=== PATIENT | male | born 1955 | race Caucasian/White ===

== ENCOUNTER 2018-01-26 15:08 | Inpatient (IN) | payer OTHER ==
[2018-01-26] MEDS ORDERED: Ondansetron INJ* 2 MG/ML VIAL IV ONE (15:37)
[2018-01-26] MEDS ORDERED: NS 0.9% 1000 ML* 1,000 ML IV ONE (15:37)
[2018-01-26 16:02] LABS: ABS Basophils 0.1 10^3/ul (0-0.2); ABS Eosinophils 0.1 10^3/ul (0-0.6); ABS Lymphocytes 0.9 10^3/ul (1.0-4.8); ABS Monocytes 0.9 10^3/ul (0-0.8); ABS Neutrophils 13.4 10^3/ul (1.5-7.7); ABS Nucleated RBC 0 10^3/ul; Eosinophil % 0.5 % (0-6); Hematocrit 45 % (42-52); Hemoglobin 15.5 g/dl (14.0-18.0); Lymphocyte % 5.9 % (25-47); Mean Corpuscular HGB Conc 34 g/dl (31-36); Mean Corpuscular Hemoglobin 29 pg (27-31); Mean Corpuscular Volume 84 fL (80-94); Nucleated Red Blood Cells % 0.1; Platelet Count 356 10^3/ul (150-450); Red Blood Count 5.44 10^6/ul (4.00-5.40); Red Cell Distribution Width 16 % (10.5-15); White Blood Count 15.3 10^3/ul (3.5-10.8)
[2018-01-26] MEDS ORDERED: Aspirin 81 mg CHEW TAB* 81 MG TAB.CHEW PO ONE (16:11)
--- NOTE | 2018-01-26 16:14 | ED ---
Abdominal Pain/Male - HPI Summary HPI Summary: This is scribe Jed Attebdomenica documenting for attending Stew Alcala. Patient is a 62 y/o M c/o intermittent CP onset ~3 weeks ago. Assoc. Sx: abd pain, decreased PO intake, N/V/D, insect bites. He reports not having eaten for 3 weeks and has trouble keeping fluids down. Patient says that he keeps up with his medications but has not been seen by a physician since October. Per Nurse note, Pt is unkept and has insects crawling on his RL prosthetic extremity; They also note that he appears to have insect bites, petechia possible. Patient reportedly has raw red excoriated skin and dried fecal matter under his abd flap. Pt reportedly has particles of food in his hair and david. PMHx: CAD. Massey, Dr. Alcala, personally performed the services described in this documentation as scribed in my presence and it is both accurate and complete. - History of Current Complaint Stated Complaint: ABD PAIN Time Seen by Provider: 01/26/18 15:16 Hx Obtained From: Patient Onset/Duration: Gradual Onset, Lasting Weeks, Still Present Timing: Intermittent Associated Signs And Symptoms: Positive: Decreased Appetite - Decreased PO intake, Nausea, Vomiting, Diarrhea, Other - POS: abd pain, insect bites - Allergies/Home Medications Allergies/Adverse Reactions: Allergies Allergy/AdvReac Type Severity Reaction Status Date / Time No Known Allergies Allergy Verified 02/29/16 07:26 Home Medications: Home Medications Albuterol/Ipratropium RESP(NF) [Combivent Respimat(NF)] 2 puff INH Q6HR [History Confirmed 01/26/18] Atorvastatin* [Lipitor*] 20 mg PO DAILY 01/26/18 [History Confirmed 01/26/18] Gabapentin CAP(*) [Neurontin 100 mg CAP(*)] 200 mg PO TID 01/26/18 [History Confirmed 01/26/18] Ibuprofen TAB* [Advil TAB*] 400 mg PO Q6H PRN 01/26/18 [History Confirmed ] Insulin GLARGINE(*) [Lantus(*)] 50 units SUBCUT BID 01/26/18 [History Confirmed 01/26/18] Insulin LISPRO* [HumaLOG*] 40 units SUBCUT TID AC 01/26/18 [History Confirmed ] Metoprolol Tartrate TAB* [Lopressor TAB*] 50 mg PO BID 01/26/18 [History Confirmed 01/26/18] Ramipril CAP* [Altace CAP*] 5 mg PO BID 01/26/18 [History Confirmed 01/26/18] amLODIPine TAB* [Norvasc 5 mg TAB*] 5 mg PO BID 01/26/18 [History Confirmed ] metFORMIN* [Glucophage 500 MG TAB *] 1,000 mg PO BID 01/26/18 [History Confirmed 01/26/18] PMH/Surg Hx/FS Hx/Imm Hx Endocrine/Hematology History: Reports: Hx Diabetes Denies: Hx Sickle Cell Disease Cardiovascular History: Reports: Hx Angina, Hx Coronary Artery Disease - 5 STENTS, Hx Hypercholesterolemia, Hx Hypertension, Hx Myocardial Infarction, Hx Peripheral Vascular Disease, Other Cardiovascular Problems/Disorders - 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 Denies: Hx Congestive Heart Failure, Hx Deep Vein Thrombosis, Hx Pacemaker/ ICD, Hx Valvular Heart Disease Respiratory History: Reports: Hx Chronic Obstructive Pulmonary Disease (COPD), Hx Pneumonia Denies: Hx Asthma, Hx Seasonal Allergies, Hx Sleep Apnea - -NO LONGER USES A C-PAP GI History: Reports: Hx Gastroesophageal Reflux Disease, Hx Ulcer Denies: Hx Hiatal Hernia, Other GI Disorders History: Denies: Other Problems/Disorders Musculoskeletal History: Reports: Hx Arthritis - HIPS, KNEES, ANKLE, Hx Back Problems - DDD, Other Musculoskeletal History - DDD, current treatment for Diabetic ulcer right foot and s/p 1st toe amputa Denies: Hx Gout, Hx Osteoporosis Sensory History: Reports: Hx Contacts or Glasses, Other Sensory Impairments - Bilateral leg neuropathy Denies: Hx Cataracts, Hx Eye Injury, Hx Glaucoma, Hx Hearing Aid Opthamlomology History: Reports: Hx Contacts or Glasses, Other Sensory Impairments - Bilateral leg neuropathy Denies: Hx Cataracts, Hx Eye Injury, Hx Glaucoma Neurological History: Denies: Other Neuro Impairments/Disorders Psychiatric History: Reports: Other Psychiatric Issues/Disorders - pt describes compulsive hoarding behavior Denies: Hx Anxiety, Hx Attention Deficit Hyperactivity Disorder, Hx Eating Disorder, Hx Depression, Hx Panic Disorder, Hx Post Traumatic Stress Disorder, Hx Inpatient Treatment, Hx Community Mental Health Tx, Hx Schizophrenia, Hx Bipolar Disorder, Hx Suicide Attempt, Hx of Violent Episodes Against Others, Hx Substance Abuse - Cancer History Hx Chemotherapy: No - Surgical History Surgery Procedure, Year, and Place: spinal [id number]. GALLBLADDER REMOVED -LATE . TOE AMPUTATED BILAT FEET - 2011, 2014 Hx Anesthesia Reactions: No - Immunization History Date of Tetanus Vaccine: 2012 or more recently Date of Influenza Vaccine: Fall 2013 Infectious Disease History: Denies: Hx Clostridium Difficile, Hx Hepatitis, Hx Human Immunodeficiency Virus (HIV), History Other Infectious Disease, Traveled Outside the [place] in Last 30 Days - Family History Known Family History: Positive: Diabetes - Both parents, Other - Father c CA hx. Mother c CVA Hx - Social History Occupation: Disabled Lives: With Family Alcohol Use: None Hx Substance Use: No Substance Use Type: Reports: None Hx Tobacco Use: Yes Smoking Status (MU): Heavy Every Day Tobacco Smoker Type: Cigarettes, Cigars Amount Used/How Often: 1/2 TO 1 PPD Length of Time of Smoking/Using Tobacco: 46 years Have You Smoked in the Last Year: Yes Review of Systems Positive: Other - POS: insect bites, decreased PO intake Positive: Abdominal Pain, Vomiting, Diarrhea, Nausea All Other Systems Reviewed And Are Negative: Yes Physical Exam - Summary Physical Exam Summary: VITAL SIGNS: Reviewed. GENERAL: Patient is an elderly and unkept male who is lying comfortable in the stretcher. Patient is not in any acute respiratory distress. HEAD AND FACE: Normocephalic and atraumatic. EYES: PERRLA, EOMI x 2, No injected conjunctiva. EARS: Hearing grossly intact. Ear canals and tympanic membranes are WNL. MOUTH: dry oral mucosa. NECK: Supple, trachea is midline, no adenopathy, no JVD. CHEST: Symmetric, no tenderness at palpation LUNGS: Clear to auscultation bilaterally. No wheezing or crackles. CVS: RRR, S1 and S2 present, no murmurs or gallops appreciated. ABDOMEN: Epigastric tenderness, pulsating mass felt. EXTREMITIES: BKA - R leg NEURO: Alert and oriented x 3. No acute neurological deficits. Speech is normal. SKIN: Dry and warm Triage Information Reviewed: Yes Vital Signs Reviewed: Yes Diagnostics - Laboratory Lab Results: Lab Results 01/26/18 Range/Units 15:45 WBC 15.3 H (3.5-10.8) 10^3/ul RBC 5.44 H (4.00-5.40) 10^6/ul Hgb 15.5 (14.0-18.0) g/dl Hct 45 (42-52) % MCV 84 (80-94) fL MCH 29 (27-31) pg MCHC 34 (31-36) g/dl RDW 16 H (10.5-15) % Plt Count 356 (150-450) 10^3/ul MPV 8.0 (7.4-10.4) um3 Neut % (Auto) 87.5 H (38-83) % Lymph % (Auto) 5.9 L (25-47) % Anderson % (Auto) 5.6 (0-7) % Eos % (Auto) 0.5 (0-6) % Baso % (Auto) 0.5 (0-2) % Absolute Neuts (auto) 13.4 H (1.5-7.7) 10^3/ul Absolute Lymphs (auto) 0.9 L (1.0-4.8) 10^3/ul Absolute Monos (auto) 0.9 H (0-0.8) 10^3/ul Absolute Eos (auto) 0.1 (0-0.6) 10^3/ul Absolute Basos (auto) 0.1 (0-0.2) 10^3/ul Absolute Nucleated RBC 0 10^3/ul Nucleated RBC % 0.1 Result Diagrams: 01/26/18 15:45 01/26/18 15:45 Lab Statement: Any lab studies that have been ordered have been reviewed, and results considered in the medical decision making process. - EKG 1541 Cardiac Rate: Tachycardia - 100 bpm EKG Interpretation: AVF in 3 EKG Comparison: Other - different from EKG done on 08/26/14 1738 Cardiac Rate: NL - 95 bpm EKG Interpretation: AVF in 3 EKG Comparison: Other - similar to previous EKG this date. Abdominal Pain Fem Course/Dx - Course Assessment/Plan: This patient is a 62-year-old male who presents to the emergency department with a chief complaint of having nausea vomiting abdominal pain this patient in the epigastric area for the last 3 weeks. The patient reports that he hasn't been eating and drinking as every time he tries he has nausea and vomiting. The patient denies any chest pain, shortness of breath or palpitations. The patient denies any back pain, palpitations or feeling that he is going to pass out. Pain is a dull aching pain in the epigastric area. The patient reports that the pain gets worse when he eats. The pain is constant is not intermittent. The severity is changing. Patient has past medical history significant for an WI status post cardiac catheterization, coronary artery disease, type 2 diabetes, hypertension, dyslipidemia, COPD, question myelitis, obstructive sleep apnea, delirium, neuropathy, and right below knee amputation. In the ED course the patient was placed in an cafeteria monitor, 2 IV assesses with obtained, patient was given aspirin. EKG shows that the patient has an excellent the patient in leads [address] an [address] depression in aVL. This EKG is changed from a previous EKG done on 08/26/14. Therefore I discussed case with Dr. Rodríguez from cardiology. He reviewed the EKG with Dr. Mireles from interventional radiology and he requests to get the troponins results since the patient is having chest pain for approximately 3 weeks. Blood test results shows a what was a count of 15.3, 87.5 neutrophils, sodium 127, BUN/creatinine 26, glucose 174, Symptom 0.4 Total Bili 1.3, AST of 51, alkaline phosphatase 394 , CK-MB of 14.6 and troponin 0.38 CRP of 76.[address] Mireles interventional radiologist came down and saw the patient and he recommends to repeat the CK-MB and troponin and to place the patient in heparin drip. He also recommends to admit the patient to the hospitalist services. He already had discussed the case with Dr. Simmons who accepted the patient for admission. At this point the patient is hemodynamically stable alert and oriented 3. Abdominopelvic CT impression: 1. Cirrhotic liver morphology with extensive hepatic lesions consistent with diffuse hepatic metastasis. 2. Extensive infradiaphragmatic adenopathy as described. 3. Mild circumferential thickening of the distal esophagus suggests the possibility of esophageal neoplasia. 4. Mild splenomegaly. 5. Small amount of ascites. Patient continues to be hemodynamically stable alert and oriented 3. - Diagnoses Provider Diagnoses: STEMI (ST elevation myocardial infarction), Metastases to the liver - Provider Notifications Discussed Care Of Patient With: Madan Rodríguez Time Discussed With Above Provider: 16:15 Instructed by Provider To: Other - Provider spoke with Dr. Rodríguez regarding further care. 17:25 - Dr. Alcala spoke with Dr. Mireles, who recommended giving the patient a CPK and discussed further care of patient. 18:42 - Patient was negative for a STEMI and will be admitted to Dr. Simmons. - Critical Care Time Critical Care Time: 75-104 min Discharge - Sign-Out/Discharge Documenting (check all that apply): Patient Departure - Discharge Plan Condition: Stable Disposition: ADMITTED TO [facility] - Billing Disposition and Condition Condition: STABLE Disposition: Admitted to [facility] Attestations Scribe Attestation: I, Dr. Alcala personally performed the services described in this documentation as scribed in my presence and it is both accurate and complete. User Type: Provider with Scribe Provider Attestation: The documentation recorded by the scribe accurately reflects the service I personally performed and the decisions made by me.
[2018-01-26 16:20] LABS: EGFR Non-African American 75.5 (>60)
[2018-01-26] MEDS ORDERED: Iodixanol* (CONTRAST) 320 MG/ML 100 ML SDV IV ONE (16:32)
--- NOTE | 2018-01-26 17:58 | ECHO ---
Patient: JARVIS ALEMAN Rec#: [id number] : 1955 Date: 01/26/2018 Age: 62y Height: 175.3 cm / 69.0 in Weight: 90.9 kg / 200.3 lbs Sex: M BSA: 2.07 Room#: ED19 Admit Date#: 01/26/2018 Type: Inpatient Referring: Deniz Farrar DO Reading: Deniz Farrar DO Electronic Communications Technician: Radha Beach RDCS CC: Tree Hernandez MD Transthoracic Echocardiogram Indication: CAD HR: 98 Rhythm: NSR Findings History: Angina,CAD,prior PCI,HLD,HTN,AR,PVD,COPD,GERD. Technical Comments: The study is technically difficult. Completed at 1743. The study is technically limited due to the patient's history of COPD. Left Ventricle: The left ventricular chamber size is normal. Mild concentric left ventricular hypertrophy is observed. There is a focal wall motion abnormality present. There is mildly decreased left ventricular systolic function. The estimated ejection fraction is 45-50%. Abnormal left ventricular diastolic function is observed. Left Atrium: The left atrial chamber size is normal. Right Ventricle: The right ventricular cavity size is normal. The right ventricular global systolic function is mildly reduced. Right Atrium: The right atrial cavity size is normal. Aortic Valve: The aortic valve is trileaflet. The aortic valve leaflets are mildly thickened. There is aortic annular calcification.that is mild There is no evidence of aortic regurgitation. There is no evidence of aortic stenosis. Mitral Valve: Severe mitral annular calcification present.that is predominantly posterior and extends into the subvalvular apparatus The mitral valve leaflets are mildly thickened. There is no evidence of mitral regurgitation. There is mild mitral stenosis. non-rheumatic Tricuspid Valve: The tricuspid valve leaflets are normal. There is no evidence of tricuspid valve regurgitation. Unable to estimate the right ventricular systolic pressure. There is no tricuspid stenosis. Pulmonic Valve: The pulmonic valve appears normal. There is no evidence of pulmonic regurgitation. There is no pulmonic stenosis. Pericardium: The pericardium appears normal. There is no significant pericardial effusion. Aorta: There is no dilatation of the ascending aorta. There is no dilatation of the aortic arch. There is no dilation of the aortic root. Pulmonary Artery: The main pulmonary artery is not well visualized. Venous: The venous system is not well visualized. Conclusions The left ventricular chamber size is normal. Mild concentric left ventricular hypertrophy is observed. There is mildly decreased left ventricular systolic function. The estimated ejection fraction is 45-50% with hypokinesis of the basal to mid inferior/inferolateral wall The right ventricular cavity size is normal. The right ventricular global systolic function is mildly reduced. Severe mitral annular calcification present.that is predominantly posterior and extends into the subvalvular apparatus associated with mild non-rheumatic mitral stenosis Unable to estimate the right ventricular systolic pressure. Compared to prior study from 12/2011, a focal wall motion abnormality and mild RV hypokinesis are now present (both normal prior). Measurements Name Value Normal Range RVIDd (AP) 2D 2.1 cm (0.9 - 2.6) RVDdMajor (2D) 2.6 cm (2.2 - 4.4) RAd ISD 4CH 3.5 cm (3.4 - 4.9) RA (A4C)W 3.3 cm (2.9 - 4.6) IVSd (2D) 1.1 cm (0.6 - 1) LVPWd (2D) 1.1 cm (0.6 - 1) LVIDd (2D) 3.6 cm (3.6 - 5.4) LVIDs (2D) 3.5 cm - LV FS (2D) 5 % (25 - 45) Aortic Annulus 2.3 cm (1.4 - 2.6) Ao root diameter (2D) 3.1 cm (2.1 - 3.5) Ascending Ao 2 cm (2.1 - 3.4) Aortic arch 2 cm (1.8 - 3.4) Descending Ao 0.6 cm - LA dimension (AP) 2D 3.6 cm (2.3 - 3.8) LAd ISD 4CH 5.1 cm (2.9 - 5.3) LA ISD 4CH W 3.5 cm (2.5 - 4.5) Name Value Normal Range LA ESV SP 4CH (A/L) 16 ml - LA ESV SP 2CH (A/L) 30 ml - LA ESV BP (A/L) index 23 ml/m2 - Name Value Normal Range MV E-wave Vmax 1 m/sec - MV deceleration time 143 msec - MV A-wave Vmax 1.7 m/sec - MV E:A ratio 0.8 ratio - LV septal e' Vmax 0.06 m/sec - LV lateral e' Vmax 0.09 m/sec - LV E:e' septal ratio 16.67 ratio - LV E:e' lateral ratio 11.11 ratio - Name Value Normal Range AV Vmax 1.3 m/sec - AV VTI 20.6 cm - AV peak gradient 6 mmHg - AV mean gradient 3 mmHg - LVOT diameter 2.2 cm - LVOT Vmax 0.9 m/sec - LVOT VTI 15.3 cm - LVOT peak gradient 3 mmHg - LVOT mean gradient 1 mmHg - Name Value Normal Range MV PHT 46 msec - MR Vmax 1.7 m/sec - MR VTI 30.8 cm - MVA (PHT) 4.8 cm2 - MVA (continuity VTI) 1.9 cm2 - Name Value Normal Range PV Vmax 1.1 m/sec - PV peak gradient 5 mmHg -
[2018-01-26] MEDS ORDERED: Heparin DRIP 25,000 UNITS(*) 25,000 UNITS/500 ML BAG IV SCH ×3 (18:30→20:00)
[2018-01-26] MEDS ORDERED: Ticagrelor* 90 MG TAB PO SCH (19:00)
[2018-01-26] MEDS ORDERED: Metoprolol Tartrate TAB* 25 MG PO SCH (19:00)
[2018-01-26] MEDS ORDERED: Heparin DRIP 25,000 UNITS(*) 25,000 UNITS/500 ML BAG ONE (19:40)
[2018-01-26] MEDS ORDERED: Heparin VIAL(*) 5000 UNITS/ML VIAL (FIVE THOUSAND) ONE (19:40)
--- NOTE | 2018-01-26 19:40 | RAD ---
INDICATION: Abdominal pain COMPARISON: CT aortogram and runoff July 20, 2015 TECHNIQUE: Axial source images were obtained from the hemidiaphragms to the symphysis pubis following administration of oral and intravenous contrast. 100 mL Visipaque 320 was utilized. Coronal and sagittal reconstructed images were acquired. There is suboptimal contrast opacification due to difficulties with the IV. Lung bases: The lung bases are clear. There is prior cardiothoracic surgery and/or stenting Liver: There is cirrhotic liver morphology. There are numerous hepatic lesions consistent with diffuse hepatic metastasis. These involve both right and left hepatic lobes. Similar lesions are confluent. The largest lesions measure approximately 4 cm Gallbladder: Cholecystectomy. Spleen: The spleen is mildly enlarged measuring 14 cm in diagonal dimension. There are no masses. Pancreas: No definitive focal pancreatic findings or ductal dilatation. There is extensive adjacent adenopathy is noted below. Adrenal glands: There is no evidence of adrenal mass. Kidneys: The kidneys are normal in size and position. There are prompt nephrograms and there is prompt excretion bilaterally. There is a 5 cm left renal cyst. There is also a left-sided parapelvic cyst There is no evidence of nephrolithiasis. Adenopathy: There is extensive adenopathy. There are multiple enlarged lymph nodes at the diaphragmatic hiatus. There is a confluent periportal mass measuring approximately 6 cm in greatest transverse dimension and there are multiple additional smaller peripancreatic and retroperitoneal lymph nodes extending to near the bifurcation. Fluid collections: There is a small amount of ascites and a right-sided diaphragmatic location anteriorly. Vessels:There are atherosclerotic changes involving the aorta and iliac vessels. There is no focal aneurysm. The IVC appears normal. GI tract: There are no acute CT bowel findings. There is no obstruction. There is circumferential mural thickening of the distal esophagus worrisome for esophageal neoplasia. There are no specific abnormalities the lower GI tract. Pelvic organs: The prostate and seminal vesicles appear normal Bladder: There are no bladder masses. Abdominal and pelvic soft tissues: The extraperitoneal abdominal and pelvic soft tissues appear normal.. Osseous structures: There are advanced osteoarthritic changes of thoracolumbar spine. There is grade 2 anterolisthesis of L5-S1 with evidence of prior surgical fusion at L4-S1. Other: None IMPRESSION: 1. Cirrhotic liver morphology with extensive hepatic lesions consistent with diffuse hepatic metastasis. 2. Extensive infradiaphragmatic adenopathy as described. 3. Mild circumferential thickening of the distal esophagus suggests the possibility of esophageal neoplasia. 4. Mild splenomegaly. 5. Small amount of ascites.
[2018-01-26] MEDS ORDERED: Heparin VIAL(*) 5000 UNITS/ML VIAL (FIVE THOUSAND) IV ONE (20:09)
[2018-01-26] MEDS ORDERED: Ondansetron INJ* 2 MG/ML VIAL IV PRN (20:17)
[2018-01-26] MEDS ORDERED: Heparin VIAL(*) 5000 UNITS/ML VIAL (FIVE THOUSAND) IV PRN (20:42)
[2018-01-26] MEDS ORDERED: Dextrose 50% Syringe 50 ML* 25 GM/50 ML SYRINGE IV PUSH PRN (20:44)
[2018-01-26] MEDS ORDERED: Atorvastatin* 80 MG TAB PO ONE (21:00)
--- NOTE | 2018-01-26 22:21 | HP ---
CC: Dr. Hernandez * HISTORY AND PHYSICAL: DATE OF ADMISSION: 01/26/18. PRIMARY CARE PROVIDER: Dr. Hernandez. CHIEF COMPLAINT: Abdominal pain and difficulty keeping food down. HISTORY OF PRESENT ILLNESS: Mr. Driscoll is a 62-year-old male, who has a history of coronary artery disease, type 2 diabetes, hypertension, peripheral vascular disease, and hyperlipidemia, who presents to the emergency room with approximately 1 month of abdominal pain and difficulty keeping food down. The patient states that he has had midabdominal pain for approximately last 1 month. It seems to come and go. In addition to the pain, he notes that any times he tries to eat anything within a couple minutes he vomits it back up. The patient believes that he may have lost upwards 100 pounds. According to records from [facility], the patient was about 222 pounds in January 2016 and is currently weighing 189 pounds. The patient denies any changes in bowel movements. He states that the stool consistency has been normal. He ultimately was feeling no better and therefore presented to the emergency room today. In addition to the abdominal pain, the patient does state that off and on over the last month or so, he has had chest discomfort. He states that he feels like he was punched in the chest. He states that it would last anywhere from a couple minutes to about 20 minutes. He has no associated symptoms such as diaphoresis, nausea, or shortness of breath. The patient states that he last saw his primary care provider approximately 3 months ago and at that time he felt essentially at his baseline. PAST MEDICAL HISTORY: 1. Coronary artery disease. 2. Hypertension. 3. Type 2 diabetes. 4. Peripheral vascular disease. 5. Hyperlipidemia. PAST SURGICAL HISTORY: 1. Cholecystectomy. 2. Right below knee amputation. 3. Left first toe amputation. 4. Back surgery. MEDICATIONS: 1. Ramipril 5 mg p.o. b.i.d. 2. Metformin 1000 mg p.o. b.i.d. 3. Metoprolol tartrate 50 mg p.o. b.i.d. 4. Lispro 40 units subcutaneous t.i.d. a.c. 5. Lantus 50 units subcutaneous b.i.d. 6. Ibuprofen 400 mg p.o. q.6 hours p.r.n. pain. 7. Combivent Respimat 2 puffs inhaled q.6 hours. 8. Gabapentin 200 mg p.o. t.i.d. 9. Famotidine 40 mg p.o. b.i.d. 10. Lipitor 20 mg p.o. daily. 11. Amlodipine 5 mg p.o. b.i.d. 12. Aspirin 325 mg p.o. daily. 13. Amitriptyline 25 mg p.o. nightly. ALLERGIES: No known drug allergies. FAMILY HISTORY: Mom may be at the age of 70. He was not quite sure why she , he thought possibly a cancer. Dad at age of 81. He thinks that he of pancreatic cancer though was not completely sure. SOCIAL HISTORY: The patient is smoking approximately a quarter pack per day, but had smoked 3 quarters to 1 pack per day previously, he smoked since the age of 15. He denies any alcohol use. He denies any recreational drug use. 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 He is . He has 2 children. He indicates that his niece, Maricruz Mayer, would be his healthcare proxy. REVIEW OF SYSTEMS: A complete 11-system review of systems is obtained. Pertinent positives and negatives are as per HPI. In addition, the patient does state that his appetite had been poor in addition to not been able to keep food down. He has had an occasional cough without any sputum production and he feels that his urine has been slightly red tinged at times. Otherwise, review of systems is as per HPI and otherwise negative. PHYSICAL EXAMINATION GENERAL: The patient is a well-developed, disheveled appearing middle-aged male seen sitting up in the stretcher, in no acute distress. VITAL SIGNS: Blood pressure 142/87, pulse 93, respirations 19, temp 97.2, O2 sat 84% on room air. HEENT: Pupils are equal and round. Extraocular muscles are intact. Oropharynx is clear. Oral mucosa is moist. The patient is edentulous. NECK: There is no submandibular, cervical or supraclavicular adenopathy. Thyroid is not enlarged. No thyroid nodules noted. PULMONARY: Lungs are clear to auscultation bilaterally. CARDIAC: Normal S1, S2. Regular rate and rhythm. I did not appreciate any murmurs. There is no edema to the left lower extremity. ABDOMEN: Bowel sounds are present. Abdomen is soft, nontender, nondistended. MUSCULOSKELETAL: The patient is status post right below knee amputation. He has his prosthesis on. There is full active range of motion of all 4 extremities. SKIN: Warm though his left foot is somewhat cool to touch. The patient has areas of brownish thickened skin scattered across this body. He has very coarse thick scaly skin noted to the left foot. There is what appeared to be petechiae on the arms as well as a slightly erythematous raised scaly rash on the arms. NEUROLOGIC: Cranial nerves II through XII are grossly intact. Sensation is intact to light touch throughout. Strength is 5/5 and symmetric both upper and lower extremities bilaterally. PSYCH: The patient is alert. He is oriented x3. Affect appears appropriate. DIAGNOSTIC STUDIES/LAB DATA: Labs: WBC 15.3, hemoglobin 15.5, hematocrit 45, platelets 356. Sodium 127, potassium 4.7, chloride 92, CO2 of 26, BUN 26, creatinine 1.0, glucose 173, lactic acid 1.9, calcium 10.4. Bilirubin 1.3, AST 51, ALT 19, alk phos 394. Ammonia 43, CPK 48. CK-MB 14.6, troponin 0.38. CRP 76.33. BNP 284. Albumin 3.4, lipase 16. EKG reveals sinus tachycardia with mild ST elevation in leads III and aVF with Q waves in leads III and aVF. Transthoracic echocardiogram reveals mild concentric LVH. There is mildly decreased left ventricular systolic function with an estimated EF of 45% to 50% . There is hypokinesis of the basal and mid inferior/inferior lateral wall. The right ventricular global systolic function is mildly reduced. There is severe mitral annular calcification present that is predominantly posterior and extends into the subvalvular apparatus associated with mild nonrheumatic mitral stenosis. Compared to the prior study of December 2011, a focal wall motion abnormality and mild right ventricular hypokineses are not present. Both were previously normal. CT abdomen and pelvis reveals cirrhotic liver morphology with extensive hepatic lesions consistent with a few hepatic metastasis. There is extensive infradiaphragmatic adenopathy. There is mild circumferential thickening of the distal esophagus suggesting the possibility of esophageal neoplasia. There is mild splenomegaly. There is a small amount of ascites. There is a 5-cm left renal cyst. There is also a left-sided parapelvic cyst. There is no evidence of nephrolithiasis. ASSESSMENT AND PLAN: Mr. Driscoll is a 62-year-old male with a history of coronary artery disease, type 2 diabetes, hypertension, peripheral vascular disease, and hyperlipidemia, who presents to the emergency room with complaints of approximately 1 month of intermittent abdominal pain and inability to keep food down and subsequently also admits to intermittent chest pain. 1. Probable subacute myocardial infarction. The patient likely had a myocardial infarction within the last few days. The patient's troponin initially was 0.38 and trended down to 0.34 on subsequent draw approximately 2 hours and 15 minutes after the first. The patient was seen in the emergency room by Dr. Mireles for ST elevation on his EKG. At this point, Dr. Mireles has recommended treating the patient with dual antiplatelet therapy as well as the heparin drip. This has been initiated. The patient will also continue on metoprolol and I will increase his Lipitor to 40 mg daily. Cardiology will continue to follow along though given the probable new diagnosis of metastatic cancer, unclear if the patient would benefit from undergoing cardiac catheterization at this time. 2. Dysphagia/abdominal pain/hepatic metastasis. At this point, it is likely the patient has metastatic cancer. The primary is not completely clear; however , given the patient's symptoms of vomiting very shortly after eating, I am concerned that this could represent esophageal cancer. The patient will need a GI consultation. The patient's LFTs are up and this is likely related to the hepatic metastasis. I did inform the patient of findings of the CAT scan. 3. Hyponatremia. The patient's sodium level is low at 127. I suspect this is secondary to dehydration as the patient has not been eating or drinking well over the last 1 month. He will be started on normal saline at 75 mL per hour. Followup labs will be obtained tomorrow. 4. Hypercalcemia. This likely is secondary to dehydration, but may also be related to an underlying cancer. This will need to be followed closely. 5. Leukocytosis. The patient has a moderate leukocytosis of 15.3. It does not describe any concerning symptoms for infection. This will just be monitored for now. 6. Type 2 diabetes. I am going to hold the patient's usual doses of insulin and for now we will place him on lispro sliding scale as it is unclear with him not eating or drinking well where his sugars will land. The patient will be given a full liquid diet for now due to his issues with swallowing food. 7. Hypertension. The patient's blood pressure is moderately elevated currently. We will monitor his blood pressure on his usual doses of metoprolol, amlodipine, and ramipril. 8. DVT prophylaxis: According to the Adult Thrombosis Prophylaxis Risk Factor Assessment Guide, the patient has a total risk factor score of 4 (this does not include the likely diagnosis of cancer) making him high risk. He will be on a heparin drip for the subcutaneous myocardial infarction. 9. Code status is full. TIME SPENT: Seventy minutes were spent admitting this patient. [id number]/CPS #: [id number] MTDD
[2018-01-27] MEDS: Amitriptyline TAB* 25 MG PO SCH ×2 (00:27→22:06)
[2018-01-27] MEDS: Ramipril CAP* 5 MG PO SCH ×3 (00:28→22:06)
[2018-01-27] MEDS: Metoprolol Tartrate TAB* 50 mg PO SCH ×3 (00:28→22:06)
[2018-01-27] MEDS: Gabapentin CAP(*) 100 MG PO SCH ×4 (00:28→22:06)
[2018-01-27] MEDS: Famotidine TAB* 20 MG PO SCH ×3 (00:28→22:06)
[2018-01-27] MEDS: Insulin LISPRO* 1 UNITS UNIT SUBCUT SCH ×5 (00:43→21:45)
[2018-01-27] MEDS ORDERED: Atorvastatin* 40 MG TAB PO SCH (00:45)
[2018-01-27] MEDS: Atorvastatin* 40 MG TAB PO SCH ×2 (01:16→22:06)
[2018-01-27] MEDS: NS 0.9% 1000 ML* 1,000 ML IV SCH ×2 (02:35→16:05)
[2018-01-27] MEDS: Albuterol/Ipratropium RESP(NF) MDI (Combivent Respimat) INH SCH ×2 (05:53→05:55)
[2018-01-27] MEDS ORDERED: Albuterol/Ipratropium NEB.SOL* Albuterol 2.5 MG/Ipratropium 0.5 MG 3 ML INH SCH (08:00)
[2018-01-27] MEDS ORDERED: Albuterol HFA INHALER* 8 gm MDI INH PRN (08:39)
[2018-01-27] MEDS ORDERED: Albuterol/Ipratropium NEB.SOL* Albuterol 2.5 MG/Ipratropium 0.5 MG 3 ML INH PRN (08:39)
[2018-01-27] MEDS ORDERED: Aspirin TAB* 325 MG PO SCH (09:00)
[2018-01-27 10:18] LABS: ABS Basophils 0.1 10^3/ul (0-0.2); ABS Eosinophils 0.1 10^3/ul (0-0.6); ABS Lymphocytes 0.7 10^3/ul (1.0-4.8); ABS Monocytes 0.7 10^3/ul (0-0.8); ABS Neutrophils 8.8 10^3/ul (1.5-7.7); ABS Nucleated RBC 0 10^3/ul; Hematocrit 38 % (42-52); Hemoglobin 13.1 g/dl (14.0-18.0); Lymphocyte % 6.9 % (25-47); Mean Corpuscular HGB Conc 34 g/dl (31-36); Mean Corpuscular Hemoglobin 29 pg (27-31); Mean Corpuscular Volume 84 fL (80-94); Mean Platelet Volume 7.7 um3 (7.4-10.4); Nucleated Red Blood Cells % 0.1; Platelet Count 248 10^3/ul (150-450); Red Blood Count 4.53 10^6/ul (4.00-5.40); Red Cell Distribution Width 16 % (10.5-15); White Blood Count 10.4 10^3/ul (3.5-10.8)
[2018-01-27] MEDS: Aspirin 81 mg CHEW TAB* 81 MG TAB.CHEW PO SCH (10:28)
[2018-01-27 10:35] LABS: EGFR Non-African American 97.6 (>60)
[2018-01-27] MEDS ORDERED: Nitroglycerin TAB 0.4 MG* 0.4 MG TAB SL PRN (11:30)
[2018-01-27] MEDS ORDERED: Nitroglycerin TAB 0.4 MG* 0.4 MG TAB ONE (11:34)
--- NOTE | 2018-01-27 11:57 | CONS ---
CC: Dr. Tree Hernandez, the [facility] on [facility] in [place] CARDIOLOGY CONSULTATION NOTE: DATE OF CONSULT: 01/26/18 REASON FOR CONSULT: Asked by Dr. Alcala in the emergency room to assess the patient with abnormal EKG and troponin with history of coronary artery disease. HISTORY OF PRESENT ILLNESS: The patient is a 62-year-old white male who states he has been sick for possibly 1 month with lower chest discomfort and upper epigastric discomfort. He states that it gene rally will last some 20 minutes. There was not significant radiation. He has tried nitroglycerin an d at times it would help. It was difficult for him to say whether or not it definitely occurred with exertion. In general, he was a poor historian. He has been unable to keep food down or drink and dennis s been feeling weak in general. He is not taking care of himself and comes in very unkempt with actu al insects crawling on his right lower leg prosthesis. Because of persistence of symptoms, he present ed to the emergency room, not specifically because he had a severe episode at the time of coming to [facility] ER. In the emergency room, an EKG was done that showed minimal ST segment elevation in III and aV F with Q-waves already developed. There was no significant reciprocal changes seen. Dr. Alcala initi ally called Dr. Farrar. Dr. Farrar deferred calling a STEMI CIERA and as such, I am now seeing the pa tient. The patient's initial troponin came back at 0.38. There was no CPK or MB ordered and I order ed that and it eventually came back a total CPK of 48 and an MB of 14.6. A repeat EKG that was done some 2 hours later showed no significant change compared to the first one and of note, the patient st ates he was completely free of any chest or jaw or arm discomfort. His past cardiac history includes a history of stents placed to the circumflex for an acute posterior wall myocardial infarction on 12/10/11. His EKG at that time demonstrated marked ST segment elevati on inferiorly in V4 through [address] segment depression in V1 through V3. The next day on , he had stenting of the LAD. He had moderate proximal disease in the LAD, in the proximal RCA and mid to distal right coronary artery. He had a stress test done in February 2016 that showed no ischemia or infarction and the last time I saw him in the office was 02/08/17, at which point he was not complaining about any significant cardiac symptoms. Specifically, his biggest problem was perip heral vascular disease, for which he had attempts at interventions, which were unable to give a compl ete result and as such, he had amputation work done. He obviously was not overly exerting himself du e to his problems. Unfortunately, he continued to smoke, despite all efforts urging him to stop as w ell as Dr. Hernandez urging him to stop as well. His last cholesterol check was found to be well within guideline range from that office visit. PAST MEDICAL HISTORY: Significant for hyperlipidemia, hypertension, insulin- requiring diabetes isabela itus, peripheral vascular disease. PAST SURGICAL HISTORY: Included amputation work. CURRENT MEDICATIONS: At home had revealed; 1. Ramipril 5 mg twice a day. 2. Metformin 1000 mg twice a day. 3. Metoprolol tartrate 50 mg twice a day. 4. Humalog 40 units t.i.d. with meals. 5. Lantus 50 units subcu b.i.d. 6. Ibuprofen p.r.n. 7. Albuterol inhaler 2 puffs q.6 hours. 8. Gabapentin 200 mg 3 times a day. 9. Famotidine 40 mg twice a day. 10. Atorvastatin was listed at 20 mg a day, although my last office note when I saw him last year dennis d him at 80 mg a day. I do not have any knowledge of him having had it decreased. 11. Amlodipine 5 mg twice a day. 12. A full dose aspirin 325 a day. 13. Amitriptyline 25 mg at bedtime. 14. It should be noted that the last time I saw him in the office, he was on clopidogrel to treat sissy th his peripheral vascular disease and his coronary artery disease. PHYSICAL EXAM: When I saw him in the emergency room revealed: General: The patient appeared quite disheveled with food in his david and reported insects on his lower prosthesis. In general, he appea red to be unkempt. Vital Signs: Blood pressure 140/86, heart rate was 94, respirations were 20, O2 saturation was 99% on room air. Neck was supple. I could not appreciate increased JVP. Carotids dennis d fair upstroke and volume. There were no definitive bruits or transmitted murmurs. Conjunctivae wer e pink. Sclerae clear. Lungs revealed no accessory muscle usage. There was fair excursion. I do no t hear any active rales, rhonchi, or wheezes. Heart revealed no visible heaves. No palpable heaves o r thrills. A soft systolic murmur was noted at the left sternal border. Abdomen was obese. I could not assess accurately for organomegaly. Extremities had the amputation of the right lower extremity. Neurological: The patient had appeared alert and oriented. Musculoskeletal: He moves all extremit ies appropriately. Psychological: The patient with normal affect. DIAGNOSTIC STUDIES/LAB DATA: Laboratory results in the emergency room, white count was 15,300 with a hemoglobin and hematocrit of 15.5 and 45 and platelet count of 356,000. His sodium was 127, potassi um 4.7, chloride 92, bicarb 26, BUN and creatinine 26 and 1.0. His glucose was 174, calcium 10.4. T otal bili 1.3, SGOT 51, SGPT 19, alk phosphatase 394. Ammonia level was 43, total CPK of 48 and MB 1 4.6. Troponin 0.38. C-reactive protein 76.33. B-natriuretic peptide 284. Total protein 77, albumi n 3.4, lipase 16, lactic acid 1.9. A repeat CPK 38, MB 10.1, troponin 0.34. EKG initially dated 01/26/18 timed 1541 showed sinus tachycardia, heart rate of 100, minimal J-point elevation in III and aVF with significant Q-waves already present and minimal R-waves in III and aVF. There were no significant reciprocal changes with flat ST-segment and aVL. Repeat EKG done approxi mately 2 hours later showed no dramatic change. A transthoracic echocardiogram was performed and interpreted by Dr. Farrar revealing mild concentric left ventricular hypertrophy with a mildly decreased systolic function. EF 45% to 50% with focal wal l motion abnormalities with hypokinesis of the basal to mid inferolateral wall and a question of mild ly reduced right ventricular systolic function. Severe mitral annular calcification posteriorly exte nding into the subvalvular structures with mild non-rheumatic mitral stenosis suggested. Compared to the prior study, the focal wall motion abnormality at LV and RV are noted. Both were prior normal. OVERALL ASSESSMENT: Mr. Driscoll now presents with lower chest abdominal discomfort with an abnormal EKG suggesting an inferior wall myocardial infarction age indeterminate. His 2 sequential troponins do no show elevation suggesting that this is an emergent ST-segment elevation inferior wall myocardial i nfarction. At this point in time, aggressive cardiac management with beta-shine therapy and choles terol management as well as aspirin therapy will be pursued. Consideration for dual antiplatelet marvin uld be pursued if further workup does not seem to demonstrate any other cause for his current symptom atology. Heparin therapy will be instituted at this point given the potential for an acute coronary syndrome. Of note, the patient had been a DNR in the past because he did not want to be on prolonged life supporting systems and at this point in time, he will consider reversing it if there is no irre versible other causes present. We will follow him along with you. Thank you very much for asking us to see him. ADDENDUM: The patient's abdominopelvic CT came back revealing suggestive of metastatic lesions in hi s liver and a thickened esophagus suggesting possible primary neoplasia. At this point in time, I di scussed the case again with the hospitalist and the emergency room physician. They will hold on any dual antiplatelet and GI will be consulted for the potential of a biopsy to make the diagnosis. Obvi ously, no aggressive pursuits will be made at this point regarding coronary artery disease as he is n ot having an unstable situation with stable hemodynamics. We will await the results of the biopsy to give us further guidance on his general medical status. [id number]/[facility] #: [id number]
[2018-01-27] MEDS: Nystatin TOP POWDER* 15 GM BTL TOPICAL SCH ×3 (12:56→22:30)
--- NOTE | 2018-01-27 17:45 | PN ---
Subjective Date of Service: 01/27/18 Interval History: Pt complaint of sharp epigastric/xiphoid process abdominal pain, similar to what he has been having for last several weeks. Worst 9/10, improved to 5/10 with nitro then resolved. Denies SOB, N/V. EKG stable Inferior Qs with less elevated ST segments. Cardiology on board. Large liquid BM. Is able to hold down food for about "1/2 a minute" GI consulted, EGD planned monday. Objective Active Medications: Acetaminophen (Tylenol Tab*) 650 mg PO Q4H PRN PRN Reason: PAIN Albuterol (Ventolin Hfa Inhaler*) 2 puff INH Q6H PRN PRN Reason: SOB/WHEEZING Albuterol/Ipratropium (Duoneb (Albuterol 2.5 Mg/Ipratropium 0.5 Mg)) 1 neb INH Q6H PRN PRN Reason: SOB/WHEEZING Amitriptyline HCl (Elavil Tab*) 25 mg PO BEDTIME [facility] Last Admin: 01/27/18 00:27 Dose: 25 mg Aspirin (Aspirin 81 Mg Chew Tab*) 81 mg PO DAILY [facility] Last Admin: 01/27/18 10:28 Dose: 81 mg Atorvastatin Calcium (Lipitor*) 40 mg PO BEDTIME [facility] Last Admin: 01/27/18 01:16 Dose: 40 mg Dextrose (D50w Syringe 50 Ml*) 12.5 gm IV PUSH .FOR FS < 60 - SS PRN PRN Reason: FS < 60 Famotidine (Pepcid Tab*) 40 mg PO BID [facility] Last Admin: 01/27/18 10:28 Dose: 40 mg Gabapentin (Neurontin Cap(*)) 200 mg PO TID [facility] Last Admin: 01/27/18 15:47 Dose: 200 mg Sodium Chloride (Ns 0.9% 1000 Ml*) 1,000 mls @ 75 mls/hr IV PER RATE [facility] Last Admin: 01/27/18 02:35 Dose: 75 mls/hr Insulin Human Lispro (Humalog*) 0 units SUBCUT ACHS [facility]; Protocol Last Admin: 01/27/18 17:20 Dose: Not Given Metoprolol Tartrate (Lopressor Tab*) 50 mg PO BID [facility] Last Admin: 01/27/18 10:30 Dose: 50 mg Nitroglycerin (Nitroglycerin Tab 0.4 Mg*) 0.4 mg SL Q5M PRN PRN Reason: ANGINA Last Admin: 01/27/18 11:35 Dose: 0.4 mg Nystatin (Nystatin Top Powder*) 1 applic TOPICAL TID [facility] Last Admin: 01/27/18 12:56 Dose: Not Given Ondansetron HCl (Zofran Inj*) 4 mg IV Q6H PRN PRN Reason: NAUSEA Ramipril (Altace Cap*) 5 mg PO BID [facility] Last Admin: 01/27/18 10:31 Dose: 5 mg Vital Signs - 8 hr 01/27/18 01/27/18 01/27/18 10:30 11:12 15:47 Temperature 97.3 F Pulse Rate 80 Respiratory 16 18 16 Rate Blood Pressure 119/66 (mmHg) O2 Sat by Pulse 98 Oximetry Oxygen Devices in Use Now: Nasal Cannula Appearance: Chronically ill appearing, disheveled. Eyes: No Scleral Icterus Neck: NL Appearance and Movements; NL JVP Respiratory: Symmetrical Chest Expansion and Respiratory Effort, Clear to Auscultation Cardiovascular: NL Sounds; No Murmurs; No JVD, RRR Extremities: No Edema Skin: - - patchy erythema left ACF. Neurological: Alert and Oriented x 3, NL Sensation, NL Muscle Strength and Tone Nutrition: Taking PO's Result Diagrams: 01/27/18 10:00 01/27/18 10:00 Additional Lab and Data: Laboratory Results - last 24 hr 01/26/18 01/26/18 01/27/18 15:35 18:04 00:26 WBC RBC Hgb Hct MCV MCH MCHC RDW Plt Count MPV Neut % (Auto) Lymph % (Auto) [place] % (Auto) Eos % (Auto) Baso % (Auto) Absolute Neuts (auto) Absolute Lymphs (auto) Absolute Monos (auto) Absolute Eos (auto) Absolute Basos (auto) Absolute Nucleated RBC Nucleated RBC % APTT 32.2 Sodium Potassium Chloride Carbon Dioxide Anion Gap BUN Creatinine Est GFR ( Amer) Est GFR (Non-Af Amer) BUN/Creatinine Ratio Glucose POC Glucose (mg/dL) 132 H Hemoglobin A1c Calcium Total Creatine Kinase 38 CK-MB (CK-2) 10.1 H Troponin I 0.34 H* 01/27/18 01/27/18 01/27/18 04:58 07:48 10:00 WBC RBC Hgb Hct MCV MCH MCHC RDW Plt Count MPV Neut % (Auto) Lymph % (Auto) [place] % (Auto) Eos % (Auto) Baso % (Auto) Absolute Neuts (auto) Absolute Lymphs (auto) Absolute Monos (auto) Absolute Eos (auto) Absolute Basos (auto) Absolute Nucleated RBC Nucleated RBC % APTT Sodium 130 L Potassium 4.1 Chloride 99 L Carbon Dioxide 24 Anion Gap 7 BUN 23 Creatinine 0.80 Est GFR ( Amer) 118.1 Est GFR (Non-Af Amer) 97.6 BUN/Creatinine Ratio 28.8 H Glucose 102 H POC Glucose (mg/dL) 102 H 100 Hemoglobin A1c Calcium 9.1 Total Creatine Kinase CK-MB (CK-2) Troponin I 0.32 H* 01/27/18 01/27/18 01/27/18 10:00 10:00 10:00 WBC 10.4 RBC 4.53 Hgb 13.1 L Hct 38 L MCV 84 MCH 29 MCHC 34 RDW 16 H Plt Count 248 MPV 7.7 Neut % (Auto) 84.7 H Lymph % (Auto) 6.9 L [place] % (Auto) 6.4 Eos % (Auto) 1.0 Baso % (Auto) 1.0 Absolute Neuts (auto) 8.8 H Absolute Lymphs (auto) 0.7 L Absolute Monos (auto) 0.7 Absolute Eos (auto) 0.1 Absolute Basos (auto) 0.1 Absolute Nucleated RBC 0 Nucleated RBC % 0.1 APTT 33.5 Sodium Potassium Chloride Carbon Dioxide Anion Gap BUN Creatinine Est GFR ( Amer) Est GFR (Non-Af Amer) BUN/Creatinine Ratio Glucose POC Glucose (mg/dL) Hemoglobin A1c 6.6 H Calcium Total Creatine Kinase CK-MB (CK-2) Troponin I 01/27/18 01/27/18 12:04 17:01 WBC RBC Hgb Hct MCV MCH MCHC RDW Plt Count MPV Neut % (Auto) Lymph % (Auto) [place] % (Auto) Eos % (Auto) Baso % (Auto) Absolute Neuts (auto) Absolute Lymphs (auto) Absolute Monos (auto) Absolute Eos (auto) Absolute Basos (auto) Absolute Nucleated RBC Nucleated RBC % APTT Sodium Potassium Chloride Carbon Dioxide Anion Gap BUN Creatinine Est GFR ( Amer) Est GFR (Non-Af Amer) BUN/Creatinine Ratio Glucose POC Glucose (mg/dL) 97 89 Hemoglobin A1c Calcium Total Creatine Kinase CK-MB (CK-2) Troponin I Microbiology and Other Data: Microbiology 01/26/18 18:04 Blood Venous Aerobic Blood Culture - Preliminary 01/26/18 18:04 Blood Venous Anaerobic Blood Culture - Preliminary 01/26/18 18:04 Blood Venous Blood MRSA/MSSA (PCR) - Final Mrsa Negative S.aureus Negative 01/26/18 13:45 Blood Venous Aerobic Blood Culture - Preliminary No Growth Day 1 01/26/18 13:45 Blood Venous Anaerobic Blood Culture - Preliminary No Growth Day 1 Assess/Plan/Problems-Billing Assessment: 62 yo male PMH CAD s/p stents(circ, LAD, RCA), IDDMT2, PVD s/p right BKA, HLD, current smoker p/w Inferior Q waves and ST elevations, downtrending troponins, 1 month epigastric/lower chest pain. Likely sub-acute STEMI. CT A/P with extensive hepatic lesions and infradiaphragmatic lymphadenopathy concerning for metastatic disease of unknown primary. Distal esophageal thickening. Planned EGD Mon 01/29. - Patient Problems (1) STEMI (ST elevation myocardial infarction) Current Visit: Yes Status: Acute Code(s): I21.3 - ST ELEVATION (STEMI) MYOCARDIAL INFARCTION OF [facility] SITE SNOMED Code(s): 287955154 Comment: metoprolol 50 po BID. subacute given Q waves, symptoms last month and downtrending troponins. aspirin 81mg atorvastatin 40mg initially on heparin gtt for ~6 hours overnight but they were unable to obtain monitoring aPTT so it was stopped. Discussed with Dr. Mireles and heparin gtt not clearly indicated at this time given his STEMI is likely subacute in recent weeks likely. (2) Hepatic metastases Current Visit: Yes Status: Acute Code(s): C78.7 - SECONDARY MALIG NEOPLASM OF LIVER AND INTRAHEPATIC BILE DUCT SNOMED Code(s): 34967533 Comment: suspicion for hepatic mets. (3) Esophageal thickening Current Visit: Yes Status: Acute Code(s): K22.8 - OTHER SPECIFIED DISEASES OF ESOPHAGUS SNOMED Code(s): 37229824 Comment: Appreciate GI assistance, planned EGD with biopsy on 01/29. (4) Epigastric abdominal pain Current Visit: Yes Status: Acute Code(s): R10.13 - EPIGASTRIC PAIN SNOMED Code(s): 85710471 Comment: sharp, nonradiating. Concern for esophogeal thickening on CT A/P. denies blood in BMs. (5) Diabetes Current Visit: No Status: Acute Code(s): E11.9 - TYPE 2 DIABETES MELLITUS WITHOUT COMPLICATIONS SNOMED Code(s): 20199965 Comment: SSI, has barely tolerated food last month. formerly home dose of 50UBID and metformin but he lives in [facility] has not been eating and likely not compliant with the insulin. (6) Hx of coronary artery disease Current Visit: No Status: Chronic Priority: Medium Code(s): Z86.79 - PERSONAL HISTORY OF OTHER DISEASES OF THE CIRCULATORY SYSTEM SNOMED Code(s): 232574135 Comment: metoprolol 50 po BID. aspirin 81mg atorvastatin 40mg (7) HTN (hypertension) Current Visit: No Status: Chronic Code(s): I10 - ESSENTIAL (PRIMARY) HYPERTENSION SNOMED Code(s): 26615794 Comment: AKILAH powell. Status and Disposition: medicine inpatient.
[2018-01-28 06:39] LABS: ABS Basophils 0.1 10^3/ul (0-0.2); ABS Eosinophils 0.1 10^3/ul (0-0.6); ABS Lymphocytes 0.7 10^3/ul (1.0-4.8); ABS Monocytes 0.9 10^3/ul (0-0.8); ABS Neutrophils 10.3 10^3/ul (1.5-7.7); ABS Nucleated RBC 0 10^3/ul; Eosinophil % 0.8 % (0-6); Hematocrit 37 % (42-52); Hemoglobin 12.7 g/dl (14.0-18.0); Lymphocyte % 5.6 % (25-47); Mean Corpuscular HGB Conc 34 g/dl (31-36); Mean Corpuscular Hemoglobin 29 pg (27-31); Mean Corpuscular Volume 84 fL (80-94); Mean Platelet Volume 7.9 um3 (7.4-10.4); Nucleated Red Blood Cells % 0; Platelet Count 261 10^3/ul (150-450); Red Blood Count 4.44 10^6/ul (4.00-5.40); Red Cell Distribution Width 16 % (10.5-15); White Blood Count 12.1 10^3/ul (3.5-10.8)
[2018-01-28 08:17] LABS: EGFR Non-African American 103.6 (>60)
[2018-01-28] MEDS: Insulin LISPRO* 1 UNITS UNIT SUBCUT SCH ×4 (08:45→23:44)
[2018-01-28] MEDS: Gabapentin CAP(*) 100 MG PO SCH ×2 (09:23→13:41)
[2018-01-28] MEDS: Aspirin 81 mg CHEW TAB* 81 MG TAB.CHEW PO SCH (09:24)
[2018-01-28] MEDS: Metoprolol Tartrate TAB* 50 mg PO SCH ×2 (09:24→23:44)
[2018-01-28] MEDS: Ramipril CAP* 5 MG PO SCH (09:24)
[2018-01-28] MEDS: Famotidine TAB* 20 MG PO SCH ×2 (09:24→23:43)
[2018-01-28] MEDS: Nystatin TOP POWDER* 15 GM BTL TOPICAL SCH ×3 (09:25→23:46)
--- NOTE | 2018-01-28 11:05 | PN ---
Subjective Date of Service: 01/28/18 Interval History: Pt slumped to left side in chair. Oriented to name, and hospital but not year. very lethargic 111/61, 98% RA, HR 72, no tele events overnight. BG >100. Stat CT head and labs. Reports that patient not motivated this AM. Denied chest pain. Objective Active Medications: Acetaminophen (Tylenol Tab*) 650 mg PO Q4H PRN PRN Reason: PAIN Albuterol (Ventolin Hfa Inhaler*) 2 puff INH Q6H PRN PRN Reason: SOB/WHEEZING Albuterol/Ipratropium (Duoneb (Albuterol 2.5 Mg/Ipratropium 0.5 Mg)) 1 neb INH Q6H PRN PRN Reason: SOB/WHEEZING Amitriptyline HCl (Elavil Tab*) 25 mg PO BEDTIME [facility] Last Admin: 01/27/18 22:06 Dose: 25 mg Aspirin (Aspirin 81 Mg Chew Tab*) 81 mg PO DAILY [facility] Last Admin: 01/28/18 09:24 Dose: 81 mg Atorvastatin Calcium (Lipitor*) 40 mg PO BEDTIME [facility] Last Admin: 01/27/18 22:06 Dose: 40 mg Dextrose (D50w Syringe 50 Ml*) 12.5 gm IV PUSH .FOR FS < 60 - SS PRN PRN Reason: FS < 60 Famotidine (Pepcid Tab*) 40 mg PO BID [facility] Last Admin: 01/28/18 09:24 Dose: 40 mg Gabapentin (Neurontin Cap(*)) 200 mg PO TID [facility] Last Admin: 01/28/18 09:23 Dose: 200 mg Sodium Chloride (Ns 0.9% 1000 Ml*) 1,000 mls @ 75 mls/hr IV PER RATE [facility] Last Admin: 01/27/18 16:05 Dose: 75 mls/hr Vancomycin HCl 1,750 mg/ (Sodium Chloride) 250 mls @ 166.667 mls/hr IVPB ONCE ONE Stop: 01/28/18 10:49 Insulin Human Lispro (Humalog*) 0 units SUBCUT ACHS [facility]; Protocol Last Admin: 01/28/18 08:45 Dose: Not Given Metoprolol Tartrate (Lopressor Tab*) 50 mg PO BID [facility] Last Admin: 01/28/18 09:24 Dose: 50 mg Nitroglycerin (Nitroglycerin Tab 0.4 Mg*) 0.4 mg SL Q5M PRN PRN Reason: ANGINA Last Admin: 01/27/18 11:35 Dose: 0.4 mg Nystatin (Nystatin Top Powder*) 1 applic TOPICAL TID [facility] Last Admin: 01/28/18 09:25 Dose: 1 applic Ondansetron HCl (Zofran Inj*) 4 mg IV Q6H PRN PRN Reason: NAUSEA Last Admin: 01/27/18 22:47 Dose: 4 mg Ramipril (Altace Cap*) 5 mg PO BID [facility] Last Admin: 01/28/18 09:24 Dose: 5 mg Vital Signs - 8 hr 01/28/18 01/28/18 01/28/18 04:42 07:36 07:53 Temperature 98.3 F 98.0 F Pulse Rate 79 75 Respiratory 20 16 20 Rate Blood Pressure 104/73 98/55 (mmHg) O2 Sat by Pulse 97 100 Oximetry 01/28/18 09:23 Temperature Pulse Rate Respiratory 17 Rate Blood Pressure (mmHg) O2 Sat by Pulse Oximetry Oxygen Devices in Use Now: None Appearance: slumped in chair to left. Eyes: No Scleral Icterus, PERRLA Respiratory: Symmetrical Chest Expansion and Respiratory Effort, Clear to Auscultation Cardiovascular: NL Sounds; No Murmurs; No JVD, RRR Abdominal: NL Sounds; No Tenderness; No Distention, No Hepatosplenomegaly Extremities: No Edema, - - s/p right BKA Skin: No Rash or Ulcers Neurological: - - oriented to name, hospital but not year. lethargic, intermittently able to help sit himself up but globally very weak. Seems more neglectful to right and weaker on left. no clear facial droop. Nutrition: Taking PO's Result Diagrams: 01/28/18 15:44 01/28/18 15:44 Additional Lab and Data: Laboratory Results - last 24 hr 01/27/18 01/27/18 01/27/18 10:00 10:00 10:00 WBC RBC Hgb Hct MCV MCH MCHC RDW Plt Count MPV Neut % (Auto) Lymph % (Auto) [place] % (Auto) Eos % (Auto) Baso % (Auto) Absolute Neuts (auto) Absolute Lymphs (auto) Absolute Monos (auto) Absolute Eos (auto) Absolute Basos (auto) Absolute Nucleated RBC Nucleated RBC % Sodium 130 L Potassium 4.1 Chloride 99 L Carbon Dioxide 24 Anion Gap 7 BUN 23 Creatinine 0.80 Est GFR ( Amer) 118.1 Est GFR (Non-Af Amer) 97.6 BUN/Creatinine Ratio 28.8 H Glucose 102 H POC Glucose (mg/dL) Hemoglobin A1c 6.6 H Calcium 9.1 Troponin I 0.32 H* Procalcitonin 0.5 01/27/18 01/27/18 01/27/18 12:04 17:01 20:55 WBC RBC Hgb Hct MCV MCH MCHC RDW Plt Count MPV Neut % (Auto) Lymph % (Auto) [place] % (Auto) Eos % (Auto) Baso % (Auto) Absolute Neuts (auto) Absolute Lymphs (auto) Absolute Monos (auto) Absolute Eos (auto) Absolute Basos (auto) Absolute Nucleated RBC Nucleated RBC % Sodium Potassium Chloride Carbon Dioxide Anion Gap BUN Creatinine Est GFR ( Amer) Est GFR (Non-Af Amer) BUN/Creatinine Ratio Glucose POC Glucose (mg/dL) 97 89 77 Hemoglobin A1c Calcium Troponin I Procalcitonin 01/27/18 01/28/18 01/28/18 22:37 04:58 06:20 WBC 12.1 H RBC 4.44 Hgb 12.7 L Hct 37 L MCV 84 MCH 29 MCHC 34 RDW 16 H Plt Count 261 MPV 7.9 Neut % (Auto) 85.2 H Lymph % (Auto) 5.6 L [place] % (Auto) 7.4 H Eos % (Auto) 0.8 Baso % (Auto) 1.0 Absolute Neuts (auto) 10.3 H Absolute Lymphs (auto) 0.7 L Absolute Monos (auto) 0.9 H Absolute Eos (auto) 0.1 Absolute Basos (auto) 0.1 Absolute Nucleated RBC 0 Nucleated RBC % 0 Sodium Potassium Chloride Carbon Dioxide Anion Gap BUN 21 Creatinine 0.76 Est GFR ( Amer) 125.3 Est GFR (Non-Af Amer) 103.6 BUN/Creatinine Ratio Glucose POC Glucose (mg/dL) 109 H Hemoglobin A1c Calcium Troponin I Procalcitonin 01/28/18 07:33 WBC RBC Hgb Hct MCV MCH MCHC RDW Plt Count MPV Neut % (Auto) Lymph % (Auto) [place] % (Auto) Eos % (Auto) Baso % (Auto) Absolute Neuts (auto) Absolute Lymphs (auto) Absolute Monos (auto) Absolute Eos (auto) Absolute Basos (auto) Absolute Nucleated RBC Nucleated RBC % Sodium Potassium Chloride Carbon Dioxide Anion Gap BUN Creatinine Est GFR ( Amer) Est GFR (Non-Af Amer) BUN/Creatinine Ratio Glucose POC Glucose (mg/dL) 110 H Hemoglobin A1c Calcium Troponin I Procalcitonin Microbiology and Other Data: Microbiology 01/26/18 18:04 Blood Venous Aerobic Blood Culture - Preliminary Staphylococcus Hominis 01/26/18 18:04 Blood Venous Anaerobic Blood Culture - Preliminary Staphylococcus Hominis 01/26/18 18:04 Blood Venous Blood MRSA/MSSA (PCR) - Final Mrsa Negative S.aureus Negative 01/26/18 13:45 Blood Venous Aerobic Blood Culture - Preliminary No Growth Day 1 01/26/18 13:45 Blood Venous Anaerobic Blood Culture - Preliminary No Growth Day 1 Assess/Plan/Problems-Billing Assessment: 62 yo male PMH CAD s/p stents(circ, LAD, RCA), IDDMT2, PVD s/p right BKA, HLD, current smoker p/w Inferior Q waves and ST elevations, downtrending troponins, 1 month epigastric/lower chest pain. Likely sub-acute inferior infarction. EF 40 -45% with wma. CT A/P with extensive hepatic lesions and infradiaphragmatic lymphadenopathy concerning for metastatic disease of unknown primary. Distal esophageal thickening. Planned EGD Mon 01/29. Lethargic this AM, pending CTH. - Patient Problems (1) Lethargy Current Visit: Yes Status: Acute Code(s): R53.83 - OTHER FATIGUE SNOMED Code(s): 891817742 Comment: not clear if globally weak/lethargic. Initially seemd more neglectful on right and weaker on left but not clearly following commands consistently. stat CT Head CBC, CMP, Lactic Acid, Ammonia, ABG, BG okay MRI Brain with contrast later today (2) STEMI (ST elevation myocardial infarction) Current Visit: Yes Status: Acute Code(s): I21.3 - ST ELEVATION (STEMI) MYOCARDIAL INFARCTION OF [facility] SITE SNOMED Code(s): 066882430 Comment: metoprolol 50 po BID. subacute inferior infarction. Q waves. symptoms last month and downtrending troponins. aspirin 81mg atorvastatin 40mg initially on heparin gtt for ~6 hours on admission but they were unable to obtain monitoring aPTT so it was stopped. Discussed with Dr. Mireles and heparin gtt not clearly indicated at this time given his STEMI is likely subacute in recent weeks likely. (3) Hepatic metastases Current Visit: Yes Status: Acute Code(s): C78.7 - SECONDARY MALIG NEOPLASM OF LIVER AND INTRAHEPATIC BILE DUCT SNOMED Code(s): 22750583 Comment: suspicion for hepatic mets. getting MRI Brain given worsening lethargy. (4) Esophageal thickening Current Visit: Yes Status: Acute Code(s): K22.8 - OTHER SPECIFIED DISEASES OF ESOPHAGUS SNOMED Code(s): 25761364 Comment: Appreciate GI assistance, planned EGD with biopsy on 01/29. (5) Epigastric abdominal pain Current Visit: Yes Status: Acute Code(s): R10.13 - EPIGASTRIC PAIN SNOMED Code(s): 93966718 Comment: sharp, nonradiating(resolved). Concern for esophogeal thickening on CT A/P. denies blood in BMs. (6) Diabetes Current Visit: No Status: Acute Code(s): E11.9 - TYPE 2 DIABETES MELLITUS WITHOUT COMPLICATIONS SNOMED Code(s): 49614796 Comment: SSI, has barely tolerated food last month. formerly home dose of 50UBID and metformin but he lives in [facility] has not been eating and likely not compliant with the insulin. (7) Hx of coronary artery disease Current Visit: No Status: Chronic Priority: Medium Code(s): Z86.79 - PERSONAL HISTORY OF OTHER DISEASES OF THE CIRCULATORY SYSTEM SNOMED Code(s): 788507849 Comment: metoprolol 50 po BID. aspirin 81mg atorvastatin 40mg (8) HTN (hypertension) Current Visit: No Status: Chronic Code(s): I10 - ESSENTIAL (PRIMARY) HYPERTENSION SNOMED Code(s): 66202888 Comment: AKILAH powell. Status and Disposition: medicine inpatient.
[2018-01-28] MEDS ORDERED: Vancomycin(*) 1,750 MG in NS 0.9% 250 ML* 250 ML IVPB ONE (12:00)
[2018-01-28] MEDS ORDERED: Vancomycin(*) 1,750 MG in NS 0.9% 500 ML* 500 ML IVPB ONE (12:00)
[2018-01-28] MEDS: NS 0.9% 1000 ML* 1,000 ML IV SCH (12:07)
[2018-01-28 12:10] LABS: EGFR Non-African American 94.9 (>60)
--- NOTE | 2018-01-28 12:15 | RAD ---
HISTORY: weakness, neglect, suspicion for metastatic cancer COMPARISONS: Head CT dated June 13, 2010 TECHNIQUE: Multiple contiguous axial CT scans were obtained of the head without intravenous contrast. FINDINGS: HEMORRHAGE/INFARCT: There is no hemorrhage or acute infarct. MASSES/SHIFT: There is no mass or shift. EXTRA-AXIAL SPACES: There are no extra-axial fluid collections. SULCI AND VENTRICLES: The sulci and ventricles are normal in size and position for the patient's stated age. CEREBRUM: There is hypoattenuation of the periventricular and subcortical white matter. BRAINSTEM: There are no focal parenchymal abnormalities. CEREBELLUM: There are no focal parenchymal abnormalities. VESSELS: The vessels are grossly normal. PARANASAL SINUSES: The paranasal sinuses are clear. ORBITS: The orbits are unremarkable. BONES AND SOFT TISSUE: No bone or soft tissue abnormalities are noted. OTHER: None IMPRESSION: 1. NO ACUTE INTRACRANIAL PATHOLOGY. 2. NO VASOGENIC EDEMA EDEMA OR SPACE-OCCUPYING LESION TO SUGGEST METASTATIC DISEASE TO THE BRAIN..
[2018-01-28] MEDS ORDERED: Vancomycin per Pharmacy* NOTE FOLLOW UP SCH (13:00)
[2018-01-28] MEDS ORDERED: Vancomycin(*) 1,500 MG in NS 0.9% 500 ML* 500 ML IVPB ONE (13:00)
--- NOTE | 2018-01-28 13:26 | RAD ---
HISTORY: hypoxemia, potential metastatic dz COMPARISONS: July 17, 2015 VIEWS: 1: frontal portable view of the chest at 12:55 PM. The patient is obliqued to the left. FINDINGS: LINES AND TUBES: None. CARDIOMEDIASTINAL SILHOUETTE: The cardiomediastinal silhouette is normal for portable technique. PLEURA: The costophrenic angles are sharp. No pleural abnormalities are noted. LUNG PARENCHYMA: The lungs are clear. ABDOMEN: The upper abdomen is clear. There is no subphrenic gas. BONES AND SOFT TISSUES: No bone or soft tissue abnormalities are noted. IMPRESSION: NO ACTIVE CARDIOPULMONARY DISEASE.
[2018-01-28] MEDS: Heparin VIAL(*) 5000 UNITS/ML VIAL (FIVE THOUSAND) SUBCUT SCH ×2 (13:41→23:46)
--- NOTE | 2018-01-28 15:14 | CONS ---
CONSULTATION REPORT: ADDENDUM: I discussed with Dr. Kimbrough that he is hypoxic to 66 and that this may be contributing to his confusion and he is in the process working up his hypoxemia. Also, it is possible that there may be an element of paraneoplastic syndrome here but some of his symptoms are more acute than you would expect from that depending on how his workup goes, this may need to be evaluated for as well. [id number]/[facility] #: [id number] [facility]
[2018-01-28 15:54] LABS: ABS Basophils 0 10^3/ul (0-0.2); ABS Eosinophils 0.1 10^3/ul (0-0.6); ABS Lymphocytes 0.6 10^3/ul (1.0-4.8); ABS Monocytes 0.8 10^3/ul (0-0.8); ABS Nucleated RBC 0 10^3/ul; Eosinophil % 0.7 % (0-6); Hematocrit 37 % (42-52); Hemoglobin 12.3 g/dl (14.0-18.0); Lymphocyte % 4.9 % (25-47); Mean Corpuscular HGB Conc 34 g/dl (31-36); Mean Corpuscular Hemoglobin 28 pg (27-31); Mean Corpuscular Volume 84 fL (80-94); Mean Platelet Volume 7.7 um3 (7.4-10.4); Nucleated Red Blood Cells % 0; Platelet Count 251 10^3/ul (150-450); Red Blood Count 4.35 10^6/ul (4.00-5.40); Red Cell Distribution Width 16 % (10.5-15); White Blood Count 12.5 10^3/ul (3.5-10.8)
[2018-01-28 16:10] LABS: INR 1.25 (0.77-1.02)
[2018-01-28 16:12] LABS: Uric Acid 9.7 mg/dL (4.4-7.6)
[2018-01-28] MEDS ORDERED: NS 0.9% 1000 ML* 1,000 ML IV SCH (16:31)
--- NOTE | 2018-01-28 16:44 | CONS ---
ADDENDUM NOW INCLUDED ON THIS REPORT CONSULTATION REPORT: DATE OF CONSULT: 01/28/18 PATIENT OF: Dr. Kimbrough. HISTORY OF PRESENT ILLNESS: A 62-year-old man, I am asked to evaluate for change in mental status. He came in the night of 01/26/18 with abdominal pain and difficulty keeping things down. I have spoken to his daughter, who was just here today. I spoke to the nurse, who saw him yesterday and said that yesterday he was mildly confused, sedated and apathetic, but today his confusion was worse. It was worse even this morning and it is this afternoon where he was significantly lethargic. He is more alert and interactive, but remains confused. This afternoon, he is unable to give the significant history , but he presented to the ER with a massive abdominal pain, difficulty keeping food down, which is intermittent and he has lost perhaps up to a 100 pounds. PAST MEDICAL HISTORY: Significant for coronary artery disease, hypertension, type 2 diabetes, peripheral vascular disease, hyperlipidemia. He is status post cholecystectomy, right BKA, left toe amputation, back surgery. MEDICATIONS: On admission include: 1. Ramipril 5 mg p.o. b.i.d. 2. Metformin 1000 mg b.i.d. 3. Metoprolol 50 b.i.d. 4. Lispro 40 units subcu t.i.d. with meals. 5. Lantus 50 units subcu b.i.d. 6. Combivent 2 puffs inhaler q.6 hours. 7. Gabapentin 200 t.i.d. 8. Famotidine 40 mg b.i.d. 9. Lipitor 20 mg daily. 10. Amlodipine 5 mg b.i.d. 11. Aspirin 325 daily. 12. Amitriptyline 25 mg at night. ALLERGIES: He has no known drug allergies. FAMILY HISTORY: His mom at age 70, his dad at age 81 possibly of pancreatic cancer. SOCIAL HISTORY: He does not drink or use drugs. He smokes quarter pack a day but he smoked since age 15. REVIEW OF SYSTEMS: I was unable to get a review of systems mainly because he was confused. PHYSICAL EXAM: On exam, temperature 98.7, pulse 71, respirations 19, blood pressure 111/61. He was alert. He did not know his name, date, his age or where he was. He could speak and would mumble. He noted that he had some low back pain and he would tend to perseverate. He would follow one and occasionally two-step commands with perseveration. Cranial nerves II through XII were intact. I could not see his discs. He was not cooperative with funduscopic exam. He seemed to have left-sided neglect, but this was hard to be sure of because of his mental status, but he seems to pay better attention to things in his right visual field than his left, but his responses were inconsistent. He moves all extremities with power. He has a right BKA. He was not fully cooperative with pronator drift, but he did not seem to have a major pronator drift or any pronator drift, it is hard to say because he closes eyes quickly. He was uncooperative with sensory exam. Reflexes were trace to 1. His left big toe was amputated. He had a BKA on the right. Chest: Clear. Cardiovascular: Regular rate and rhythm. Abdomen: Soft. He has a STEMI and is on metoprolol and is given aspirin, atorvastatin, that is thought to be subacute. He has hepatic metastasis with unknown primary. He has esophageal thickening. DIAGNOSTIC STUDIES/LAB DATA: His CT scan is reviewed and did not show any acute findings. Labs include a white count of 12.1, hematocrit of 37, platelets 261, normal INR. Blood gas, pH of 7.39, PCO2 of 38, PO2 of 66. Sodium of 128, chloride of 100, bicarb of 21, ALT of 20, C-reactive protein of 69. Ammonia was not done because of hemolysis. ASSESSMENT AND PLAN: Ciaran has had since yesterday worsening of his mental status with perhaps some focality of left-sided neglect but it is hard to say for sure. He will be getting an MRI scan with and without contrast which makes sense in the setting of somebody who has metastatic cancer with an unknown primary. He also needs an ammonia level done and I would do that as a repeat. He could have hepatic encephalopathy causing some of his problems. This does not seem to be infectious. His white count is not elevated. He had been afebrile and he has possible other explanations for his altered mental status.. Thank you for sharing his case. ADDENDUM: I discussed with Dr. Kimbrough that he is hypoxic to 66 and that this may be contributing to his confusion and he is in the process working up his hypoxemia. Also, it is possible that there may be an element of paraneoplastic syndrome here but some of his symptoms are more acute than you would expect from that depending on how his workup goes, this may need to be evaluated for as well. [id number] #: [id number]/[id number] #: [id number] OTIS
[2018-01-28] MEDS ORDERED: Rasburicase 1.5 MG VIAL(NF) IVPB SCH (17:00)
[2018-01-28] MEDS ORDERED: Lactulose* 15 ML UDC PO SCH (17:00)
[2018-01-28] MEDS ORDERED: Rasburicase 1.5 MG VIAL(NF) IVPB ONE (18:00)
[2018-01-28] MEDS ORDERED: RASBURICASE IVPB ONE (18:30)
[2018-01-28] MEDS ORDERED: NS 0.9% IVPB ONE (18:30)
[2018-01-28] MEDS ORDERED: Vancomycin(*) 1,000 MG in NS 0.9% 250 ML* 250 ML IVPB SCH (20:00)
--- NOTE | 2018-01-28 23:06 | PN ---
Hospitalist Progress Note Date of Service: 01/28/18 CTH without acute CVA ammonia level has risen to 73. lactulose started. INR elevated to 1.25 likely 2/ 2 liver mets uric acid elevated to 9.7. Calcium level has dropped, though with hydration. some concern for risk of Tumor Lysis syndrome though less likely in absence of cyto toxic therapies. one small dose(3mg) of rasburicase, G6PD in AM (though predominately Lithuanian/[place]ian/[place] ancestry), pharmacy actually only has 9mg total in house. ABG with hypoxemic PaO2 66. DDimer slightly elevated and certainly at risk for clots. No hypoxia however, on RA, not tachy. consider v/q scan or CTA chest but will proceed with MRI Brain first which has already been delayed by prior CT a/ p Iv contrast time restrictions(coupled with availability of technical communicator on a Monday) Long conversations with son Ciaran and Daughter Julianna and daughter in law Komal. need to get UA and bladder scan if not voiding. Neuro checks q4. titrate lactulose for BMs mental status waxed and waned on multiple re-evaluations. Often would wake to loud shouts but not for sustained periods. No clear persistent focality of weakness. blood draws have remained challenging, midline ordered yesterday but no vascular access available over the weekend. DNR/DNI with guarded prognosis Ciaran trying to become primary pattern repair person instead of Niece. Esteban, son who resides with patient is himself mentally impaired.
[2018-01-28] MEDS: Atorvastatin* 40 MG TAB PO SCH (23:44)
[2018-01-28] MEDS: Lactulose* 15 ML UDC PO SCH (23:46)
[2018-01-29 05:45] LABS: ABS Basophils 0.1 10^3/ul (0-0.2); ABS Eosinophils 0 10^3/ul (0-0.6); ABS Lymphocytes 0.4 10^3/ul (1.0-4.8); ABS Monocytes 0.9 10^3/ul (0-0.8); ABS Neutrophils 9.4 10^3/ul (1.5-7.7); ABS Nucleated RBC 0 10^3/ul; Eosinophil % 0.2 % (0-6); Hematocrit 34 % (42-52); Lymphocyte % 3.6 % (25-47); Mean Corpuscular HGB Conc 35 g/dl (31-36); Mean Corpuscular Hemoglobin 29 pg (27-31); Mean Corpuscular Volume 83 fL (80-94); Mean Platelet Volume 7.6 um3 (7.4-10.4); Nucleated Red Blood Cells % 0; Platelet Count 181 10^3/ul (150-450); Red Blood Count 4.12 10^6/ul (4.00-5.40); Red Cell Distribution Width 16 % (10.5-15); White Blood Count 10.8 10^3/ul (3.5-10.8)
[2018-01-29] MEDS: Heparin VIAL(*) 5000 UNITS/ML VIAL (FIVE THOUSAND) SUBCUT SCH ×3 (05:48→22:13)
[2018-01-29 06:03] LABS: EGFR Non-African American 110.3 (>60); Uric Acid 5.5 mg/dL (4.4-7.6)
[2018-01-29] MEDS: Insulin LISPRO* 1 UNITS UNIT SUBCUT SCH ×4 (08:06→22:21)
[2018-01-29] MEDS ORDERED: Gadoteridol* (CONTRAST) 279.3 MG/ML 10 ML IV ONE (09:26)
[2018-01-29] MEDS: Famotidine TAB* 20 MG PO SCH ×2 (09:52→22:13)
[2018-01-29] MEDS: Acetaminophen TAB* 325 MG PO PRN (09:52)
[2018-01-29] MEDS: Metoprolol Tartrate TAB* 50 mg PO SCH ×3 (09:52→22:13)
[2018-01-29] MEDS: Lactulose* 15 ML UDC PO SCH ×3 (09:52→22:13)
[2018-01-29] MEDS: Aspirin 81 mg CHEW TAB* 81 MG TAB.CHEW PO SCH (09:52)
[2018-01-29] MEDS: Vancomycin(*) 1,000 MG in NS 0.9% 250 ML* 250 ML IVPB SCH ×2 (09:52→18:22)
[2018-01-29] MEDS: Nystatin TOP POWDER* 15 GM BTL TOPICAL SCH ×3 (09:53→22:19)
[2018-01-29] MEDS ORDERED: Gadoteridol* (CONTRAST) 279.3 MG/ML 10 ML IV SCH (10:00)
--- NOTE | 2018-01-29 10:01 | RAD ---
HISTORY: rule out brain mets COMPARISONS: Head CT dated January 28, 2018 TECHNIQUE: The following sequences were obtained of the head: Sagittal T1-weighted images, axial T2-weighted images, axial FLAIR images, axial susceptibility weighted images, axial T1-weighted images, thin section sagittal T2-weighted images and sagittal and coronal T1-weighted images were obtained through the sella. Additionally, axial diffusion-weighted images were obtained with calculated apparent diffusion coefficients. Additionally, axial T1-weighted images were obtained through the brain after contrast enhancement with a gadolinium-based intravenous contrast agent. Thin section coronal and sagittal T1-weighted images were obtained through the sella, with coronal dynamic enhanced scans through the sella. FINDINGS: HEMORRHAGE/INFARCT: There is no hemorrhage or acute infarct. MASSES/SHIFT: There is no mass or shift. EXTRA-AXIAL SPACES/MENINGES: There are no extra-axial fluid collections. SULCI AND VENTRICLES: The sulci and ventricles are normal in size and position for the patient's stated age. CEREBRUM: There is elevated T2/FLAIR signal within the periventricular white matter without enhancement. BRAINSTEM: There is elevated T2/FLAIR signal within the pontine white matter, without enhancement. CEREBELLUM: There are no focal parenchymal abnormalities. The cerebellar tonsils are normal in size and position. SELLA: The sella is normal. PINEAL: The pineal region is clear. CP ANGLE/TEMPORAL BONES: The labyrinthine structures are grossly normal. VESSELS: Normal flow-voids are noted within the visualized vertebral vasculature. DIFFUSION ABNORMALITIES: There are no diffusion abnormalities. PARANASAL SINUSES/MASTOIDS: The paranasal sinuses are clear. There are small bilateral mastoid effusions. ORBITS: The orbits are unremarkable. BONES AND SOFT TISSUE: No bone or soft tissue abnormalities are noted. OTHER: There is no abnormal enhancement. IMPRESSION: 1. ELEVATED T2/FLAIR SIGNAL WITHIN THE PERIVENTRICULAR, SUBCORTICAL, AND PONTINE WHITE MATTER, NONSPECIFIC BUT SUGGESTIVE OF CHRONIC SMALL VESSEL ISCHEMIC CHANGE. 2. SMALL BILATERAL MASTOID EFFUSIONS. 3. NO ABNORMAL ENHANCEMENT, VASOGENIC EDEMA, OR SPACE-OCCUPYING LESION TO SUGGEST METASTATIC DISEASE TO THE BRAIN.
[2018-01-29 11:10] LABS: Urine Appearance Clear; Urine Blood 1+ (Negative); Urine Color Amber; Urine Ketones Negative (Negative); Urine Protein 1+(30 mg/dL) (Negative); Urine Red Blood Cell 2+(6-10/hpf) (Absent); Urine Specific Gravity 1.014 (1.010-1.030); Urine Urobilinogen Positive (Negative); Urine White Blood Cell Trace(0-5/hpf) (Absent)
[2018-01-29] MEDS ORDERED: Midazolam* 1 MG/ML 10 ML VIAL (10 MG) ONE (16:09)
[2018-01-29] MEDS ORDERED: fentaNYL* 50 MCG/ML 2 ML VIAL (100 MCG VIAL) ONE (16:09)
[2018-01-29] MEDS ORDERED: Vancomycin Trough Check NOTE FOLLOW UP ONE (18:00)
--- NOTE | 2018-01-29 18:26 | PN ---
Subjective Date of Service: 01/29/18 Interval History: Patient seen and examined. Daughter at bedside. Patient seems more alert, and recognized daughter today. Only complaint is some tingling in his fingers and RUQ pain/pressure. Denies N/V, no fever or chills. Objective Active Medications: Acetaminophen (Tylenol Tab*) 650 mg PO Q4H PRN PRN Reason: PAIN Last Admin: 01/29/18 09:52 Dose: 650 mg Albuterol (Ventolin Hfa Inhaler*) 2 puff INH Q6H PRN PRN Reason: SOB/WHEEZING Albuterol/Ipratropium (Duoneb (Albuterol 2.5 Mg/Ipratropium 0.5 Mg)) 1 neb INH Q6H PRN PRN Reason: SOB/WHEEZING Aspirin (Aspirin 81 Mg Chew Tab*) 81 mg PO DAILY [facility] Last Admin: 01/29/18 09:52 Dose: 81 mg Atorvastatin Calcium (Lipitor*) 40 mg PO BEDTIME [facility] Last Admin: 01/28/18 23:44 Dose: 40 mg Dextrose (D50w Syringe 50 Ml*) 12.5 gm IV PUSH .FOR FS < 60 - SS PRN PRN Reason: FS < 60 Famotidine (Pepcid Tab*) 40 mg PO BID [facility] Last Admin: 01/29/18 09:52 Dose: 40 mg Gadoteridol (Prohance* (Contrast)) 16 ml IV ONCE [facility] Stop: 01/31/18 09:25 Heparin Sodium (Porcine) (Heparin Vial(*)) 5,000 units SUBCUT Q8HR [facility] Last Admin: 01/29/18 14:02 Dose: 5,000 units Vancomycin HCl 1,000 mg/ (Sodium Chloride) 250 mls @ 166.667 mls/hr IVPB Q8H [facility] Last Admin: 01/29/18 09:52 Dose: 166.667 mls/hr Insulin Human Lispro (Humalog*) 0 units SUBCUT ACHS [facility]; Protocol Last Admin: 01/29/18 18:00 Dose: Not Given Lactulose (Lactulose*) 30 ml PO TID [facility] Last Admin: 01/29/18 14:07 Dose: Not Given Metoprolol Tartrate (Lopressor Tab*) 50 mg PO TID [facility] Last Admin: 01/29/18 14:07 Dose: Not Given Nitroglycerin (Nitroglycerin Tab 0.4 Mg*) 0.4 mg SL Q5M PRN PRN Reason: ANGINA Last Admin: 01/27/18 11:35 Dose: 0.4 mg Nystatin (Nystatin Top Powder*) 1 applic TOPICAL TID [facility] Last Admin: 01/29/18 14:03 Dose: 1 applic Ondansetron HCl (Zofran Inj*) 4 mg IV Q6H PRN PRN Reason: NAUSEA Last Admin: 01/27/18 22:47 Dose: 4 mg Pharmacy Consult (Vancomycin Per Pharmacy*) 1 note FOLLOW UP .VANC PER PHARMACY [facility] Vital Signs - 8 hr 01/29/18 01/29/18 11:22 18:02 Temperature 97.8 F 97.8 F Pulse Rate 76 77 Respiratory 22 20 Rate Blood Pressure 106/55 115/47 (mmHg) O2 Sat by Pulse 94 97 Oximetry Oxygen Devices in Use Now: None Eyes: No Scleral Icterus, PERRLA Ears/Nose/Mouth/Throat: Mucous Membranes Moist Neck: NL Appearance and Movements; NL JVP, Trachea Midline Respiratory: Symmetrical Chest Expansion and Respiratory Effort, - - diminished bases Abdominal: - - pain RUQ Extremities: No Edema Skin: No Rash or Ulcers Neurological: - - A&Ox2 Nutrition: - - NPO for endo/biopsy Result Diagrams: 01/29/18 05:37 01/29/18 05:37 Additional Lab and Data: Laboratory Results - last 24 hr 01/27/18 01/27/18 01/27/18 10:00 10:00 10:00 WBC RBC Hgb Hct MCV MCH MCHC RDW Plt Count MPV Neut % (Auto) Lymph % (Auto) Sandoval % (Auto) Eos % (Auto) Baso % (Auto) Absolute Neuts (auto) Absolute Lymphs (auto) Absolute Monos (auto) Absolute Eos (auto) Absolute Basos (auto) Absolute Nucleated RBC Nucleated RBC % Sodium 130 L Potassium 4.1 Chloride 99 L Carbon Dioxide 24 Anion Gap 7 BUN 23 Creatinine 0.80 Est GFR ( Amer) 118.1 Est GFR (Non-Af Amer) 97.6 BUN/Creatinine Ratio 28.8 H Glucose 102 H POC Glucose (mg/dL) Hemoglobin A1c 6.6 H Calcium 9.1 Troponin I 0.32 H* Procalcitonin 0.5 01/27/18 01/27/1801/27/18 12:04 17:01 20:55 WBC RBC Hgb Hct MCV MCH MCHC RDW Plt Count MPV Neut % (Auto) Lymph % (Auto) Sandoval % (Auto) Eos % (Auto) Baso % (Auto) Absolute Neuts (auto) Absolute Lymphs (auto) Absolute Monos (auto) Absolute Eos (auto) Absolute Basos (auto) Absolute Nucleated RBC Nucleated RBC % Sodium Potassium Chloride Carbon Dioxide Anion Gap BUN Creatinine Est GFR ( Amer) Est GFR (Non-Af Amer) BUN/Creatinine Ratio Glucose POC Glucose (mg/dL) 97 89 77 Hemoglobin A1c Calcium Troponin I Procalcitonin 01/27/18 01/28/18 01/28/18 22:37 04:58 06:20 WBC 12.1 H RBC 4.44 Hgb 12.7 L Hct 37 L MCV 84 MCH 29 MCHC 34 RDW 16 H Plt Count 261 MPV 7.9 Neut % (Auto) 85.2 H Lymph % (Auto) 5.6 L Sandoval % (Auto) 7.4 H Eos % (Auto) 0.8 Baso % (Auto) 1.0 Absolute Neuts (auto) 10.3 H Absolute Lymphs (auto) 0.7 L Absolute Monos (auto) 0.9 H Absolute Eos (auto) 0.1 Absolute Basos (auto) 0.1 Absolute Nucleated RBC 0 Nucleated RBC % 0 Sodium Potassium Chloride Carbon Dioxide Anion Gap BUN 21 Creatinine 0.76 Est GFR ( Amer) 125.3 Est GFR (Non-Af Amer) 103.6 BUN/Creatinine Ratio Glucose POC Glucose (mg/dL) 109 H Hemoglobin A1c Calcium Troponin I Procalcitonin 01/28/18 07:33 WBC RBC Hgb Hct MCV MCH MCHC RDW Plt Count MPV Neut % (Auto) Lymph % (Auto) Sandoval % (Auto) Eos % (Auto) Baso % (Auto) Absolute Neuts (auto) Absolute Lymphs (auto) Absolute Monos (auto) Absolute Eos (auto) Absolute Basos (auto) Absolute Nucleated RBC Nucleated RBC % Sodium Potassium Chloride Carbon Dioxide Anion Gap BUN Creatinine Est GFR ( Amer) Est GFR (Non-Af Amer) BUN/Creatinine Ratio Glucose POC Glucose (mg/dL) 110 H Hemoglobin A1c Calcium Troponin I Procalcitonin Microbiology and Other Data: Microbiology 01/26/18 18:04 Blood Venous Aerobic Blood Culture - Preliminary Staphylococcus Hominis 01/26/18 18:04 Blood Venous Anaerobic Blood Culture - Preliminary Staphylococcus Hominis 01/26/18 18:04 Blood Venous Blood MRSA/MSSA (PCR) - Final Mrsa Negative S.aureus Negative 01/26/18 13:45 Blood Venous Aerobic Blood Culture - Preliminary No Growth Day 1 01/26/18 13:45 Blood Venous Anaerobic Blood Culture - Preliminary No Growth Day 1 Diagnostic Imaging: CT ABDOMEN AND PELVIS Patient Name: JARVIS ALEMAN SR Medical Record#: [id number] Ordering Physician: Colin Alcala MD Acct.#: [id number] : 1955 Age: 62 Sex: M Location: EMERGENCY DEPARTMENT Exam Date: 01/26/181558 ADM Status: REG ER Order Information: CT ABD/PEL W Accession Number: [id number] CPT: 21857 INDICATION: Abdominal pain COMPARISON: CT aortogram and runoff July 20, 2015 TECHNIQUE: Axial source images were obtained from the hemidiaphragms to the symphysis pubis following administration of oral and intravenous contrast. 100 mL Visipaque 320 was utilized. Coronal and sagittal reconstructed images were acquired. There is suboptimal contrast opacification due to difficulties with the IV. Lung bases: The lung bases are clear. There is prior cardiothoracic surgery and/ or stenting Liver: There is cirrhotic liver morphology. There are numerous hepatic lesions consistent with diffuse hepatic metastasis. These involve both right and left hepatic lobes. Similar lesions are confluent. The largest lesions measure approximately 4 cm Gallbladder: Cholecystectomy. Spleen: The spleen is mildly enlarged measuring 14 cm in diagonal dimension. There are no masses. Pancreas: No definitive focal pancreatic findings or ductal dilatation. There is extensive adjacent adenopathy is noted below. Adrenal glands: There is no evidence of adrenal mass. Kidneys: The kidneys are normal in size and position. There are prompt nephrograms and there is prompt excretion bilaterally. There is a 5 cm left renal cyst. There is also a left-sided parapelvic cyst There is no evidence of nephrolithiasis. Adenopathy: There is extensive adenopathy. There are multiple enlarged lymph nodes at the diaphragmatic hiatus. There is a confluent periportal mass measuring approximately 6 cm in greatest transverse dimension and there are multiple additional smaller peripancreatic and retroperitoneal lymph nodes extending to near the bifurcation. Fluid collections: There is a small amount of ascites and a right-sided diaphragmatic location anteriorly. Vessels:There are atherosclerotic changes involving the aorta and iliac vessels. There is no focal aneurysm. The IVC appears normal. GI tract: There are no acute CT bowel findings. There is no obstruction. There is circumferential mural thickening of the distal esophagus worrisome for esophageal neoplasia. There are no specific abnormalities the lower GI tract. Pelvic organs: The prostate and seminal vesicles appear normal Bladder: There are no bladder masses. Abdominal and pelvic soft tissues: The extraperitoneal abdominal and pelvic soft tissues appear normal.. This report is only to be considered final once signed by the Provider(s) as displayed in the "<Electronically Signed by >" field (s). Absence of a signature indicates the report is in a draft status and still needs to be finalized. In the event this document was created by someone other than the signing Provider, the individual initiating the document will be listed in the "Entered by:" or "Dictated by:" tavarez. 1 of 2 Osseous structures: There are advanced osteoarthritic changes of thoracolumbar spine. There is grade 2 anterolisthesis of L5-S1 with evidence of prior surgical fusion at L4-S1. Other: None IMPRESSION: 1. Cirrhotic liver morphology with extensive hepatic lesions consistent with diffuse hepatic metastasis. 2. Extensive infradiaphragmatic adenopathy as described. 3. Mild circumferential thickening of the distal esophagus suggests the possibility of esophageal neoplasia. 4. Mild splenomegaly. 5. Small amount of ascites. <Electronically signed by Raymundo Womack MD in [place]> 01/26/181936 Dictated By: Raymundo Womack MD Dictated Date/Time: 01/26/181936 Transcribed Date/Time: 01/26/181912 Copy to: Patient Name: JARVIS ALEMAN SR Medical Record#: [id number] Ordering Physician: Jorge Kimbrough MD Acct.#: [id number] : 1955 Age: 62 Sex: M Location: [address] [place] [address]/TELEMETRY Exam Date: 01/29/18 1300 ADM Status: ADM IN Order Information: MRI BRAIN W/WO Accession Number: [id number] CPT: 45742 HISTORY: rule out brain mets COMPARISONS: Head CT dated January 28, 2018 TECHNIQUE: The following sequences were obtained of the head: Sagittal T1- weighted images, axial T2-weighted images, axial FLAIR images, axial susceptibility weighted images, axial T1-weighted images, thin section sagittal T2-weighted images and sagittal and coronal T1-weighted images were obtained through the sella. Additionally, axial diffusion-weighted images were obtained with calculated apparent diffusion coefficients. Additionally, axial T1-weighted images were obtained through the brain after contrast enhancement with a gadolinium-based intravenous contrast agent. Thin section coronal and sagittal T1-weighted images were obtained through the sella, with coronal dynamic enhanced scans through the sella. FINDINGS: HEMORRHAGE/INFARCT: There is no hemorrhage or acute infarct. MASSES/SHIFT: There is no mass or shift. EXTRA-AXIAL SPACES/MENINGES: There are no extra-axial fluid collections. SULCI AND VENTRICLES: The sulci and ventricles are normal in size and position for the patient's stated age. CEREBRUM: There is elevated T2/FLAIR signal within the periventricular white matter without enhancement. BRAINSTEM: There is elevated T2/FLAIR signal within the pontine white matter, without enhancement. CEREBELLUM: There are no focal parenchymal abnormalities. The cerebellar tonsils are normal in size and position. SELLA: The sella is normal. PINEAL: The pineal region is clear. CP ANGLE/TEMPORAL BONES: The labyrinthine structures are grossly normal. VESSELS: Normal flow-voids are noted within the visualized vertebral vasculature. DIFFUSION ABNORMALITIES: There are no diffusion abnormalities. PARANASAL SINUSES/MASTOIDS: The paranasal sinuses are clear. There are small bilateral mastoid effusions. ORBITS: The orbits are unremarkable. BONES AND SOFT TISSUE: No bone or soft tissue abnormalities are noted. OTHER: There is no abnormal enhancement. IMPRESSION: 1. ELEVATED T2/FLAIR SIGNAL WITHIN THE PERIVENTRICULAR, SUBCORTICAL, AND PONTINE WHITE MATTER, NONSPECIFIC BUT SUGGESTIVE OF CHRONIC SMALL VESSEL ISCHEMIC CHANGE. 2. SMALL BILATERAL MASTOID EFFUSIONS. 3. NO ABNORMAL ENHANCEMENT, VASOGENIC EDEMA, OR SPACE-OCCUPYING LESION TO SUGGEST METASTATIC DISEASE TO THE BRAIN. Assess/Plan/Problems-Billing Assessment: This is a 62 yo male PMH CAD s/p stents (circ, LAD, RCA), IDDMT2, PVD s/p right BKA, HLD, current smoker p/w Inferior Q waves and ST elevations, downtrending troponins, 1 month epigastric/lower chest pain and altered mental status. - Patient Problems (1) Esophageal thickening Code(s): K22.8 - OTHER SPECIFIED DISEASES OF ESOPHAGUS SNOMED Code(s): 56235410 Comment: - EGD with biopsy today with Dr. Ordonez - Gross appearance of esophagus shows friable, bloody tissue, congruent with neoplasm - Pending official pathology report - Consult onco tomorrow, may benefit from radiation, even if palliative (2) Hepatic metastases Code(s): C78.7 - SECONDARY MALIG NEOPLASM OF LIVER AND INTRAHEPATIC BILE DUCT SNOMED Code(s): 47226735 Comment: - Multiple liver lesions with mediastinal lymphadenopathy and rising ammonia levels - Very likely liver mets (primary source esophagus??) - Pending path from today's biopsy - Will consult oncology tomorrow - Received one dose Elitek for suspected tumor lysis, although this is less likely and patient is not on cytotoxic regimen. will defer to oncology for further management (3) Lethargy Code(s): R53.83 - OTHER FATIGUE SNOMED Code(s): 656668210 Comment: - MRI brain negative for mets - Likley toxic metabolic/hepatic encephalopathy in setting of liver CA - Per neuro, less likely CVA or paraneoplastic syndrome - Mentation improved with lactulose, will continue (4) Diabetes Current Visit: No Status: Acute Code(s): E11.9 - TYPE 2 DIABETES MELLITUS WITHOUT COMPLICATIONS SNOMED Code(s): 63682747 Comment: SSI, has barely tolerated food last month. formerly home dose of 50UBID and metformin but he lives in [facility] has not been eating and likely not compliant with the insulin. (5) HTN (hypertension) Code(s): I10 - ESSENTIAL (PRIMARY) HYPERTENSION SNOMED Code(s): 85562718 Comment: - Stable on ramipril and BB (6) History of COPD Code(s): Z87.09 - PERSONAL HISTORY OF OTHER DISEASES OF THE RESPIRATORY SYSTEM SNOMED Code(s): 456351755 Comment: - Hx of tobacco abuse - Not in exacerbation - Albuterol PRN Status and Disposition: Inpatient, prognosis guarded. Extensive conversation with patient and family regarding POC and the likelihood of cancer. Patient's family wants to discuss with oncology, however hospice was also discussed if the patient's case is futile and family is prepared if that is the case. Will refer to Safety Representative services as well.
[2018-01-29] MEDS ORDERED: Lidocaine 2% VISCOUS* 15 ML UDC SWISH SPIT PRN (18:38)
--- NOTE | 2018-01-29 20:45 | CONS ---
CONSULTATION REPORT: DATE OF CONSULT: 01/27/18 REQUESTING PHYSICIAN: Dr. Stanford. NARRATIVE: Mr. Driscoll is a 62-year-old gentleman who comes in with 1 month of vomiting and abdominal pain. He has lost approximately 30 pounds throughout all of this. He denies any blood in the stool. No unintentional weight loss. In the emergency room, he did have a CT abdomen and pelvis, which showed possible liver metastases and a distal esophageal thickening. He does have dysphagia to solids. He has epigastric pain pretty much all the time. PAST MEDICAL HISTORY: Hyperlipidemia, peripheral vascular disease, hypertension , type 2 diabetes, coronary artery disease. PAST SURGICAL HISTORY: Includes right [id number] amputation, back surgery, cholecystectomy. MEDICATIONS: Upon admission include: 1. Ramipril. 2. Metformin. 3. Metoprolol. 4. Subcutaneous insulin. 5. Ibuprofen. 6. Combivent. 7. Gabapentin. 8. Famotidine. 9. Lipitor. 10. Amlodipine. 11. Aspirin. 12. Amitriptyline. ALLERGIES: None. FAMILY HISTORY: Nonspecific cancer. SOCIAL HISTORY: Continues to smoke. No alcohol. REVIEW OF SYSTEMS: Twelve systems were reviewed, other than that mentioned in the HPI are unremarkable. PHYSICAL EXAM: Vital Signs: Temperature is 98.0, blood pressure is 105/54, pulse is 79, respiratory rate of 20, O2 sat is 100%. General: Chronically ill- appearing male, appears older than stated age. Alert, oriented, pleasant, fluent. HEENT: Mucous membranes are moist. Dentition is poor and absent. Head is normocephalic, atraumatic. Positive facial hair. Heart: Regular rate and rhythm. Lungs: Clear to auscultation, but diffuse breath sounds bilaterally. Some wheezes. Abdomen: Positive bowel sounds. Soft, nontender, nondistended. Skin is warm and dry. LABORATORY DATA: Of note, white count is 10.8, hemoglobin is 12. Sodium is 130. ASSESSMENT AND PLAN: This is a pleasant 62-year-old gentleman with possible hepatic mets and potentially a primary esophageal adenocarcinoma. Given his symptoms, his weight loss, and the CT findings, we do need to perform an upper endoscopy. I will make arrangements for it and we will follow along. [id number]/[facility] #: [id number] [facility]
[2018-01-29] MEDS: Atorvastatin* 40 MG TAB PO SCH (22:13)
[2018-01-30] MEDS: Vancomycin(*) 1,000 MG in NS 0.9% 250 ML* 250 ML IVPB SCH ×3 (00:25→16:00)
--- NOTE | 2018-01-30 00:49 | PRO ---
CC: Dr. Tree Hernandez * DATE OF PROCEDURE: 01/29/18 - ROOM #43 REFERRING PHYSICIAN: Dr. Tree Hernandez. MEDICATIONS GIVEN: 25 mcg IV fentanyl, 3 mg IV Versed. DESCRIPTION OF PROCEDURE: After the EGD procedure, including the risks, benefits, and alternatives, not limited to perforation, surgery and/or were explained to Mr. Driscoll, written consent was then obtained. IV medication was given and a bite block was placed between the teeth. An Olympus gastroscope was then inserted into the patient's mouth, advanced down the esophagus, into the stomach, and into the distal duodenum. In the esophagus, there was a large mass from 27 to 37 cm from the incisors. It was very friable. It bled very easily. Biopsies were obtained. Most likely this is a malignancy. The scope was advanced through the GE junction and into the body of the stomach. Retroflex view was unremarkable. Forward view revealed mild gastritis. Scope was advanced through a widely patent pylorus and into the duodenal bulb. Scope was then withdrawn from the patient. Multiple biopsy were taken of the distal esophageal mass. Scope was withdrawn. He tolerated the procedure well. He was returned to his hospital room in stable condition. IMPRESSION: 1. Complete upper endoscopy into the duodenum with biopsies. 2. Distal esophageal mass, status post biopsies. Given the fact that he has a CT showing likely liver metastases, I do worry that this could a malignancy. I will await the biopsies. [id number]/[facility] #: [id number] MTDD
[2018-01-30] MEDS: Heparin VIAL(*) 5000 UNITS/ML VIAL (FIVE THOUSAND) SUBCUT SCH ×3 (06:24→20:45)
[2018-01-30 07:25] LABS: ABS Basophils 0.1 10^3/ul (0-0.2); ABS Eosinophils 0.1 10^3/ul (0-0.6); ABS Lymphocytes 0.4 10^3/ul (1.0-4.8); ABS Monocytes 0.7 10^3/ul (0-0.8); ABS Neutrophils 10.8 10^3/ul (1.5-7.7); ABS Nucleated RBC 0 10^3/ul; Eosinophil % 0.5 % (0-6); Hematocrit 34 % (42-52); Hemoglobin 11.7 g/dl (14.0-18.0); Lymphocyte % 3.3 % (25-47); Mean Corpuscular HGB Conc 34 g/dl (31-36); Mean Corpuscular Hemoglobin 29 pg (27-31); Mean Corpuscular Volume 84 fL (80-94); Mean Platelet Volume 7.7 um3 (7.4-10.4); Nucleated Red Blood Cells % 0; Platelet Count 215 10^3/ul (150-450); Red Cell Distribution Width 16 % (10.5-15); White Blood Count 12.1 10^3/ul (3.5-10.8)
[2018-01-30] MEDS: Insulin LISPRO* 1 UNITS UNIT SUBCUT SCH ×4 (07:32→20:44)
[2018-01-30] MEDS: Nystatin TOP POWDER* 15 GM BTL TOPICAL SCH ×3 (07:58→19:34)
[2018-01-30] MEDS: Famotidine TAB* 20 MG PO SCH ×2 (08:20→19:32)
[2018-01-30] MEDS: Metoprolol Tartrate TAB* 50 mg PO SCH ×3 (08:20→19:33)
[2018-01-30] MEDS: Aspirin 81 mg CHEW TAB* 81 MG TAB.CHEW PO SCH (08:20)
[2018-01-30] MEDS: Acetaminophen TAB* 325 MG PO PRN (09:02)
--- NOTE | 2018-01-30 17:30 | PN ---
Subjective Date of Service: 01/30/18 Interval History: Patient seen and examined. Remains forgetful, family at bedside. Patient states no chest pain, no SOB, no fever or chills. Still has right sided abdominal pain. No n/v. Swallowing without difficulty. Objective Active Medications: Acetaminophen (Tylenol Tab*) 650 mg PO Q4H PRN PRN Reason: PAIN Last Admin: 01/30/18 09:02 Dose: 650 mg Albuterol (Ventolin Hfa Inhaler*) 2 puff INH Q6H PRN PRN Reason: SOB/WHEEZING Albuterol/Ipratropium (Duoneb (Albuterol 2.5 Mg/Ipratropium 0.5 Mg)) 1 neb INH Q6H PRN PRN Reason: SOB/WHEEZING Aspirin (Aspirin 81 Mg Chew Tab*) 81 mg PO DAILY [facility] Last Admin: 01/30/18 08:20 Dose: 81 mg Atorvastatin Calcium (Lipitor*) 40 mg PO BEDTIME [facility] Last Admin: 01/29/18 22:13 Dose: 40 mg Dextrose (D50w Syringe 50 Ml*) 12.5 gm IV PUSH .FOR FS < 60 - SS PRN PRN Reason: FS < 60 Famotidine (Pepcid Tab*) 40 mg PO BID [facility] Last Admin: 01/30/18 08:20 Dose: 40 mg Gadoteridol (Prohance* (Contrast)) 16 ml IV ONCE [facility] Stop: 01/31/18 09:25 Heparin Sodium (Porcine) (Heparin Vial(*)) 5,000 units SUBCUT Q8HR [facility] Last Admin: 01/30/18 14:38 Dose: 5,000 units Vancomycin HCl 1,000 mg/ (Sodium Chloride) 250 mls @ 166.667 mls/hr IVPB Q8H [facility] Last Admin: 01/30/18 16:00 Dose: 166.667 mls/hr Insulin Human Lispro (Humalog*) 0 units SUBCUT ACHS [facility]; Protocol Last Admin: 01/30/18 11:50 Dose: Not Given Lactulose (Lactulose*) 30 ml PO TID [facility] Last Admin: 01/30/18 14:37 Dose: 30 ml Lidocaine (Xylocaine 2% Viscous*) 15 ml SWISH SPIT TID PRN PRN Reason: pain with swallowing Metoprolol Tartrate (Lopressor Tab*) 50 mg PO TID [facility] Last Admin: 01/30/18 14:38 Dose: 50 mg Nitroglycerin (Nitroglycerin Tab 0.4 Mg*) 0.4 mg SL Q5M PRN PRN Reason: ANGINA Last Admin: 01/27/18 11:35 Dose: 0.4 mg Nystatin (Nystatin Top Powder*) 1 applic TOPICAL TID [facility] Last Admin: 01/30/18 14:41 Dose: 1 applic Ondansetron HCl (Zofran Inj*) 4 mg IV Q6H PRN PRN Reason: NAUSEA Last Admin: 01/27/18 22:47 Dose: 4 mg Pharmacy Consult (Vancomycin Per Pharmacy*) 1 note FOLLOW UP .VANC PER PHARMACY [facility] Vital Signs - 8 hr 01/30/18 01/30/18 14:28 15:32 Temperature 97.8 F 97.4 F Pulse Rate 82 76 Respiratory 18 14 Rate Blood Pressure 130/74 130/66 (mmHg) O2 Sat by Pulse 99 98 Oximetry Oxygen Devices in Use Now: None Appearance: Alert, disheveled, NAD Ears/Nose/Mouth/Throat: Clear Oropharnyx, Mucous Membranes Moist Neck: NL Appearance and Movements; NL JVP, Trachea Midline Respiratory: Symmetrical Chest Expansion and Respiratory Effort, Clear to Auscultation Cardiovascular: NL Sounds; No Murmurs; No JVD, RRR, No Edema Abdominal: - - tender RUQ Extremities: No Edema, No Clubbing, Cyanosis Skin: No Rash or Ulcers Neurological: NL Sensation, - - alert, forgetful, otherwise appropriate Nutrition: Taking PO's Result Diagrams: 01/30/18 07:20 01/29/18 05:37 Additional Lab and Data: Laboratory Results - last 24 hr 01/27/18 01/27/18 01/27/18 10:00 10:00 10:00 WBC RBC Hgb Hct MCV MCH MCHC RDW Plt Count MPV Neut % (Auto) Lymph % (Auto) [place] % (Auto) Eos % (Auto) Baso % (Auto) Absolute Neuts (auto) Absolute Lymphs (auto) Absolute Monos (auto) Absolute Eos (auto) Absolute Basos (auto) Absolute Nucleated RBC Nucleated RBC % Sodium 130 L Potassium 4.1 Chloride 99 L Carbon Dioxide 24 Anion Gap 7 BUN 23 Creatinine 0.80 Est GFR ( Amer) 118.1 Est GFR (Non-Af Amer) 97.6 BUN/Creatinine Ratio 28.8 H Glucose 102 H POC Glucose (mg/dL) Hemoglobin A1c 6.6 H Calcium 9.1 Troponin I 0.32 H* Procalcitonin 0.5 01/27/18 01/27/18 01/27/18 12:04 17:01 20:55 WBC RBC Hgb Hct MCV MCH MCHC RDW Plt Count MPV Neut % (Auto) Lymph % (Auto) [place] % (Auto) Eos % (Auto) Baso % (Auto) Absolute Neuts (auto) Absolute Lymphs (auto) Absolute Monos (auto) Absolute Eos (auto) Absolute Basos (auto) Absolute Nucleated RBC Nucleated RBC % Sodium Potassium Chloride Carbon Dioxide Anion Gap BUN Creatinine Est GFR ( Amer) Est GFR (Non-Af Amer) BUN/Creatinine Ratio Glucose POC Glucose (mg/dL) 97 89 77 Hemoglobin A1c Calcium Troponin I Procalcitonin 01/27/18 01/28/18 01/28/18 22:37 04:58 06:20 WBC 12.1 H RBC 4.44 Hgb 12.7 L Hct 37 L MCV 84 MCH 29 MCHC 34 RDW 16 H Plt Count 261 MPV 7.9 Neut % (Auto) 85.2 H Lymph % (Auto) 5.6 L [place] % (Auto) 7.4 H Eos % (Auto) 0.8 Baso % (Auto) 1.0 Absolute Neuts (auto) 10.3 H Absolute Lymphs (auto) 0.7 L Absolute Monos (auto) 0.9 H Absolute Eos (auto) 0.1 Absolute Basos (auto) 0.1 Absolute Nucleated RBC 0 Nucleated RBC % 0 Sodium Potassium Chloride Carbon Dioxide Anion Gap BUN 21 Creatinine 0.76 Est GFR ( Amer) 125.3 Est GFR (Non-Af Amer) 103.6 BUN/Creatinine Ratio Glucose POC Glucose (mg/dL) 109 H Hemoglobin A1c Calcium Troponin I Procalcitonin 01/28/18 07:33 WBC RBC Hgb Hct MCV MCH MCHC RDW Plt Count MPV Neut % (Auto) Lymph % (Auto) [place] % (Auto) Eos % (Auto) Baso % (Auto) Absolute Neuts (auto) Absolute Lymphs (auto) Absolute Monos (auto) Absolute Eos (auto) Absolute Basos (auto) Absolute Nucleated RBC Nucleated RBC % Sodium Potassium Chloride Carbon Dioxide Anion Gap BUN Creatinine Est GFR ( Amer) Est GFR (Non-Af Amer) BUN/Creatinine Ratio Glucose POC Glucose (mg/dL) 110 H Hemoglobin A1c Calcium Troponin I Procalcitonin Microbiology and Other Data: Microbiology 01/26/18 18:04 Blood Venous Aerobic Blood Culture - Preliminary Staphylococcus Hominis 01/26/18 18:04 Blood Venous Anaerobic Blood Culture - Preliminary Staphylococcus Hominis 01/26/18 18:04 Blood Venous Blood MRSA/MSSA (PCR) - Final Mrsa Negative S.aureus Negative 01/26/18 13:45 Blood Venous Aerobic Blood Culture - Preliminary No Growth Day 1 01/26/18 13:45 Blood Venous Anaerobic Blood Culture - Preliminary No Growth Day 1 Diagnostic Imaging: CT ABDOMEN AND PELVIS Patient Name: JARVIS ALEMAN SR Medical Record#: [id number] Ordering Physician: Colin Alcala MD Acct.#: [id number] : 1955 Age: 62 Sex: M Location: EMERGENCY DEPARTMENT Exam Date: 01/26/181558 ADM Status: REG ER Order Information: CT ABD/PEL W Accession Number: [id number] CPT: 77566 INDICATION: Abdominal pain COMPARISON: CT aortogram and runoff July 20, 2015 TECHNIQUE: Axial source images were obtained from the hemidiaphragms to the symphysis pubis following administration of oral and intravenous contrast. 100 mL Visipaque 320 was utilized. Coronal and sagittal reconstructed images were acquired. There is suboptimal contrast opacification due to difficulties with the IV. Lung bases: The lung bases are clear. There is prior cardiothoracic surgery and/ or stenting Liver: There is cirrhotic liver morphology. There are numerous hepatic lesions consistent with diffuse hepatic metastasis. These involve both right and left hepatic lobes. Similar lesions are confluent. The largest lesions measure approximately 4 cm Gallbladder: Cholecystectomy. Spleen: The spleen is mildly enlarged measuring 14 cm in diagonal dimension. There are no masses. Pancreas: No definitive focal pancreatic findings or ductal dilatation. There is extensive adjacent adenopathy is noted below. Adrenal glands: There is no evidence of adrenal mass. Kidneys: The kidneys are normal in size and position. There are prompt nephrograms and there is prompt excretion bilaterally. There is a 5 cm left renal cyst. There is also a left-sided parapelvic cyst There is no evidence of nephrolithiasis. Adenopathy: There is extensive adenopathy. There are multiple enlarged lymph nodes at the diaphragmatic hiatus. There is a confluent periportal mass measuring approximately 6 cm in greatest transverse dimension and there are multiple additional smaller peripancreatic and retroperitoneal lymph nodes extending to near the bifurcation. Fluid collections: There is a small amount of ascites and a right-sided diaphragmatic location anteriorly. Vessels:There are atherosclerotic changes involving the aorta and iliac vessels. There is no focal aneurysm. The IVC appears normal. GI tract: There are no acute CT bowel findings. There is no obstruction. There is circumferential mural thickening of the distal esophagus worrisome for esophageal neoplasia. There are no specific abnormalities the lower GI tract. Pelvic organs: The prostate and seminal vesicles appear normal Bladder: There are no bladder masses. Abdominal and pelvic soft tissues: The extraperitoneal abdominal and pelvic soft tissues appear normal.. This report is only to be considered final once signed by the Provider(s) as displayed in the "<Electronically Signed by >" field (s). Absence of a signature indicates the report is in a draft status and still needs to be finalized. In the event this document was created by someone other than the signing Provider, the individual initiating the document will be listed in the "Entered by:" or "Dictated by:" tavarez. 1 of 2 Osseous structures: There are advanced osteoarthritic changes of thoracolumbar spine. There is grade 2 anterolisthesis of L5-S1 with evidence of prior surgical fusion at L4-S1. Other: None IMPRESSION: 1. Cirrhotic liver morphology with extensive hepatic lesions consistent with diffuse hepatic metastasis. 2. Extensive infradiaphragmatic adenopathy as described. 3. Mild circumferential thickening of the distal esophagus suggests the possibility of esophageal neoplasia. 4. Mild splenomegaly. 5. Small amount of ascites. <Electronically signed by Raymundo Womack MD in [place]> 01/26/181936 Dictated By: Raymundo Womack MD Dictated Date/Time: 01/26/181936 Transcribed Date/Time: 01/26/181912 Copy to: Patient Name: JARVIS ALEMAN SR Medical Record#: [id number] Ordering Physician: Jorge Kimbrough [id number] 1955 Age: 62 Sex: M Location: [address] [place] [address] MEDICAL/TELEMETRY Exam Date: 01/29/18 1300 ADM Status: ADM IN Order Information: MRI BRAIN W/WO Accession Number: [id number] CPT: 00234 HISTORY: rule out brain mets COMPARISONS: Head CT dated January 28, 2018 TECHNIQUE: The following sequences were obtained of the head: Sagittal T1- weighted images, axial T2-weighted images, axial FLAIR images, axial susceptibility weighted images, axial T1-weighted images, thin section sagittal T2-weighted images and sagittal and coronal T1-weighted images were obtained through the sella. Additionally, axial diffusion-weighted images were obtained with calculated apparent diffusion coefficients. Additionally, axial T1-weighted images were obtained through the brain after contrast enhancement with a gadolinium-based intravenous contrast agent. Thin section coronal and sagittal T1-weighted images were obtained through the sella, with coronal dynamic enhanced scans through the sella. FINDINGS: HEMORRHAGE/INFARCT: There is no hemorrhage or acute infarct. MASSES/SHIFT: There is no mass or shift. EXTRA-AXIAL SPACES/MENINGES: There are no extra-axial fluid collections. SULCI AND VENTRICLES: The sulci and ventricles are normal in size and position for the patient's stated age. CEREBRUM: There is elevated T2/FLAIR signal within the periventricular white matter without enhancement. BRAINSTEM: There is elevated T2/FLAIR signal within the pontine white matter, without enhancement. CEREBELLUM: There are no focal parenchymal abnormalities. The cerebellar tonsils are normal in size and position. SELLA: The sella is normal. PINEAL: The pineal region is clear. CP ANGLE/TEMPORAL BONES: The labyrinthine structures are grossly normal. VESSELS: Normal flow-voids are noted within the visualized vertebral vasculature. DIFFUSION ABNORMALITIES: There are no diffusion abnormalities. PARANASAL SINUSES/MASTOIDS: The paranasal sinuses are clear. There are small bilateral mastoid effusions. ORBITS: The orbits are unremarkable. BONES AND SOFT TISSUE: No bone or soft tissue abnormalities are noted. OTHER: There is no abnormal enhancement. IMPRESSION: 1. ELEVATED T2/FLAIR SIGNAL WITHIN THE PERIVENTRICULAR, SUBCORTICAL, AND PONTINE WHITE MATTER, NONSPECIFIC BUT SUGGESTIVE OF CHRONIC SMALL VESSEL ISCHEMIC CHANGE. 2. SMALL BILATERAL MASTOID EFFUSIONS. 3. NO ABNORMAL ENHANCEMENT, VASOGENIC EDEMA, OR SPACE-OCCUPYING LESION TO SUGGEST METASTATIC DISEASE TO THE BRAIN. Assess/Plan/Problems-Billing Assessment: This is a 62 yo male PMH CAD s/p stents (circ, LAD, RCA), IDDMT2, PVD s/p right BKA, HLD, current smoker p/w Inferior Q waves and ST elevations, downtrending troponins, 1 month epigastric/lower chest pain and altered mental status. - Patient Problems (1) Esophageal thickening Code(s): K22.8 - OTHER SPECIFIED DISEASES OF ESOPHAGUS SNOMED Code(s): 82414453 Comment: - s/p EGD with biopsy 01/[address] Ordonez - Gross appearance of esophagus shows friable, bloody tissue, congruent with neoplasm - Pending official pathology report, likely 01/31 - Oncology consult appreciated, would benefit from radiation, even if palliative, but prognosis appears poor if this is primary esophageal with mets to liver (2) Hepatic metastases Code(s): C78.7 - SECONDARY MALIG NEOPLASM OF LIVER AND INTRAHEPATIC BILE DUCT SNOMED Code(s): 48360387 Comment: - Multiple liver lesions with mediastinal lymphadenopathy and rising ammonia levels - Very likely liver mets from esophagus - Oncology following - Received one dose Elitek for suspected tumor lysis, although this is less likely and patient is not on cytotoxic regimen. Will defer to oncology for further management (3) Bacteremia Code(s): R78.81 - BACTEREMIA SNOMED Code(s): 4764901 Comment: - Positive for staph hominus on 01/26 and 01/28 with leukocytosis - Afebrile - Primary source unclear, may be tumor necrosis - Will DC vanco and place on cefazolin 2grams Q8h (4) Lethargy Code(s): R53.83 - OTHER FATIGUE SNOMED Code(s): 906483101 Comment: - MRI brain negative for mets - Likley toxic metabolic/hepatic encephalopathy in setting of liver mets and positive blood cultures - Per neuro, less likely CVA or paraneoplastic syndrome - Mentation improved with lactulose, will continue (5) Diabetes Code(s): E11.9 - TYPE 2 DIABETES MELLITUS WITHOUT COMPLICATIONS SNOMED Code(s) : 36804876 Comment: - Continue SSI, has barely tolerated food last month, no dysphagia last 48 hours - Formerly home dose of 50UBID and metformin but he lives in [facility] [place] has not been eating and likely not compliant with the insulin. (6) HTN (hypertension) Code(s): I10 - ESSENTIAL (PRIMARY) HYPERTENSION SNOMED Code(s): 44673939 Comment: - Stable on ramipril and BB (7) History of COPD Code(s): Z87.09 - PERSONAL HISTORY OF OTHER DISEASES OF THE RESPIRATORY SYSTEM SNOMED Code(s): 283115748 Comment: - Hx of tobacco abuse - Not in exacerbation - Albuterol PRN (8) DNR (do not resuscitate) discussion Code(s): Z71.89 - OTHER SPECIFIED COUNSELING SNOMED Code(s): 848615471 Comment: - Patient MOLST needs updating after family meeting and POC is determined - Family having issues with health care proxy, Esteban, who is the son that the patient lives with - This needs to be clarified, as patient's home living conditions are poor/ squalid and his step-daughter and other son will want to take the patient at discharge which they feel would be safer for the patient. Social work needs to continue to follow. Status and Disposition: Inpatient, prognosis guarded. Patient will likely need palliative radiation and hospice. Family wants to have meeting tomorrow to discuss plan after pathology report is available wo they can help make an informed decision, as patient's mental status waxes and wanes and he many not have the capacity to understand the situation.
[2018-01-30] MEDS ORDERED: cefTRIAXone(*) 1 GM in NS 0.9% 50 ML* 50 ML IVPB SCH (18:00)
[2018-01-30] MEDS: ceFAZolin 2 GM PREMIX (*) 2 GM/50 ML BAG IVPB SCH (18:33)
[2018-01-30] MEDS: Atorvastatin* 40 MG TAB PO SCH (19:32)
--- NOTE | 2018-01-30 23:16 | CONS ---
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 HISTORY OF PRESENT ILLNESS: Mr. Driscoll is a 62-year-old male whose history is provided mostly by his son, Ciaran James Jr. The patient lives per that son with another son, who is disabled. His son reports that the patient has been complaining of right upper quadrant pain over the past several weeks prior to admission. He has apparently lost a significant amount of weight per the son of approximately 50 pounds. He was found to be increasingly lethargic and confused and brought to the emergency room. He was having difficulty swallowing. He has had a lot of reflux and regurgitation of pretty much anything that he tried to swallow. Since he has been in the hospital, workup has included a CT scan of the abdomen, which reveals multiple large liver lesions consistent with metastatic disease. In addition, it shows a mildly enlarged spleen. No significant abnormalities at lung bases. There is extensive adenopathy with lymph nodes at the diaphragm along with confluent periportal mass up to 6 cm and multiple other smaller peripancreatic and retroperitoneal lymph nodes extending to the aortic bifurcation. There was circumferential mural thickening of the distal esophagus worrisome for esophageal carcinoma. The patient was subsequently seen in consultation by Dr. Ordonez of Gastroenterology and EGD was performed on 01/29/18. This revealed a large mass in the esophagus extending from 27 cm down to 37 cm from the incisors. It was friable and it bled easily, most consistent with malignancy. Pathology is still pending at the present time. Laboratory studies since in the hospital have included an elevated ammonia level and as the patient's ammonia level has been treated with lactulose, he has become somewhat less somnolent and lethargic, although still only arousing intermittently, at which point he is mildly confused. Ammonia level has come down from 73 to 37 with lactulose. He has mildly elevated LFTs with a bilirubin of 1.4, AST 67, and alk phos of 281. PAST MEDICAL HISTORY: Significant for: 1. Longstanding smoking history. 2. History of alcohol use and abuse in the past, but not recently. 3. Type 2 diabetes. 4. Hypertension. 5. Coronary artery disease. 6. Hyperlipidemia. 7. Peripheral vascular disease. PAST SURGICAL HISTORY: 1. The patient is status post right [id number]-[id number] amputation approximately 2 years ago due to his diabetes. 2. Status post cholecystectomy. 3. Status post back surgery. MEDICATIONS: At the time of admission included: 1. Ramipril 5 mg b.i.d. 2. Metformin 1000 mg b.i.d. 3. Metoprolol 50 mg b.i.d. 4. Lispro insulin 40 units t.i.d. a.c. 5. Lantus 50 units b.i.d. 6. Gabapentin 200 mg t.i.d. 7. Famotidine 40 mg b.i.d. 8. Lipitor 20 mg daily. 9. Amlodipine 5 mg b.i.d. 10. Aspirin 325 daily. 11. Amitriptyline 25 mg at h.s. 12. P.r.n. ibuprofen. 13. Combivent 2 puffs q.6 hours. ALLERGIES: None. FAMILY HISTORY: Son believes that the father in his 80s of pancreatic carcinoma. SOCIAL HISTORY: Smoking since age 11, reduced recently, but previously a pack a day or more. No alcohol recently, just significant in the past. 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 He has 2 children, one of whom was in the room at the time of this consultation and reports that he would like to be the healthcare proxy, although currently, the niece Maricruz Crowley, is the healthcare proxy, but wishes to no longer retain this role. REVIEW OF SYSTEMS: Only obtainable information from son since the patient is unable to provide information. PHYSICAL EXAM: Somewhat disheveled 62-year-old male, in no acute distress. Vital signs stable. No cervical, supraclavicular, axillary adenopathy. Lungs, clear. Heart: Regular rate and rhythm without murmurs, rubs, or gallops. Abdomen: Soft, nontender without masses or organomegaly. Extremities: Status post right BKA, left with minimal edema. IMPRESSION AND PLAN: A 62-year-old male with metastatic disease to the liver, almost certainly from an esophageal primary. He has had an EGD yesterday, pathology is pending. Situation discussed at length with the patient's son and his son's significant other. They both understand this is not a curable situation, although multiple options do exist. These range from hospice services only and treating the patient palliatively without trying to improve his swallowing or improve his quality of life. Next option would be short course of radiation therapy in an attempt to palliate his swallowing and certainly possible if this is elected that one could then go on to hospice and it is also possible that when attempts to do this by the time the swallowing got any better, his liver function may have dramatically worsened or that his level of consciousness may be worse from the hyperammonia. Final option would be that of radiation therapy to help with nutrition, followed by chemotherapy for metastatic disease and it is certainly possible that he will never get to chemotherapy if his overall condition or liver function worsen before the chemotherapy can be started. These options will be discussed in more detail with the patient and his family tomorrow or at any other time once his pathology results from the esophageal biopsy are back. The patient has a DNR status and the son is in agreement with this as is the niece who is the healthcare proxy. The patient did have elevated troponin earlier on the hospitalization, although it does not appear to most likely be a primary cardiac event or rather demand ischemia at the time when he was in distress. [id number]/[facility] #: [id number] OTIS
--- NOTE | 2018-01-31 02:00 | PN ---
NEUROLOGY PROGRESS NOTE: DATE OF SERVICE: 01/30/18 PRIMARY PROVIDER: Jayna Woods NP REASON FOR NEUROLOGY FOLLOWUP: Hepatic encephalopathy. CHIEF COMPLAINT: Mild numbness in the hand and chronic lower extremity numbness and tingling sensation. SUBJECTIVE: Mr. Driscoll is a 62-year-old man with 1 month history of vomiting and abdominal pain. He was found to have an esophageal mass that is likely the primary for his liver metastasis. The patient had slight episodes of confusion that was thought to be related to hepatic encephalopathy in the setting of an elevated ammonia level. His current ammonia level was 37. Clinically, the patient had significant improvement over the last 24 to 48 hours. His family members at bedside stated he is nearly back to baseline. The patient has no acute complaints. REVIEW OF SYSTEMS: He denied any chest pain, shortness of breath, or palpitation. MEDICATIONS: 1. Acetaminophen 650 mg p.o. every 4 hours as needed. 2. Albuterol 2 puffs inhaler every 6 hours. 3. Aspirin 81 mg p.o. daily. 4. Atorvastatin 40 mg p.o. at bedtime. 5. Dextrose 12.5 mg every push. 6. Famotidine 40 mg p.o. twice daily. 7. Insulin. 8. Lactulose. 9. Lidocaine. 10. Metoprolol. 11. Nitroglycerin. 12. Nystatin. 13. Ondansetron. 14. Vancomycin. LABORATORY DATA: WBC of 12.1. INR 1.25. D-dimer 362. Sodium 130. Point-of- care glucose 124. TSH 1.12. Microbiology: The patient is positive for Staphylococcus hominis 2/5 blood cultures. PHYSICAL EXAMINATION: Vitals: Temperature 97.8, pulse rate of 82, respiratory rate of 18, oxygen saturation of 99, and blood pressure 130/74. General: Chronically ill-appearing man, who appears older than stated age. Resting in bed comfortably. Atraumatic, normocephalic. Neck is supple and symmetrical. Extremities: He has got [id number] amputation on the right lower extremity and toe amputation on the left. Psych: Flat affect, slightly depressed mood. Mental Status: He is awake and alert, oriented to person, place, time, and general circumstances. He knows family members and who are at bedside. Pupils are equal, round, and reactive to light. Extraocular muscles are intact. No facial asymmetry. Tongue is symmetrical and midline. Motor: No abnormal movements or pronator drift. Negative asterixis. He is able to elevate all extremities against gravity and resistance. Reflexes: Trace throughout and absent in the lower extremities. Sensation is intact to light touch throughout. Coordination is normal [id number]. Did not assess gait. ASSESSMENT: Mr. Ciaran Driscoll is a 62-year-old man who presented with acute hepatic encephalopathy that is slowly recovering. Family stated that he is nearly back to his normal self. Ammonia level has trended down. Unfortunately , the patient was newly diagnosed with esophageal cancer that probably metastasized to the liver. The patient also has most likely diabetic polyneuropathy, which is explaining some of his hand and foot paresthesias. There is no further neurological workup at this time. Please contact us for any questions or concerns, otherwise I will sign off. [id number]/[facility] #: [id number] MTDD
[2018-01-31] MEDS: ceFAZolin 2 GM PREMIX (*) 2 GM/50 ML BAG IVPB SCH ×3 (02:03→17:46)
[2018-01-31] MEDS: Heparin VIAL(*) 5000 UNITS/ML VIAL (FIVE THOUSAND) SUBCUT SCH ×3 (05:07→21:33)
[2018-01-31] MEDS: Insulin LISPRO* 1 UNITS UNIT SUBCUT SCH ×4 (07:34→20:37)
[2018-01-31] MEDS: Famotidine TAB* 20 MG PO SCH ×2 (08:41→20:38)
[2018-01-31] MEDS: Metoprolol Tartrate TAB* 50 mg PO SCH ×3 (08:41→20:39)
[2018-01-31] MEDS: Aspirin 81 mg CHEW TAB* 81 MG TAB.CHEW PO SCH (08:41)
[2018-01-31] MEDS: Nystatin TOP POWDER* 15 GM BTL TOPICAL SCH ×3 (08:43→20:42)
[2018-01-31 13:37] LABS: ABS Basophils 0.1 10^3/ul (0-0.2); ABS Eosinophils 0.1 10^3/ul (0-0.6); ABS Lymphocytes 0.4 10^3/ul (1.0-4.8); ABS Monocytes 0.7 10^3/ul (0-0.8); ABS Neutrophils 10.9 10^3/ul (1.5-7.7); ABS Nucleated RBC 0 10^3/ul; Eosinophil % 0.5 % (0-6); Hematocrit 36 % (42-52); Lymphocyte % 3.5 % (25-47); Mean Corpuscular HGB Conc 34 g/dl (31-36); Mean Corpuscular Hemoglobin 29 pg (27-31); Mean Corpuscular Volume 84 fL (80-94); Mean Platelet Volume 8.1 um3 (7.4-10.4); Nucleated Red Blood Cells % 0; Platelet Count 261 10^3/ul (150-450); Red Blood Count 4.21 10^6/ul (4.00-5.40); Red Cell Distribution Width 16 % (10.5-15); White Blood Count 12.1 10^3/ul (3.5-10.8)
--- NOTE | 2018-01-31 15:42 | PN ---
Subjective Date of Service: 01/31/18 Interval History: Patient seen and evaluated at the bedside found to be laying in bed sleeping - awakes to voice but falls back asleep - he is able to tell me that he is in the hospital. Son and daughter in law at bedside. They are considering hospice and plan to bring patient home. The son is not sure if he wants to pursue palliative radiation and is thinking about the options that Dr. Spencer discussed. The patient is very drowsy on exam. He denies pain or discomfort. Per son he was much more awake this morning and interactive Objective Active Medications: Acetaminophen (Tylenol Tab*) 650 mg PO Q4H PRN PRN Reason: PAIN Last Admin: 01/30/18 09:02 Dose: 650 mg Albuterol (Ventolin Hfa Inhaler*) 2 puff INH Q6H PRN PRN Reason: SOB/WHEEZING Albuterol/Ipratropium (Duoneb (Albuterol 2.5 Mg/Ipratropium 0.5 Mg)) 1 neb INH Q6H PRN PRN Reason: SOB/WHEEZING Aspirin (Aspirin 81 Mg Chew Tab*) 81 mg PO DAILY [facility] Last Admin: 01/31/18 08:41 Dose: 81 mg Atorvastatin Calcium (Lipitor*) 40 mg PO BEDTIME [facility] Last Admin: 01/30/18 19:32 Dose: 40 mg Dextrose (D50w Syringe 50 Ml*) 12.5 gm IV PUSH .FOR FS < 60 - SS PRN PRN Reason: FS < 60 Famotidine (Pepcid Tab*) 40 mg PO BID [facility] Last Admin: 01/31/18 08:41 Dose: 40 mg Heparin Sodium (Porcine) (Heparin Vial(*)) 5,000 units SUBCUT Q8HR [facility] Last Admin: 01/31/18 13:58 Dose: 5,000 units Cefazolin Sodium/Dextrose (Kefzol 2 Gm Premix(*)) 2 gm in 50 mls @ 100 mls/hr IVPB Q8H [facility] Last Admin: 01/31/18 09:27 Dose: 100 mls/hr Insulin Human Lispro (Humalog*) 0 units SUBCUT ACHS [facility]; Protocol Last Admin: 01/31/18 11:31 Dose: Not Given Lactulose (Lactulose*) 30 ml PO TID [facility] Last Admin: 01/31/18 13:58 Dose: 30 ml Lidocaine (Xylocaine 2% Viscous*) 15 ml SWISH SPIT TID PRN PRN Reason: pain with swallowing Metoprolol Tartrate (Lopressor Tab*) 50 mg PO TID [facility] Last Admin: 01/31/18 13:58 Dose: 50 mg Nitroglycerin (Nitroglycerin Tab 0.4 Mg*) 0.4 mg SL Q5M PRN PRN Reason: ANGINA Last Admin: 01/27/18 11:35 Dose: 0.4 mg Nystatin (Nystatin Top Powder*) 1 applic TOPICAL TID [facility] Last Admin: 01/31/18 14:01 Dose: 1 applic Ondansetron HCl (Zofran Inj*) 4 mg IV Q6H PRN PRN Reason: NAUSEA Last Admin: 01/27/18 22:47 Dose: 4 mg Vital Signs - 8 hr 01/31/18 01/31/18 01/31/18 07:36 08:00 11:34 Temperature 97.6 F 97.8 F Pulse Rate 86 78 Respiratory 18 18 20 Rate Blood Pressure 150/71 127/64 (mmHg) O2 Sat by Pulse 99 97 Oximetry Oxygen Devices in Use Now: None Appearance: 62 yo male drowsy - answer some questions appropriate, confused Eyes: No Scleral Icterus, PERRLA Ears/Nose/Mouth/Throat: Mucous Membranes Moist Respiratory: Symmetrical Chest Expansion and Respiratory Effort, Clear to Auscultation Cardiovascular: NL Sounds; No Murmurs; No JVD, RRR, No Edema Abdominal: NL Sounds; No Tenderness; No Distention Extremities: No Edema, No Clubbing, Cyanosis, - - s/p RTK Lines/Tubes/Other Access: Clean, Dry and Intact Peripheral IV Nutrition: Taking PO's Result Diagrams: 01/31/18 13:20 01/29/18 05:37 Additional Lab and Data: Laboratory Results - last 24 hr 01/27/18 01/27/18 01/27/18 10:00 10:00 10:00 WBC RBC Hgb Hct MCV MCH MCHC RDW Plt Count MPV Neut % (Auto) Lymph % (Auto) [place] % (Auto) Eos % (Auto) Baso % (Auto) Absolute Neuts (auto) Absolute Lymphs (auto) Absolute Monos (auto) Absolute Eos (auto) Absolute Basos (auto) Absolute Nucleated RBC Nucleated RBC % Sodium 130 L Potassium 4.1 Chloride 99 L Carbon Dioxide 24 Anion Gap 7 BUN 23 Creatinine 0.80 Est GFR ( Amer) 118.1 Est GFR (Non-Af Amer) 97.6 BUN/Creatinine Ratio 28.8 H Glucose 102 H POC Glucose (mg/dL) Hemoglobin A1c 6.6 H Calcium 9.1 Troponin I 0.32 H* Procalcitonin 0.5 01/27/18 01/27/18 01/27/18 12:04 17:01 20:55 WBC RBC Hgb Hct MCV MCH MCHC RDW Plt Count MPV Neut % (Auto) Lymph % (Auto) [place] % (Auto) Eos % (Auto) Baso % (Auto) Absolute Neuts (auto) Absolute Lymphs (auto) Absolute Monos (auto) Absolute Eos (auto) Absolute Basos (auto) Absolute Nucleated RBC Nucleated RBC % Sodium Potassium Chloride Carbon Dioxide Anion Gap BUN Creatinine Est GFR ( Amer) Est GFR (Non-Af Amer) BUN/Creatinine Ratio Glucose POC Glucose (mg/dL) 97 89 77 Hemoglobin A1c Calcium Troponin I Procalcitonin 01/27/18 01/28/18 01/28/18 22:37 04:58 06:20 WBC 12.1 H RBC 4.44 Hgb 12.7 L Hct 37 L MCV 84 MCH 29 MCHC 34 RDW 16 H Plt Count 261 MPV 7.9 Neut % (Auto) 85.2 H Lymph % (Auto) 5.6 L [place] % (Auto) 7.4 H Eos % (Auto) 0.8 Baso % (Auto) 1.0 Absolute Neuts (auto) 10.3 H Absolute Lymphs (auto) 0.7 L Absolute Monos (auto) 0.9 H Absolute Eos (auto) 0.1 Absolute Basos (auto) 0.1 Absolute Nucleated RBC 0 Nucleated RBC % 0 Sodium Potassium Chloride Carbon Dioxide Anion Gap BUN 21 Creatinine 0.76 Est GFR ( Amer) 125.3 Est GFR (Non-Af Amer) 103.6 BUN/Creatinine Ratio Glucose POC Glucose (mg/dL) 109 H Hemoglobin A1c Calcium Troponin I Procalcitonin 01/28/18 07:33 WBC RBC Hgb Hct MCV MCH MCHC RDW Plt Count MPV Neut % (Auto) Lymph % (Auto) [place] % (Auto) Eos % (Auto) Baso % (Auto) Absolute Neuts (auto) Absolute Lymphs (auto) Absolute Monos (auto) Absolute Eos (auto) Absolute Basos (auto) Absolute Nucleated RBC Nucleated RBC % Sodium Potassium Chloride Carbon Dioxide Anion Gap BUN Creatinine Est GFR ( Amer) Est GFR (Non-Af Amer) BUN/Creatinine Ratio Glucose POC Glucose (mg/dL) 110 H Hemoglobin A1c Calcium Troponin I Procalcitonin Microbiology and Other Data: Microbiology 01/26/18 18:04 Blood Venous Aerobic Blood Culture - Preliminary Staphylococcus Hominis 01/26/18 18:04 Blood Venous Anaerobic Blood Culture - Preliminary Staphylococcus Hominis 01/26/18 18:04 Blood Venous Blood MRSA/MSSA (PCR) - Final Mrsa Negative S.aureus Negative 01/26/18 13:45 Blood Venous Aerobic Blood Culture - Preliminary No Growth Day 1 01/26/18 13:45 Blood Venous Anaerobic Blood Culture - Preliminary No Growth Day 1 Diagnostic Imaging: CT ABDOMEN AND PELVIS Patient Name: JARVIS ALEMAN SR Medical Record#: [id number] Ordering Physician: Colin Alcala MD Acct.#: [id number] : 1955 Age: 62 Sex: M Location: EMERGENCY DEPARTMENT Exam Date: 01/26/18 1559 ADM Status: REG ER Order Information: CT ABD/PEL W Accession Number: [id number] CPT: 22697 INDICATION: Abdominal pain COMPARISON: CT aortogram and runoff July 20, 2015 TECHNIQUE: Axial source images were obtained from the hemidiaphragms to the symphysis pubis following administration of oral and intravenous contrast. 100 mL Visipaque 320 was utilized. Coronal and sagittal reconstructed images were acquired. There is suboptimal contrast opacification due to difficulties with the IV. Lung bases: The lung bases are clear. There is prior cardiothoracic surgery and/ or stenting Liver: There is cirrhotic liver morphology. There are numerous hepatic lesions consistent with diffuse hepatic metastasis. These involve both right and left hepatic lobes. Similar lesions are confluent. The largest lesions measure approximately 4 cm Gallbladder: Cholecystectomy. Spleen: The spleen is mildly enlarged measuring 14 cm in diagonal dimension. There are no masses. Pancreas: No definitive focal pancreatic findings or ductal dilatation. There is extensive adjacent adenopathy is noted below. Adrenal glands: There is no evidence of adrenal mass. Kidneys: The kidneys are normal in size and position. There are prompt nephrograms and there is prompt excretion bilaterally. There is a 5 cm left renal cyst. There is also a left-sided parapelvic cyst There is no evidence of nephrolithiasis. Adenopathy: There is extensive adenopathy. There are multiple enlarged lymph nodes at the diaphragmatic hiatus. There is a confluent periportal mass measuring approximately 6 cm in greatest transverse dimension and there are multiple additional smaller peripancreatic and retroperitoneal lymph nodes extending to near the bifurcation. Fluid collections: There is a small amount of ascites and a right-sided diaphragmatic location anteriorly. Vessels:There are atherosclerotic changes involving the aorta and iliac vessels. There is no focal aneurysm. The IVC appears normal. GI tract: There are no acute CT bowel findings. There is no obstruction. There is circumferential mural thickening of the distal esophagus worrisome for esophageal neoplasia. There are no specific abnormalities the lower GI tract. Pelvic organs: The prostate and seminal vesicles appear normal Bladder: There are no bladder masses. Abdominal and pelvic soft tissues: The extraperitoneal abdominal and pelvic soft tissues appear normal.. This report is only to be considered final once signed by the Provider(s) as displayed in the "<Electronically Signed by >" field (s). Absence of a signature indicates the report is in a draft status and still needs to be finalized. In the event this document was created by someone other than the signing Provider, the individual initiating the document will be listed in the "Entered by:" or "Dictated by:" tavarez. 1 of 2 Osseous structures: There are advanced osteoarthritic changes of thoracolumbar spine. There is grade 2 anterolisthesis of L5-S1 with evidence of prior surgical fusion at L4-S1. Other: None IMPRESSION: 1. Cirrhotic liver morphology with extensive hepatic lesions consistent with diffuse hepatic metastasis. 2. Extensive infradiaphragmatic adenopathy as described. 3. Mild circumferential thickening of the distal esophagus suggests the possibility of esophageal neoplasia. 4. Mild splenomegaly. 5. Small amount of ascites. <Electronically signed by Raymundo Womack MD in [place]> 01/26/181936 Dictated By: Raymundo Womack MD Dictated Date/Time: 01/26/181936 Transcribed Date/Time: 01/26/181912 Copy to: Patient Name: JARVIS ALEMAN SR Medical Record#: [id number] Ordering Physician: Jorge Kimbrough MD Acct.#: [id number] : 1955 Age: 62 Sex: M Location: [address] [place] [address]/TELEMETRY Exam Date: 01/29/18 1300 ADM Status: ADM IN Order Information: MRI BRAIN W/WO Accession Number: [id number] CPT: 10388 HISTORY: rule out brain mets COMPARISONS: Head CT dated January 28, 2018 TECHNIQUE: The following sequences were obtained of the head: Sagittal T1- weighted images, axial T2-weighted images, axial FLAIR images, axial susceptibility weighted images, axial T1-weighted images, thin section sagittal T2-weighted images and sagittal and coronal T1-weighted images were obtained through the sella. Additionally, axial diffusion-weighted images were obtained with calculated apparent diffusion coefficients. Additionally, axial T1-weighted images were obtained through the brain after contrast enhancement with a gadolinium-based intravenous contrast agent. Thin section coronal and sagittal T1-weighted images were obtained through the sella, with coronal dynamic enhanced scans through the sella. FINDINGS: HEMORRHAGE/INFARCT: There is no hemorrhage or acute infarct. MASSES/SHIFT: There is no mass or shift. EXTRA-AXIAL SPACES/MENINGES: There are no extra-axial fluid collections. SULCI AND VENTRICLES: The sulci and ventricles are normal in size and position for the patient's stated age. CEREBRUM: There is elevated T2/FLAIR signal within the periventricular white matter without enhancement. BRAINSTEM: There is elevated T2/FLAIR signal within the pontine white matter, without enhancement. CEREBELLUM: There are no focal parenchymal abnormalities. The cerebellar tonsils are normal in size and position. SELLA: The sella is normal. PINEAL: The pineal region is clear. CP ANGLE/TEMPORAL BONES: The labyrinthine structures are grossly normal. VESSELS: Normal flow-voids are noted within the visualized vertebral vasculature. DIFFUSION ABNORMALITIES: There are no diffusion abnormalities. PARANASAL SINUSES/MASTOIDS: The paranasal sinuses are clear. There are small bilateral mastoid effusions. ORBITS: The orbits are unremarkable. BONES AND SOFT TISSUE: No bone or soft tissue abnormalities are noted. OTHER: There is no abnormal enhancement. IMPRESSION: 1. ELEVATED T2/FLAIR SIGNAL WITHIN THE PERIVENTRICULAR, SUBCORTICAL, AND PONTINE WHITE MATTER, NONSPECIFIC BUT SUGGESTIVE OF CHRONIC SMALL VESSEL ISCHEMIC CHANGE. 2. SMALL BILATERAL MASTOID EFFUSIONS. 3. NO ABNORMAL ENHANCEMENT, VASOGENIC EDEMA, OR SPACE-OCCUPYING LESION TO SUGGEST METASTATIC DISEASE TO THE BRAIN. Assess/Plan/Problems-Billing Assessment: This is a 62 yo male PMH CAD s/p stents (circ, LAD, RCA), IDDMT2, PVD s/p right BKA, HLD, current smoker p/w Inferior Q waves and ST elevations, downtrending troponins, 1 month epigastric/lower chest pain and altered mental status. - Patient Problems (1) Bacteremia Comment: - Positive for staph hominus on 01/26 and 01/28 with leukocytosis - Afebrile - Primary source unclear, may be tumor necrosis - Continue Cefazolin 2grams Q8h (2) Esophageal thickening Comment: - s/p EGD with biopsy 01/[address] Ordonez - Gross appearance of esophagus shows friable, bloody tissue, congruent with neoplasm - Official pathology report showing adenocarcinoma - Oncology consult appreciated, would benefit from radiation, even if palliative, poor prognosis (3) Hepatic metastases Comment: - Multiple liver lesions with mediastinal lymphadenopathy and rising ammonia levels - Oncology following - Received one dose Elitek for suspected tumor lysis, although this is less likely and patient is not on cytotoxic regimen. Will defer to oncology for further management (4) Lethargy Comment: - MRI brain negative for mets - Likley toxic metabolic/hepatic encephalopathy in setting of liver mets and positive blood cultures - Per neuro, less likely CVA or paraneoplastic syndrome - Mentation improved with lactulose, will continue (5) Diabetes Comment: - Continue lispro with Sliding scale (6) HTN (hypertension) Comment: - Stable on ramipril and BB (7) History of COPD Comment: - current tobacco abuse - Not in exacerbation - Albuterol PRN (8) DNR (do not resuscitate) discussion Comment: (9) DVT prophylaxis Comment: HSQ Status and Disposition: Inpatient, prognosis guarded. Family leaning towards palliative radiation and hospice and would like to bring the patient home.
[2018-01-31] MEDS: Acetaminophen TAB* 325 MG PO PRN (16:56)
[2018-01-31] MEDS: Atorvastatin* 40 MG TAB PO SCH (20:38)
[2018-02-01] MEDS: Heparin VIAL(*) 5000 UNITS/ML VIAL (FIVE THOUSAND) SUBCUT SCH ×3 (06:04→22:03)
[2018-02-01] MEDS: ceFAZolin 2 GM PREMIX (*) 2 GM/50 ML BAG IVPB SCH ×2 (06:06→10:29)
[2018-02-01] MEDS: Aspirin 81 mg CHEW TAB* 81 MG TAB.CHEW PO SCH (08:17)
[2018-02-01] MEDS: Famotidine TAB* 20 MG PO SCH ×2 (08:18→20:54)
[2018-02-01] MEDS: Nystatin TOP POWDER* 15 GM BTL TOPICAL SCH ×3 (08:19→20:56)
[2018-02-01] MEDS: Insulin LISPRO* 1 UNITS UNIT SUBCUT SCH ×4 (08:19→20:56)
[2018-02-01] MEDS: Metoprolol Tartrate TAB* 50 mg PO SCH ×2 (08:23→13:56)
[2018-02-01] MEDS: Acetaminophen TAB* 325 MG PO PRN ×2 (08:59→17:31)
--- NOTE | 2018-02-01 09:56 | PN ---
Subjective Date of Service: 02/01/18 Interval History: Mr. Driscoll is more awake on exam today. He reports to his son that he "wants treatment", but when I discussed with the patient he is not able to give me an answer or have a conversation - when asked a question he doesnt answer. It is hard to determine if this is confusion or dementia or he is having a hard time expressing himself, the patient was making jokes, he asked "do you think this is from smoking", and then stated laughing "I sure want a cigarette", he is more concerned about the music being turned off for the conversation. His son at the bedside is weepy and would like to take him home. His girlfriend states they live in a trailer and is not sure this is manageable. They are still in discussion of what the best plan is. As far as to move forward with treatment or not even for palliative purposes they are not sure and feel very split on what the right choice is. They would like to speak with the oncologist again tomorrow to ask some questions. Objective Active Medications: Acetaminophen (Tylenol Tab*) 650 mg PO Q4H PRN PRN Reason: PAIN Last Admin: 02/01/18 08:59 Dose: 650 mg Albuterol (Ventolin Hfa Inhaler*) 2 puff INH Q6H PRN PRN Reason: SOB/WHEEZING Albuterol/Ipratropium (Duoneb (Albuterol 2.5 Mg/Ipratropium 0.5 Mg)) 1 neb INH Q6H PRN PRN Reason: SOB/WHEEZING Aspirin (Aspirin 81 Mg Chew Tab*) 81 mg PO DAILY [facility] Last Admin: 02/01/18 08:17 Dose: 81 mg Atorvastatin Calcium (Lipitor*) 40 mg PO BEDTIME [facility] Last Admin: 01/31/18 20:38 Dose: 40 mg Dextrose (D50w Syringe 50 Ml*) 12.5 gm IV PUSH .FOR FS < 60 - SS PRN PRN Reason: FS < 60 Famotidine (Pepcid Tab*) 40 mg PO BID [facility] Last Admin: 02/01/18 08:18 Dose: 40 mg Heparin Sodium (Porcine) (Heparin Vial(*)) 5,000 units SUBCUT Q8HR [facility] Last Admin: 02/01/18 06:04 Dose: 5,000 units Cefazolin Sodium/Dextrose (Kefzol 2 Gm Premix(*)) 2 gm in 50 mls @ 100 mls/hr IVPB Q8H [facility] Last Admin: 02/01/18 06:06 Dose: Not Given Insulin Human Lispro (Humalog*) 0 units SUBCUT ACHS [facility]; Protocol Last Admin: 02/01/18 08:19 Dose: 1 unit Lactulose (Lactulose*) 30 ml PO TID [facility] Last Admin: 02/01/18 08:17 Dose: 30 ml Lidocaine (Xylocaine 2% Viscous*) 15 ml SWISH SPIT TID PRN PRN Reason: pain with swallowing Metoprolol Tartrate (Lopressor Tab*) 50 mg PO TID [facility] Last Admin: 02/01/18 08:23 Dose: 50 mg Nitroglycerin (Nitroglycerin Tab 0.4 Mg*) 0.4 mg SL Q5M PRN PRN Reason: ANGINA Last Admin: 01/27/18 11:35 Dose: 0.4 mg Nystatin (Nystatin Top Powder*) 1 applic TOPICAL TID [facility] Last Admin: 02/01/18 08:19 Dose: 1 applic Ondansetron HCl (Zofran Inj*) 4 mg IV Q6H PRN PRN Reason: NAUSEA Last Admin: 01/27/18 22:47 Dose: 4 mg Vital Signs - 8 hr 02/01/18 02/01/18 02/01/18 03:24 07:15 07:43 Temperature 98.3 F 97.9 F Pulse Rate 75 82 Respiratory 20 17 16 Rate Blood Pressure 141/71 146/74 (mmHg) O2 Sat by Pulse 100 Oximetry Oxygen Devices in Use Now: None Appearance: chronically ill 62 yo male alert in NAD, confused Eyes: No Scleral Icterus, PERRLA Ears/Nose/Mouth/Throat: NL Teeth, Lips, Gums, Mucous Membranes Moist Neck: NL Appearance and Movements; NL JVP Respiratory: Symmetrical Chest Expansion and Respiratory Effort, Clear to Auscultation Cardiovascular: NL Sounds; No Murmurs; No JVD, RRR, No Edema Abdominal: NL Sounds; No Tenderness; No Distention Extremities: - - s/p RBKA Neurological: - - alert Lines/Tubes/Other Access: Clean, Dry and Intact Peripheral IV Nutrition: Taking PO's Result Diagrams: 02/01/18 11:15 02/01/18 11:15 Additional Lab and Data: Laboratory Results - last 24 hr 01/27/18 01/27/18 01/27/18 10:00 10:00 10:00 WBC RBC Hgb Hct MCV MCH MCHC RDW Plt Count MPV Neut % (Auto) Lymph % (Auto) Warren % (Auto) Eos % (Auto) Baso % (Auto) Absolute Neuts (auto) Absolute Lymphs (auto) Absolute Monos (auto) Absolute Eos (auto) Absolute Basos (auto) Absolute Nucleated RBC Nucleated RBC % Sodium 130 L Potassium 4.1 Chloride 99 L Carbon Dioxide 24 Anion Gap 7 BUN 23 Creatinine 0.80 Est GFR ( Amer) 118.1 Est GFR (Non-Af Amer) 97.6 BUN/Creatinine Ratio 28.8 H Glucose 102 H POC Glucose (mg/dL) Hemoglobin A1c 6.6 H Calcium 9.1 Troponin I 0.32 H* Procalcitonin 0.5 01/27/18 01/27/18 01/27/18 12:04 17:01 20:55 WBC RBC Hgb Hct MCV MCH MCHC RDW Plt Count MPV Neut % (Auto) Lymph % (Auto) Warren % (Auto) Eos % (Auto) Baso % (Auto) Absolute Neuts (auto) Absolute Lymphs (auto) Absolute Monos (auto) Absolute Eos (auto) Absolute Basos (auto) Absolute Nucleated RBC Nucleated RBC % Sodium Potassium Chloride Carbon Dioxide Anion Gap BUN Creatinine Est GFR ( Amer) Est GFR (Non-Af Amer) BUN/Creatinine Ratio Glucose POC Glucose (mg/dL) 97 89 77 Hemoglobin A1c Calcium Troponin I Procalcitonin 01/27/18 01/28/18 01/28/18 22:37 04:58 06:20 WBC 12.1 H RBC 4.44 Hgb 12.7 L Hct 37 L MCV 84 MCH 29 MCHC 34 RDW 16 H Plt Count 261 MPV 7.9 Neut % (Auto) 85.2 H Lymph % (Auto) 5.6 L Warren % (Auto) 7.4 H Eos % (Auto) 0.8 Baso % (Auto) 1.0 Absolute Neuts (auto) 10.3 H Absolute Lymphs (auto) 0.7 L Absolute Monos (auto) 0.9 H Absolute Eos (auto) 0.1 Absolute Basos (auto) 0.1 Absolute Nucleated RBC 0 Nucleated RBC % 0 Sodium Potassium Chloride Carbon Dioxide Anion Gap BUN 21 Creatinine 0.76 Est GFR ( Amer) 125.3 Est GFR (Non-Af Amer) 103.6 BUN/Creatinine Ratio Glucose POC Glucose (mg/dL) 109 H Hemoglobin A1c Calcium Troponin I Procalcitonin 01/28/18 07:33 WBC RBC Hgb Hct MCV MCH MCHC RDW Plt Count MPV Neut % (Auto) Lymph % (Auto) Warren % (Auto) Eos % (Auto) Baso % (Auto) Absolute Neuts (auto) Absolute Lymphs (auto) Absolute Monos (auto) Absolute Eos (auto) Absolute Basos (auto) Absolute Nucleated RBC Nucleated RBC % Sodium Potassium Chloride Carbon Dioxide Anion Gap BUN Creatinine Est GFR ( Amer) Est GFR (Non-Af Amer) BUN/Creatinine Ratio Glucose POC Glucose (mg/dL) 110 H Hemoglobin A1c Calcium Troponin I Procalcitonin Microbiology and Other Data: Microbiology 01/26/18 18:04 Blood Venous Aerobic Blood Culture - Preliminary Staphylococcus Hominis 01/26/18 18:04 Blood Venous Anaerobic Blood Culture - Preliminary Staphylococcus Hominis 01/26/18 18:04 Blood Venous Blood MRSA/MSSA (PCR) - Final Mrsa Negative S.aureus Negative 01/26/18 13:45 Blood Venous Aerobic Blood Culture - Preliminary No Growth Day 1 01/26/18 13:45 Blood Venous Anaerobic Blood Culture - Preliminary No Growth Day 1 Diagnostic Imaging: CT ABDOMEN AND PELVIS Patient Name: JARVIS DRISCOLL SR Medical Record#: [id number] Ordering Physician: Colin Alcala MD Acct.#: [id number] : 1955 Age: 62 Sex: M Location: EMERGENCY DEPARTMENT Exam Date: 01/26/181558 ADM Status: REG ER Order Information: CT ABD/PEL W Accession Number: [id number] CPT: 78343 INDICATION: Abdominal pain COMPARISON: CT aortogram and runoff July 20, 2015 TECHNIQUE: Axial source images were obtained from the hemidiaphragms to the symphysis pubis following administration of oral and intravenous contrast. 100 mL Visipaque 320 was utilized. Coronal and sagittal reconstructed images were acquired. There is suboptimal contrast opacification due to difficulties with the IV. Lung bases: The lung bases are clear. There is prior cardiothoracic surgery and/ or stenting Liver: There is cirrhotic liver morphology. There are numerous hepatic lesions consistent with diffuse hepatic metastasis. These involve both right and left hepatic lobes. Similar lesions are confluent. The largest lesions measure approximately 4 cm Gallbladder: Cholecystectomy. Spleen: The spleen is mildly enlarged measuring 14 cm in diagonal dimension. There are no masses. Pancreas: No definitive focal pancreatic findings or ductal dilatation. There is extensive adjacent adenopathy is noted below. Adrenal glands: There is no evidence of adrenal mass. Kidneys: The kidneys are normal in size and position. There are prompt nephrograms and there is prompt excretion bilaterally. There is a 5 cm left renal cyst. There is also a left-sided parapelvic cyst There is no evidence of nephrolithiasis. Adenopathy: There is extensive adenopathy. There are multiple enlarged lymph nodes at the diaphragmatic hiatus. There is a confluent periportal mass measuring approximately 6 cm in greatest transverse dimension and there are multiple additional smaller peripancreatic and retroperitoneal lymph nodes extending to near the bifurcation. Fluid collections: There is a small amount of ascites and a right-sided diaphragmatic location anteriorly. Vessels:There are atherosclerotic changes involving the aorta and iliac vessels. There is no focal aneurysm. The IVC appears normal. GI tract: There are no acute CT bowel findings. There is no obstruction. There is circumferential mural thickening of the distal esophagus worrisome for esophageal neoplasia. There are no specific abnormalities the lower GI tract. Pelvic organs: The prostate and seminal vesicles appear normal Bladder: There are no bladder masses. Abdominal and pelvic soft tissues: The extraperitoneal abdominal and pelvic soft tissues appear normal.. This report is only to be considered final once signed by the Provider(s) as displayed in the "<Electronically Signed by >" field (s). Absence of a signature indicates the report is in a draft status and still needs to be finalized. In the event this document was created by someone other than the signing Provider, the individual initiating the document will be listed in the "Entered by:" or "Dictated by:" tavarez. 1 of 2 Osseous structures: There are advanced osteoarthritic changes of thoracolumbar spine. There is grade 2 anterolisthesis of L5-S1 with evidence of prior surgical fusion at L4-S1. Other: None IMPRESSION: 1. Cirrhotic liver morphology with extensive hepatic lesions consistent with diffuse hepatic metastasis. 2. Extensive infradiaphragmatic adenopathy as described. 3. Mild circumferential thickening of the distal esophagus suggests the possibility of esophageal neoplasia. 4. Mild splenomegaly. 5. Small amount of ascites. <Electronically signed by Raymundo Womack MD in [place]> 01/26/181936 Dictated By: Raymundo Womack MD Dictated Date/Time: 01/26/181936 Transcribed Date/Time: 01/26/181912 Copy to: Patient Name: JARVIS DRISCOLL SR Medical Record#: [id number] Ordering Physician: Jorge Kimbrough MD Acct.#: [id number] : 1955 Age: 62 Sex: M Location: [address] [place] [address] MEDICAL/TELEMETRY Exam Date: 01/29/18 1300 ADM Status: ADM IN Order Information: MRI BRAIN W/WO Accession Number: [id number] CPT: 83144 HISTORY: rule out brain mets COMPARISONS: Head CT dated January 28, 2018 TECHNIQUE: The following sequences were obtained of the head: Sagittal T1- weighted images, axial T2-weighted images, axial FLAIR images, axial susceptibility weighted images, axial T1-weighted images, thin section sagittal T2-weighted images and sagittal and coronal T1-weighted images were obtained through the sella. Additionally, axial diffusion-weighted images were obtained with calculated apparent diffusion coefficients. Additionally, axial T1-weighted images were obtained through the brain after contrast enhancement with a gadolinium-based intravenous contrast agent. Thin section coronal and sagittal T1-weighted images were obtained through the sella, with coronal dynamic enhanced scans through the sella. FINDINGS: HEMORRHAGE/INFARCT: There is no hemorrhage or acute infarct. MASSES/SHIFT: There is no mass or shift. EXTRA-AXIAL SPACES/MENINGES: There are no extra-axial fluid collections. SULCI AND VENTRICLES: The sulci and ventricles are normal in size and position for the patient's stated age. CEREBRUM: There is elevated T2/FLAIR signal within the periventricular white matter without enhancement. BRAINSTEM: There is elevated T2/FLAIR signal within the pontine white matter, without enhancement. CEREBELLUM: There are no focal parenchymal abnormalities. The cerebellar tonsils are normal in size and position. SELLA: The sella is normal. PINEAL: The pineal region is clear. CP ANGLE/TEMPORAL BONES: The labyrinthine structures are grossly normal. VESSELS: Normal flow-voids are noted within the visualized vertebral vasculature. DIFFUSION ABNORMALITIES: There are no diffusion abnormalities. PARANASAL SINUSES/MASTOIDS: The paranasal sinuses are clear. There are small bilateral mastoid effusions. ORBITS: The orbits are unremarkable. BONES AND SOFT TISSUE: No bone or soft tissue abnormalities are noted. OTHER: There is no abnormal enhancement. IMPRESSION: 1. ELEVATED T2/FLAIR SIGNAL WITHIN THE PERIVENTRICULAR, SUBCORTICAL, AND PONTINE WHITE MATTER, NONSPECIFIC BUT SUGGESTIVE OF CHRONIC SMALL VESSEL ISCHEMIC CHANGE. 2. SMALL BILATERAL MASTOID EFFUSIONS. 3. NO ABNORMAL ENHANCEMENT, VASOGENIC EDEMA, OR SPACE-OCCUPYING LESION TO SUGGEST METASTATIC DISEASE TO THE BRAIN. 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 Ordonez - Gross appearance of esophagus shows friable, bloody tissue, congruent with neoplasm with official pathology report showing adenocarcinoma - Oncology consult appreciated, would benefit from radiation, even if palliative, poor prognosis (2) Hepatic metastases Comment: - Multiple liver lesions with mediastinal lymphadenopathy and rising ammonia levels - Oncology following - Received one dose Elitek for suspected tumor lysis, although this is less likely and patient is not on cytotoxic regimen. Will defer to oncology for further management (3) Bacteremia Comment: - Positive for staph hominus and staph warneri on 01/26 and 01/28 with leukocytosis. - Appreciate ID consult - recommended DC abx suspects contaminant (4) Malnutrition Comment: - Severe protein calorie malnutrition - check prealbumin in am (5) Lethargy Comment: - Improving - MRI brain negative for mets - Likley toxic metabolic/hepatic encephalopathy in setting of liver mets and positive blood cultures - Per neuro, less likely CVA or paraneoplastic syndrome - Mentation improved with lactulose, will continue (6) STEMI (ST elevation myocardial infarction) Comment: metoprolol succinate 100 mg daily and ASA 81 mg daily subacute inferior infarction. Q waves. symptoms last month and downtrending troponins. atorvastatin 40mg initially on heparin gtt for ~6 hours on admission but they were unable to obtain monitoring aPTT so it was stopped. PerDr. Mireles - heparin gtt not clearly indicated at this time given his STEMI is likely subacute in recent weeks likely. - Discussed with Dr. Beck today - medical management only (7) Diabetes Comment: - Continue lispro with Sliding scale (8) HTN (hypertension) Comment: - Stable on ramipril and BB (9) History of COPD Comment: - current tobacco abuse - Not in exacerbation - Albuterol PRN (10) DNR (do not resuscitate) discussion Comment: (11) DVT prophylaxis Comment: HSQ Status and Disposition: Inpatient, prognosis guarded. Son is leaning towards palliative radiation but is unclear and would like to bring the patient home, however now the sons girlfriend is hesitant to bring the patient to their home. Patient would like to discuss with Oncologist tomorrow as they have questions. Case management following.
[2018-02-01 11:30] LABS: ABS Basophils 0.1 10^3/ul (0-0.2); ABS Eosinophils 0.1 10^3/ul (0-0.6); ABS Lymphocytes 0.6 10^3/ul (1.0-4.8); ABS Monocytes 0.7 10^3/ul (0-0.8); ABS Neutrophils 9.8 10^3/ul (1.5-7.7); ABS Nucleated RBC 0 10^3/ul; Eosinophil % 0.6 % (0-6); Hematocrit 36 % (42-52); Hemoglobin 11.9 g/dl (14.0-18.0); Lymphocyte % 5.7 % (25-47); Mean Corpuscular HGB Conc 34 g/dl (31-36); Mean Corpuscular Hemoglobin 28 pg (27-31); Mean Corpuscular Volume 83 fL (80-94); Mean Platelet Volume 7.7 um3 (7.4-10.4); Nucleated Red Blood Cells % 0; Platelet Count 264 10^3/ul (150-450); Red Blood Count 4.26 10^6/ul (4.00-5.40); Red Cell Distribution Width 16 % (10.5-15); White Blood Count 11.3 10^3/ul (3.5-10.8)
[2018-02-01 11:46] LABS: EGFR Non-African American 67.6 (>60)
--- NOTE | 2018-02-01 20:13 | CONS ---
CONSULTATION REPORT: DATE OF CONSULT: 02/01/18 REQUESTING PHYSICIAN: Mell Caldwell NP CONSULTING SERVICE: Infectious Disease. REASON FOR CONSULTATION: Question of bacteremia, leukocytosis. IMPRESSION: 1. Admitted with encephalopathy, which is improving, leukocytosis and vomiting with meals. Found to have metastatic esophageal adenocarcinoma. 2. At admission, he had 4 bottles of blood cultures 2 of 4 growing Staph hominis from one draw. Followup cultures before antibiotics 1/6 growing Staph warneri and 1/6 growing Staph hominis. Taken together, these are contaminants. He has had no fever. His leukocytosis has been intermittent. He has had 2 negative procalcitonins. CRP is elevated into 70 which is not surprising given his underlying malignancy. 3. Peripheral vascular disease status post right [id number] amputation and left great toe amputation. 4. Type 2 diabetes. 5. Coronary artery disease and history of PCI. RECOMMENDATION: We will stop his Ancef and monitor for fever. HISTORY OF PRESENT ILLNESS: This is a 62-year-old man admitted with about a month of vomiting whenever he ate and per his family change in mental status including some confusion at home. He had no fever, chills or sweats that he or they can recall. He has had no diarrhea. He had focal abdominal pain. No back or joint pain. He had blood cultures taken on admission, that grew 2/4 bottles of Staph hominis on the and the he had a dose of vancomycin after 6 bottles taken that morning, 1/6 positive for Staph warneri and 1/6 positive Staph hominis. He was continued on vancomycin and switched to Ancef. He has had no difficulties with the antibiotics. He has no back or joint pain. He has no prosthetic material present. He had an EGD here that showed esophageal cancer. He has metastatic disease in the liver as well as cirrhosis. PAST MEDICAL HISTORY: 1. Type 2 diabetes. 2. Peripheral vascular disease and history of revascularization attempt. 3. Right [id number]-ilag amputation and left great toe amputation. 4. Status post cholecystectomy. 5. Dyslipidemia. 6. Coronary artery disease and history of PCI. 7. Hypertension. 8. Spine surgery. ALLERGIES: No known allergies. MEDICATIONS: 1. Tylenol. 2. Albuterol. 3. Lipitor. 4. Famotidine. 5. Heparin subcutaneous injections. 6. Cefazolin 2 g IV every 8 hours. 7. Lactulose. 8. Metoprolol. 9. Nitroglycerin. SOCIAL HISTORY: He lives with his son. He smokes quarter pack a day. He is a nondrinker. No injection drugs. He has 2 children. FAMILY HISTORY: Mother at age 70 of unknown causes. Father diseased at 81 of possibly pancreatic cancer. REVIEW OF SYSTEMS: All negative except as noted above in the history of present illness. PHYSICAL EXAM: Vital Signs: Temperature 36.6, heart rate 82, respiratory rate 17, blood pressure 146/74, oxygen 100% on room air. In general, he is not in distress or diaphoretic. Neurologic: He awakens to voice. He answers questions appropriately and follows commands. He does drift off to sleep easily but is awake at each time. HEENT: There is no conjunctival hemorrhage. Oropharynx is edentulous. His tongue is dry. There is no thrush. Neck is supple without mass. Heart: Regular rate and rhythm without murmurs, rubs or gallops. Lungs: Clear to auscultation bilaterally. Abdomen is soft, nontender , nondistended. Bowel sounds present. Skin: There is scattered nonblanching erythematous macules on both forearms. Musculoskeletal: No spinal tenderness to palpation or joint synovitis. His right [id number]-[id number] amputation site is well healed and the left great toe amputation site is well healed. LABORATORY DATA: White blood cell count 10, hemoglobin 12, platelets 181, creatinine 0.7. ALT was 18, bilirubin 1.4. Please see impression and recommendations as outlined above, which I have discussed with Mell Caldwell NP. Thank you for asking me to see Mr. Driscoll in consultation. [id number]/[facility] #: [id number] [facility] CENTERAislinn
[2018-02-01] MEDS: Atorvastatin* 40 MG TAB PO SCH (20:54)
[2018-02-02] MEDS: Heparin VIAL(*) 5000 UNITS/ML VIAL (FIVE THOUSAND) SUBCUT SCH ×3 (05:33→21:41)
[2018-02-02 05:45] LABS: ABS Basophils 0.1 10^3/ul (0-0.2); ABS Eosinophils 0.1 10^3/ul (0-0.6); ABS Lymphocytes 0.7 10^3/ul (1.0-4.8); ABS Monocytes 0.9 10^3/ul (0-0.8); ABS Neutrophils 10.2 10^3/ul (1.5-7.7); ABS Nucleated RBC 0 10^3/ul; Eosinophil % 0.8 % (0-6); Hematocrit 36 % (42-52); Hemoglobin 12.2 g/dl (14.0-18.0); Lymphocyte % 5.8 % (25-47); Mean Corpuscular HGB Conc 34 g/dl (31-36); Mean Corpuscular Hemoglobin 28 pg (27-31); Mean Corpuscular Volume 84 fL (80-94); Mean Platelet Volume 7.8 um3 (7.4-10.4); Nucleated Red Blood Cells % 0; Platelet Count 276 10^3/ul (150-450); Red Blood Count 4.33 10^6/ul (4.00-5.40); Red Cell Distribution Width 16 % (10.5-15); White Blood Count 11.9 10^3/ul (3.5-10.8)
[2018-02-02 06:01] LABS: EGFR Non-African American 74.6 (>60)
[2018-02-02] MEDS: Insulin LISPRO* 1 UNITS UNIT SUBCUT SCH ×4 (09:03→21:31)
[2018-02-02] MEDS: Famotidine TAB* 20 MG PO SCH ×2 (09:16→21:41)
[2018-02-02] MEDS: Aspirin 81 mg CHEW TAB* 81 MG TAB.CHEW PO SCH (09:16)
[2018-02-02] MEDS: Metoprolol Succinate XL TAB* 100 MG PO SCH (09:16)
[2018-02-02] MEDS: Nystatin TOP POWDER* 15 GM BTL TOPICAL SCH ×3 (09:39→21:41)
--- NOTE | 2018-02-02 10:54 | PN ---
Subjective Date of Service: 02/02/18 Interval History: Mr. Driscoll is awake upon exam and reports feeling "so-so." His son and daughter-in -law are at bedside. They report that he had good PO intake yesterday, but has not taken in anything today. Pt states that it is easier to swallow thin liquids , and thicker liquids or solids are painful to swallow. He is only somewhat involved in the conversation and needs prompting to participate. When he does participate, he only responds 1-2 word answers which son states is typical for him. Family is still interested in taking him home and are not open to placement options. Son states that he needs the weekend to prepare the house in order to take him home, but they state they will "do the best we can" to manage his care at home and that they would like to pursue this option before considering any placement. 1200: After discussion with Patent Legal Assistant, family is agreeable to [facility]. Family History: Unchanged from Admission Social History: Unchanged from Admission Past Medical History: Unchanged from Admission Objective Active Medications: Acetaminophen (Tylenol Tab*) 650 mg PO Q4H PRN PRN Reason: PAIN Albuterol (Ventolin Hfa Inhaler*) 2 puff INH Q6H PRN PRN Reason: SOB/WHEEZING Albuterol/Ipratropium (Duoneb (Albuterol 2.5 Mg/Ipratropium 0.5 Mg)) 1 neb INH Q6H PRN PRN Reason: SOB/WHEEZING Aspirin (Aspirin 81 Mg Chew Tab*) 81 mg PO DAILY KWESI Atorvastatin Calcium (Lipitor*) 40 mg PO BEDTIME KWESI Dextrose (D50w Syringe 50 Ml*) 12.5 gm IV PUSH .FOR FS < 60 - SS PRN PRN Reason: FS < 60 Famotidine (Pepcid Tab*) 40 mg PO BID KWESI Heparin Sodium (Porcine) (Heparin Vial(*)) 5,000 units SUBCUT Q8HR KWESI Insulin Human Lispro (Humalog*) 0 units SUBCUT ACHS KWESI; Protocol Lactulose (Lactulose*) 30 ml PO TID KWESI Lidocaine (Xylocaine 2% Viscous*) 15 ml SWISH SPIT TID PRN PRN Reason: pain with swallowing Metoprolol Succinate (Toprol Xl Tab*) 100 mg PO DAILY KWESI Nitroglycerin (Nitroglycerin Tab 0.4 Mg*) 0.4 mg SL Q5M PRN PRN Reason: ANGINA Nystatin (Nystatin Top Powder*) 1 applic TOPICAL TID KWESI Ondansetron HCl (Zofran Inj*) 4 mg IV Q6H PRN PRN Reason: NAUSEA Vital Signs - 8 hr 02/02/18 02/02/18 02/02/18 03:17 07:23 07:47 Temperature 97.9 F 97.5 F Pulse Rate 99 107 Respiratory 20 16 12 Rate Blood Pressure 132/72 129/70 (mmHg) O2 Sat by Pulse 96 97 Oximetry Oxygen Devices in Use Now: None Appearance: Male sitting in bed in NAD. Eyes: No Scleral Icterus, PERRLA Ears/Nose/Mouth/Throat: Mucous Membranes Moist Neck: NL Appearance and Movements; NL JVP Respiratory: Symmetrical Chest Expansion and Respiratory Effort, Clear to Auscultation Cardiovascular: NL Sounds; No Murmurs; No JVD, RRR, No Edema Abdominal: NL Sounds; No Tenderness; No Distention Extremities: No Edema, - - L foot is cool to the touch, pulses 1+ Neurological: - - Alert, somnolent Lines/Tubes/Other Access: Clean, Dry and Intact Peripheral IV Nutrition: Taking PO's - Nutrition: Malnutrition Diagnosis/Plan Malnutrition Assessment by Registered Dietitian: Malnutrition Assessment Clinical Characteristics Acute,Severe Malnutrition Assessment: < or = 50% estimated needs x > or = 5 days Criteria severe wt loss: 23% x 3 weeks Malnutrition Assessment: Will add nutritional supplement when diet Interventions advances (likely Glucerna with meals) Malnutrition Assessment: Goals 1. As able, advance diet. 2. Pt will tolerate diet advancement w/o additional GI s/sx (vomiting, abd. pain) 3. Ultimately, adequate nutrition to maintain lean body mass and hydration w/o promoting additional undesired wt loss 4. Electrolytes WNL s/p repletion Result Diagrams: 02/02/18 05:27 02/02/18 05:27 Assess/Plan/Problems-Billing Assessment: This is a 62 yo male PMH CAD s/p stents (circ, LAD, RCA), IDDMT2, PVD s/p right BKA, HLD, current smoker p/w Inferior Q waves and ST elevations, downtrending troponins, 1 month epigastric/lower chest pain and altered mental status found to have NEW metastatic esophageal adenocarcinoma with mets to the liver. - Patient Problems (1) Esophageal adenocarcinoma Current Visit: Yes Status: Acute Code(s): C15.9 - MALIGNANT NEOPLASM OF ESOPHAGUS, UNSPECIFIED SNOMED Code(s): 165351030 Comment: - s/p EGD with biopsy 01/[address] Ordonez - Gross appearance of esophagus shows friable, bloody tissue, congruent with neoplasm with official pathology report showing adenocarcinoma - Oncology consult appreciated, would benefit from radiation, even if palliative , poor prognosis - Pt and family interested in pursuing tx (2) Hepatic metastases Current Visit: Yes Status: Acute Code(s): C78.7 - SECONDARY MALIG NEOPLASM OF LIVER AND INTRAHEPATIC BILE DUCT SNOMED Code(s): 13254701 Comment: - Multiple liver lesions with mediastinal lymphadenopathy and rising ammonia levels - Oncology following - Received one dose Elitek for suspected tumor lysis, although this is less likely and patient is not on cytotoxic regimen, defer to oncology for further management (3) STEMI (ST elevation myocardial infarction) Current Visit: Yes Status: Acute Code(s): I21.3 - ST ELEVATION (STEMI) MYOCARDIAL INFARCTION OF [facility] SITE SNOMED Code(s): 747015656 Comment: - Metoprolol, ASA, and atorvastatin - Subacute inferior infarction with Q waves, symptoms last month and downtrending troponins - Initially on heparin gtt for ~6 hours on admission but they were unable to obtain monitoring aPTT so it was stopped. Per Dr. Mireles - heparin gtt not clearly indicated at this time given his STEMI is likely subacute in recent weeks likely - Per Dr. Beck medical management only (4) Bacteremia Current Visit: Yes Status: Acute Code(s): R78.81 - BACTEREMIA SNOMED Code( s): 1789349 Comment: - Positive for staph hominus and staph warneri on 01/26 and 01/28 with leukocytosis. - Likely contaminant (5) Diabetes Current Visit: Yes Status: Acute Code(s): E11.9 - TYPE 2 DIABETES MELLITUS WITHOUT COMPLICATIONS SNOMED Code(s): 11701408 Comment: - Continue lispro with sliding scale (6) Lethargy Current Visit: Yes Status: Acute Code(s): R53.83 - OTHER FATIGUE SNOMED Code(s): 363234472 Comment: - Improving - MRI brain negative for mets - Likley toxic metabolic/hepatic encephalopathy in setting of liver mets and positive blood cultures - Per neuro, less likely CVA or paraneoplastic syndrome - Mentation improved with lactulose, will continue (7) Malnutrition Current Visit: Yes Status: Acute Code(s): E46 - UNSPECIFIED PROTEIN-CALORIE MALNUTRITION SNOMED Code(s): 89522080 Comment: - Severe protein calorie malnutrition - Encouraged PO intake including Ensure (8) HTN (hypertension) Current Visit: Yes Status: Chronic Code(s): I10 - ESSENTIAL (PRIMARY) HYPERTENSION SNOMED Code(s): 56938984 Comment: - Stable on ramipril and metoprolol (9) History of COPD Current Visit: Yes Status: Chronic Priority: Medium Code(s): Z87.09 - PERSONAL HISTORY OF OTHER DISEASES OF THE RESPIRATORY SYSTEM SNOMED Code(s): 411317986 Comment: - current tobacco abuse - Not in exacerbation - Albuterol PRN (10) DNR (do not resuscitate) discussion Current Visit: Yes Status: Acute Code(s): Z71.89 - OTHER SPECIFIED COUNSELING SNOMED Code(s): 847325530 Comment: (11) DVT prophylaxis Current Visit: Yes Status: Acute Code(s): HFS9760 - SNOMED Code(s): 650887124 Comment: - SQ heparin Status and Disposition: Inpatient, prognosis guarded. pt and family leaning towards palliative radiation. Patient would like to discuss with Oncologist as they have questions. Agreeable to [facility] when bed available.
[2018-02-02] MEDS: Atorvastatin* 40 MG TAB PO SCH (21:41)
[2018-02-03] MEDS: Heparin VIAL(*) 5000 UNITS/ML VIAL (FIVE THOUSAND) SUBCUT SCH ×3 (05:59→21:51)
[2018-02-03] MEDS: Insulin LISPRO* 1 UNITS UNIT SUBCUT SCH ×4 (07:23→21:50)
--- NOTE | 2018-02-03 08:49 | PN ---
Subjective Date of Service: 02/03/18 Interval History: Mr. Driscoll is more awake today upon examination. Nursing reports that he did not eat anything yesterday and only took in a small amount of wilian shereen. He continues to refuse to get OOB. He initially was answering questions and more involved in the conversation about his care until I asked him about his goals going forward. He was not able to answer whether or not he wanted to pursue treatment and would not elaborate further about his PO intake or willingness to participate in his own care. I did speak separately with his son, with pt's permission, about the possibility of palliative/hospice care. The son expressed interest in a consultation, and pt was agreeable to that as well. Family History: Unchanged from Admission Social History: Unchanged from Admission Past Medical History: Unchanged from Admission Objective Active Medications: Acetaminophen (Tylenol Tab*) 650 mg PO Q4H PRN Albuterol (Ventolin Hfa Inhaler*) 2 puff INH Q6H PRN Albuterol/Ipratropium (Duoneb (Albuterol 2.5 Mg/Ipratropium 0.5 Mg)) 1 neb INH Q6H PRN Aspirin (Aspirin 81 Mg Chew Tab*) 81 mg PO DAILY KWESI Atorvastatin Calcium (Lipitor*) 40 mg PO BEDTIME KWESI Dextrose (D50w Syringe 50 Ml*) 12.5 gm IV PUSH .FOR FS < 60 - SS PRN Famotidine (Pepcid Tab*) 40 mg PO BID SCHg Heparin Sodium (Porcine) (Heparin Vial(*)) 5,000 units SUBCUT Q8HR KWESI Insulin Human Lispro (Humalog*) 0 units SUBCUT ACHS KWESI; Protocol Lactulose (Lactulose*) 30 ml PO TID KWESI Lidocaine (Xylocaine 2% Viscous*) 15 ml SWISH SPIT TID PRN Metoprolol Succinate (Toprol Xl Tab*) 100 mg PO DAILY KWESI Nitroglycerin (Nitroglycerin Tab 0.4 Mg*) 0.4 mg SL Q5M PRN Nystatin (Nystatin Top Powder*) 1 applic TOPICAL TID KWESI Ondansetron HCl (Zofran Inj*) 4 mg IV Q6H PRN Vital Signs - 8 hr 02/03/18 02/03/18 02/03/18 03:47 07:21 07:25 Temperature 98.5 F 97.9 F Pulse Rate 94 98 Respiratory 20 20 20 Rate Blood Pressure 150/73 145/66 (mmHg) O2 Sat by Pulse 98 94 Oximetry 02/03/18 07:28 Temperature Pulse Rate Respiratory 20 Rate Blood Pressure (mmHg) O2 Sat by Pulse Oximetry Oxygen Devices in Use Now: None Appearance: Middle aged male laying in bed in NAD. Somnolent Eyes: No Scleral Icterus, PERRLA Ears/Nose/Mouth/Throat: Mucous Membranes Moist Neck: NL Appearance and Movements; NL JVP, Trachea Midline Respiratory: Symmetrical Chest Expansion and Respiratory Effort, Clear to Auscultation Cardiovascular: NL Sounds; No Murmurs; No JVD, RRR, No Edema, - - Left foot pedal pulse 1+ Abdominal: NL Sounds; No Tenderness; No Distention, - Extremities: No Edema Neurological: Alert and Oriented x 3 Lines/Tubes/Other Access: Clean, Dry and Intact Peripheral IV Nutrition: Taking PO's Result Diagrams: 02/03/18 08:50 02/03/18 08:50 Assess/Plan/Problems-Billing Assessment: This is a 62 yo male PMH CAD s/p stents (circ, LAD, RCA), IDDMT2, PVD s/p right BKA, HLD, current smoker p/w Inferior Q waves and ST elevations, downtrending troponins, 1 month epigastric/lower chest pain and altered mental status found to have NEW metastatic esophageal adenocarcinoma with mets to the liver. - Patient Problems (1) Esophageal adenocarcinoma Current Visit: Yes Status: Acute Code(s): C15.9 - MALIGNANT NEOPLASM OF ESOPHAGUS, UNSPECIFIED SNOMED Code(s): 995784799 Comment: - s/p EGD with biopsy 01/[address] Ordonez - Gross appearance of esophagus shows friable, bloody tissue, congruent with neoplasm with official pathology report showing adenocarcinoma - Oncology consult appreciated, would benefit from radiation, even if palliative , poor prognosis - Pt and family interested in pursuing tx and/or palliative care (2) Hepatic metastases Current Visit: Yes Status: Acute Priority: High Code(s): C78.7 - SECONDARY MALIG NEOPLASM OF LIVER AND INTRAHEPATIC BILE DUCT SNOMED Code(s): 48916844 Comment: - Multiple liver lesions with mediastinal lymphadenopathy and rising ammonia levels - Oncology following - Received one dose Elitek for suspected tumor lysis, although this is less likely and patient is not on cytotoxic regimen, defer to oncology for further management (3) STEMI (ST elevation myocardial infarction) Current Visit: Yes Status: Acute Priority: High Code(s): I21.3 - ST ELEVATION (STEMI) MYOCARDIAL INFARCTION OF [facility] SITE SNOMED Code(s): 655608199 Comment: - Metoprolol, ASA, and atorvastatin - Subacute inferior infarction with Q waves, symptoms last month and downtrending troponins - Initially on heparin gtt for ~6 hours on admission but they were unable to obtain monitoring aPTT so it was stopped. Per Dr. Mireles - heparin gtt not clearly indicated at this time given his STEMI is likely subacute in recent weeks likely - Per Dr. Beck medical management only (4) Bacteremia Current Visit: Yes Status: Acute Code(s): R78.81 - BACTEREMIA SNOMED Code( s): 3741914 Comment: - Positive for staph hominus and staph warneri on 01/26 and 01/28 with leukocytosis. - Likely contaminant (5) Lethargy Current Visit: Yes Status: Acute Code(s): R53.83 - OTHER FATIGUE SNOMED Code(s): 893860847 Comment: - Improving - MRI brain negative for mets - Likley toxic metabolic/hepatic encephalopathy in setting of liver mets and positive blood cultures - Per neuro, less likely CVA or paraneoplastic syndrome - Mentation improved with lactulose, will continue (6) Diabetes Current Visit: Yes Status: Chronic Priority: High Code(s): E11.9 - TYPE 2 DIABETES MELLITUS WITHOUT COMPLICATIONS SNOMED Code(s): 77257263 Comment: - Continue lispro with sliding scale (7) Malnutrition Current Visit: Yes Status: Chronic Priority: High Code(s): E46 - UNSPECIFIED PROTEIN-CALORIE MALNUTRITION SNOMED Code(s): 35788820 Comment: - Severe protein calorie malnutrition - Encouraged PO intake including Ensure (8) HTN (hypertension) Current Visit: Yes Status: Chronic Priority: High Code(s): I10 - ESSENTIAL (PRIMARY) HYPERTENSION SNOMED Code(s): 96371554 Comment: - Stable on ramipril and metoprolol (9) History of COPD Current Visit: Yes Status: Chronic Priority: Medium Code(s): Z87.09 - PERSONAL HISTORY OF OTHER DISEASES OF THE RESPIRATORY SYSTEM SNOMED Code(s): 877186170 Comment: - Current tobacco abuse - Not in exacerbation - Albuterol PRN (10) DNR (do not resuscitate) discussion Current Visit: Yes Status: Acute Code(s): Z71.89 - OTHER SPECIFIED COUNSELING SNOMED Code(s): 586453570 Comment: (11) DVT prophylaxis Current Visit: Yes Status: Acute Code(s): GTK3203 - SNOMED Code(s): 147361797 Comment: - SQ heparin Status and Disposition: Inpatient, prognosis guarded. Patient and family interested in treatment, though agreeable to palliative care consult. [facility] when bed available, likely early in the week. Attending: Sameer Bryant
[2018-02-03] MEDS: Aspirin 81 mg CHEW TAB* 81 MG TAB.CHEW PO SCH (08:51)
[2018-02-03] MEDS: Metoprolol Succinate XL TAB* 100 MG PO SCH (08:52)
[2018-02-03] MEDS: Famotidine TAB* 20 MG PO SCH ×2 (08:53→21:52)
[2018-02-03] MEDS: Nystatin TOP POWDER* 15 GM BTL TOPICAL SCH ×3 (08:54→21:58)
[2018-02-03 09:08] LABS: Hematocrit 36 % (42-52); Hemoglobin 12.6 g/dl (14.0-18.0); Mean Corpuscular HGB Conc 35 g/dl (31-36); Mean Corpuscular Hemoglobin 29 pg (27-31); Mean Corpuscular Volume 83 fL (80-94); Mean Platelet Volume 7.7 um3 (7.4-10.4); Platelet Count 311 10^3/ul (150-450); Red Blood Count 4.37 10^6/ul (4.00-5.40); Red Cell Distribution Width 16 % (10.5-15); White Blood Count 14.2 10^3/ul (3.5-10.8)
[2018-02-03 09:25] LABS: EGFR Non-African American 86.3 (>60)
[2018-02-03] MEDS: Atorvastatin* 40 MG TAB PO SCH (21:52)
[2018-02-04] MEDS: Heparin VIAL(*) 5000 UNITS/ML VIAL (FIVE THOUSAND) SUBCUT SCH ×3 (05:38→21:51)
--- NOTE | 2018-02-04 08:36 | PN ---
Subjective Date of Service: 02/04/18 Interval History: Patient minimally responsive this morning. Awakens from sleep and will state his name and that he feels "fine." He is sleeping and does not appear to be in any acute distress. Family History: Unchanged from Admission Social History: Unchanged from Admission Past Medical History: Unchanged from Admission Objective Active Medications: Acetaminophen (Tylenol Tab*) 650 mg PO Q4H PRN Albuterol (Ventolin Hfa Inhaler*) 2 puff INH Q6H PRN Albuterol/Ipratropium (Duoneb (Albuterol 2.5 Mg/Ipratropium 0.5 Mg)) 1 neb INH Q6H PRN Aspirin (Aspirin 81 Mg Chew Tab*) 81 mg PO DAILY KWESI Atorvastatin Calcium (Lipitor*) 40 mg PO BEDTIME KWESI Dextrose (D50w Syringe 50 Ml*) 12.5 gm IV PUSH .FOR FS < 60 - SS PRN Famotidine (Pepcid Tab*) 40 mg PO BID KWESI Heparin Sodium (Porcine) (Heparin Vial(*)) 5,000 units SUBCUT Q8HR KWESI Insulin Human Lispro (Humalog*) 0 units SUBCUT ACHS KWESI; Protocol Lactulose (Lactulose*) 30 ml PO TID KWESI Lidocaine (Xylocaine 2% Viscous*) 15 ml SWISH SPIT TID PRN Metoprolol Succinate (Toprol Xl Tab*) 100 mg PO DAILY KWESI Nitroglycerin (Nitroglycerin Tab 0.4 Mg*) 0.4 mg SL Q5M PRN Nystatin (Nystatin Top Powder*) 1 applic TOPICAL TID KWESI Ondansetron HCl (Zofran Inj*) 4 mg IV Q6H PRN Vital Signs: Temp Pulse Resp BP Pulse Ox 98.1 F 117 24 140/75 97 02/04/18 07:33 02/04/18 07:33 02/04/18 07:33 02/04/18 07:33 02/04/18 07:33 Oxygen Devices in Use Now: None Appearance: Male lying in bed in NAD Eyes: No Scleral Icterus Ears/Nose/Mouth/Throat: Mucous Membranes Moist Neck: Trachea Midline Respiratory: Symmetrical Chest Expansion and Respiratory Effort, Clear to Auscultation Cardiovascular: NL Sounds; No Murmurs; No JVD, No Edema Abdominal: NL Sounds; No Tenderness; No Distention Lymphatic: No Cervical Adenopathy Extremities: No Edema, - - Right BKA and Left great toe amputation Skin: No Rash or Ulcers Neurological: - - Sleeping, awakens minimally to voice and answers questions appropriately - Nutrition: Malnutrition Diagnosis/Plan Malnutrition Assessment by Registered Dietitian: Malnutrition Assessment Clinical Characteristics Acute,Severe Malnutrition Assessment: < or = 50% estimated needs x > or = 5 days Criteria severe wt loss: 23% x 3 weeks Malnutrition Assessment: Will add nutritional supplement when diet Interventions advances (likely Glucerna with meals) Malnutrition Assessment: Goals 1. As able, advance diet. 2. Pt will tolerate diet advancement w/o additional GI s/sx (vomiting, abd. pain) 3. Ultimately, adequate nutrition to maintain lean body mass and hydration w/o promoting additional undesired wt loss 4. Electrolytes WNL s/p repletion Result Diagrams: 02/03/18 08:50 02/03/18 08:50 Assess/Plan/Problems-Billing Assessment: Mr. Driscoll is a 62 yo male PMH CAD s/p stents, IDDMT2, and PVD with R BKA who is a current smoker p/w 1 month epigastric/chest pain and altered mental status found to have subacute NSTEMI and NEW metastatic esophageal adenocarcinoma with mets to the liver. - Patient Problems (1) Esophageal adenocarcinoma Comment: - s/p EGD with biopsy 01/[address] Ordonez - Gross appearance of esophagus shows friable, bloody tissue, congruent with neoplasm with official pathology report showing adenocarcinoma - Oncology consult appreciated, would benefit from radiation, even if palliative , poor prognosis - Pt and family interested in pursuing tx and/or palliative care (2) Hepatic metastases Comment: - Multiple liver lesions with mediastinal lymphadenopathy and rising ammonia levels - Oncology following - Received one dose Elitek for suspected tumor lysis, although this is less likely and patient is not on cytotoxic regimen, defer to oncology for further management (3) Lethargy Comment: - Lethargic this AM - MRI brain negative for mets. Likley toxic metabolic/hepatic encephalopathy in setting of liver mets. Per neuro, less likely CVA or paraneoplastic syndrome. - Ammonia normal, continue lactulose. (4) STEMI (ST elevation myocardial infarction) Comment: - Metoprolol, ASA, and atorvastatin - Subacute inferior infarction with Q waves, symptoms last month and downtrending troponins - Per Dr. Stefek - heparin gtt not clearly indicated at this time given his STEMI is likely subacute in recent weeks likely . Per Dr. Beck medical management only. (5) Bacteremia Comment: - Positive for staph hominus and staph warneri on 01/26 and 01/28 with leukocytosis. - Appreciate ID consult, likely contaminant (6) Hx of type 2 diabetes mellitus Comment: - BGs well controlled. - High dose home lantus and lispro held, as well as metformin. - Continue BGs qAC with lispro SSI coverage for meals. (7) History of COPD Comment: - Current tobacco abuse - Not in exacerbation - Albuterol PRN (8) Malnutrition Comment: - Severe protein calorie malnutrition - Encouraged PO intake including Ensure (9) History of hypertension Comment: - SBP 140s. - Continue metoprolol. (10) DVT prophylaxis Comment: - SQ heparin (11) DNR (do not resuscitate) discussion Comment: Status and Disposition: Inpatient, prognosis guarded. Patient and family interested in treatment, though agreeable to palliative care consult. [facility] when bed available, likely early in the week.
[2018-02-04] MEDS: Insulin LISPRO* 1 UNITS UNIT SUBCUT SCH ×4 (09:21→21:39)
[2018-02-04] MEDS: Aspirin 81 mg CHEW TAB* 81 MG TAB.CHEW PO SCH (11:10)
[2018-02-04] MEDS: Famotidine TAB* 20 MG PO SCH ×2 (11:10→21:38)
[2018-02-04] MEDS: Metoprolol Succinate XL TAB* 100 MG PO SCH (11:10)
[2018-02-04] MEDS: Nystatin TOP POWDER* 15 GM BTL TOPICAL SCH ×3 (11:41→21:48)
[2018-02-04 11:45] LABS: Hematocrit 38 % (42-52); Hemoglobin 12.8 g/dl (14.0-18.0); Mean Corpuscular HGB Conc 34 g/dl (31-36); Mean Corpuscular Hemoglobin 28 pg (27-31); Mean Corpuscular Volume 84 fL (80-94); Mean Platelet Volume 7.6 um3 (7.4-10.4); Platelet Count 369 10^3/ul (150-450); Red Blood Count 4.54 10^6/ul (4.00-5.40); Red Cell Distribution Width 16 % (10.5-15); White Blood Count 15.8 10^3/ul (3.5-10.8)
[2018-02-04 11:48] LABS: ABS Basophils 0 10^3/ul (0-0.2); ABS Eosinophils 0 10^3/ul (0-0.6); ABS Lymphocytes 0.7 10^3/ul (1.0-4.8); ABS Monocytes 0.8 10^3/ul (0-0.8); ABS Neutrophils 14.3 10^3/ul (1.5-7.7); ABS Nucleated RBC 0 10^3/ul; Eosinophil % 0.1 % (0-6); Lymphocyte % 4.4 % (25-47); Nucleated Red Blood Cells % 0.1
[2018-02-04 12:02] LABS: EGFR Non-African American 81.1 (>60)
[2018-02-04] MEDS ORDERED: Lactulose 300 ML for PR* 10 GM/15 ML BTL PR SCH (13:00)
[2018-02-04] MEDS ORDERED: Lactulose 300 ML for PR* 10 GM/15 ML BTL PR ONE (15:33)
[2018-02-04] MEDS: NS 0.9% 1000 ML* 1,000 ML IV SCH (16:14)
[2018-02-04] MEDS: Atorvastatin* 40 MG TAB PO SCH (21:38)
[2018-02-05] MEDS: NS 0.9% 1000 ML* 1,000 ML IV SCH ×3 (02:10→22:07)
[2018-02-05] MEDS: Heparin VIAL(*) 5000 UNITS/ML VIAL (FIVE THOUSAND) SUBCUT SCH ×3 (05:06→21:16)
--- NOTE | 2018-02-05 07:26 | PN ---
Subjective Date of Service: 02/05/18 Interval History: Mr. Munson is more responsive today and answers questions appropriately though is very quiet, withdrawn, and weak. He reports chest pain and is interested in trying morphine orally. He denies other complaint. Family History: Unchanged from Admission Social History: Unchanged from Admission Past Medical History: Unchanged from Admission Objective Active Medications: Acetaminophen (Tylenol Tab*) 650 mg PO Q4H PRN Albuterol (Ventolin Hfa Inhaler*) 2 puff INH Q6H PRN Albuterol/Ipratropium (Duoneb (Albuterol 2.5 Mg/Ipratropium 0.5 Mg)) 1 neb INH Q6H PRN Aspirin (Aspirin 81 Mg Chew Tab*) 81 mg PO DAILY [facility] Atorvastatin Calcium (Lipitor*) 40 mg PO BEDTIME [facility] Dextrose (D50w Syringe 50 Ml*) 12.5 gm IV PUSH .FOR FS < 60 - SS PRN Famotidine (Pepcid Tab*) 40 mg PO BID [facility] Heparin Sodium (Porcine) (Heparin Vial(*)) 5,000 units SUBCUT Q8HR [facility] Sodium Chloride (Ns 0.9% 1000 Ml*) 1,000 mls @ 100 mls/hr IV PER RATE [facility] Insulin Human Lispro (Humalog*) 0 units SUBCUT ACHS [facility]; Protocol Lidocaine (Xylocaine 2% Viscous*) 15 ml SWISH SPIT TID PRN Metoprolol Succinate (Toprol Xl Tab*) 100 mg PO DAILY [facility] Nitroglycerin (Nitroglycerin Tab 0.4 Mg*) 0.4 mg SL Q5M PRN Nystatin (Nystatin Top Powder*) 1 applic TOPICAL TID [facility] Ondansetron HCl (Zofran Inj*) 4 mg IV Q6H PRN Vital Signs: Temp Pulse Resp BP Pulse Ox 98.0 F 110 24 155/73 94 02/05/18 03:31 02/05/18 03:31 02/05/18 03:31 02/05/18 03:31 02/05/18 03:31 Oxygen Devices in Use Now: None Appearance: Male lying in bed in NAD Eyes: No Scleral Icterus Ears/Nose/Mouth/Throat: Mucous Membranes Moist Neck: Trachea Midline Respiratory: Symmetrical Chest Expansion and Respiratory Effort, - - Some scattered rhonchi Cardiovascular: NL Sounds; No Murmurs; No JVD, No Edema Abdominal: NL Sounds; No Tenderness; No Distention Extremities: No Edema, - - R BKA, L great toe amputation Skin: No Rash or Ulcers Neurological: - - Awakens to voice, answers a few questions appropriately, moves all extremities equally though weakly Nutrition: Taking PO's - Nutrition: Malnutrition Diagnosis/Plan Malnutrition Assessment by Registered Dietitian: Malnutrition Assessment Clinical Characteristics Acute,Severe Malnutrition Assessment: < or = 50% estimated needs x > or = 5 days Criteria severe wt loss: 23% x 3 weeks Malnutrition Assessment: Ensure Enlive with meals (350 kcal, 20 g pro per Interventions serving) Malnutrition Assessment: Goals 1. As able, advance diet. 2. Pt will tolerate diet advancement w/o additional GI s/sx (vomiting, abd. pain) 3. Ultimately, adequate nutrition to maintain lean body mass and hydration w/o promoting additional undesired wt loss 4. Electrolytes WNL s/p repletion Result Diagrams: 02/04/18 11:34 02/04/18 11:34 Assess/Plan/Problems-Billing Assessment: Mr. Drisocll is a 62 yo male PMH CAD s/p stents, IDDMT2, and PVD with R BKA who is a current smoker p/w 1 month epigastric/chest pain and altered mental status found to have subacute NSTEMI and NEW metastatic esophageal adenocarcinoma with mets to the liver. - Patient Problems (1) Esophageal adenocarcinoma Comment: - s/p EGD with biopsy 01/[address] Ordonez. Pathology report showing adenocarcinoma - Oncology consult appreciated, would benefit from radiation, even if palliative , poor prognosis - Pt's family very involved but are unsure of pursuing rehab vs hospice - Have asked oncology to return to discuss prognosis again with family given patient's very poor functional status and severe malnutrition. (2) Hepatic metastases Comment: - Multiple liver lesions with mediastinal lymphadenopathy and rising ammonia levels - Oncology following - Received one dose Elitek for suspected tumor lysis, although this is less likely and patient is not on cytotoxic regimen, defer to oncology for further management (3) Lethargy Comment: - Improved with lactulose CO, now able to tolerate oral meds - MRI brain negative for mets. Ryley toxic metabolic/hepatic encephalopathy in setting of liver mets. Per neuro, less likely CVA or paraneoplastic syndrome. (4) STEMI (ST elevation myocardial infarction) Comment: - Metoprolol, ASA, and atorvastatin - Subacute inferior infarction with Q waves, symptoms last month and downtrending troponins - Per Dr. Mireles - heparin gtt not clearly indicated at this time given his STEMI is likely subacute in recent weeks likely . Per Dr. Beck medical management only. (5) Bacteremia Comment: - Positive for staph hominus and staph warneri on 01/26 and 01/28 with leukocytosis. - Appreciate ID consult, likely contaminant (6) Hx of type 2 diabetes mellitus Comment: - BGs well controlled. - High dose home lantus and lispro held, as well as metformin. - Continue BGs qAC with lispro SSI coverage for meals. (7) History of COPD Comment: - Current tobacco abuse - Not in exacerbation - Albuterol PRN (8) Malnutrition Comment: - Severe protein calorie malnutrition - Encouraged PO intake including Ensure (9) History of hypertension Comment: - SBP 140s. - Continue metoprolol. (10) DVT prophylaxis Comment: - SQ heparin (11) DNR (do not resuscitate) discussion Comment: Status and Disposition: Inpatient, prognosis very poor. Patient and family interested in treatment, though agreeable to palliative care consult. Family looking for clarification on possible treatment plan and prognosis. Have asked for Dr. Spencer to return tomorrow to answer further questions. Family meeting would be appropriate if possible.
[2018-02-05] MEDS: Famotidine TAB* 20 MG PO SCH ×2 (08:01→21:08)
[2018-02-05] MEDS: Insulin LISPRO* 1 UNITS UNIT SUBCUT SCH ×5 (08:01→21:20)
[2018-02-05] MEDS: Aspirin 81 mg CHEW TAB* 81 MG TAB.CHEW PO SCH (08:01)
[2018-02-05] MEDS: Metoprolol Succinate XL TAB* 100 MG PO SCH (08:01)
[2018-02-05] MEDS: Nystatin TOP POWDER* 15 GM BTL TOPICAL SCH ×3 (08:01→21:15)
[2018-02-05] MEDS ORDERED: Morphine ORAL.SOLN 10 mg* 2 MG/ML UDC 5 ml PO PRN (09:58)
[2018-02-05] MEDS: Atorvastatin* 40 MG TAB PO SCH (21:08)
[2018-02-06] MEDS: Heparin VIAL(*) 5000 UNITS/ML VIAL (FIVE THOUSAND) SUBCUT SCH ×2 (05:10→13:26)
[2018-02-06 05:31] LABS: ABS Basophils 0.2 10^3/ul (0-0.2); ABS Eosinophils 0.1 10^3/ul (0-0.6); ABS Lymphocytes 0.6 10^3/ul (1.0-4.8); ABS Monocytes 0.7 10^3/ul (0-0.8); ABS Neutrophils 13.9 10^3/ul (1.5-7.7); ABS Nucleated RBC 0 10^3/ul; Eosinophil % 0.8 % (0-6); Hematocrit 36 % (42-52); Hemoglobin 11.7 g/dl (14.0-18.0); Lymphocyte % 3.6 % (25-47); Mean Corpuscular HGB Conc 33 g/dl (31-36); Mean Corpuscular Hemoglobin 28 pg (27-31); Mean Corpuscular Volume 85 fL (80-94); Mean Platelet Volume 7.7 um3 (7.4-10.4); Nucleated Red Blood Cells % 0.2; Platelet Count 313 10^3/ul (150-450); Red Blood Count 4.19 10^6/ul (4.00-5.40); Red Cell Distribution Width 16 % (10.5-15); White Blood Count 15.5 10^3/ul (3.5-10.8)
[2018-02-06 05:33] LABS: EGFR Non-African American 94.9 (>60)
[2018-02-06] MEDS: Insulin LISPRO* 1 UNITS UNIT SUBCUT SCH ×2 (07:29→12:41)
[2018-02-06] MEDS: Nystatin TOP POWDER* 15 GM BTL TOPICAL SCH ×3 (08:17→19:43)
[2018-02-06] MEDS: Metoprolol Succinate XL TAB* 100 MG PO SCH (08:17)
[2018-02-06] MEDS: Aspirin 81 mg CHEW TAB* 81 MG TAB.CHEW PO SCH (08:17)
[2018-02-06] MEDS: Famotidine TAB* 20 MG PO SCH (08:17)
[2018-02-06] MEDS: NS 0.9% 1000 ML* 1,000 ML IV SCH (08:28)
--- NOTE | 2018-02-06 10:39 | PN ---
Subjective Date of Service: 02/06/18 Interval History: Per nursing staff patient has not been eating for days and hallucinated intermittently. Son discussed plan with Dr. Spencer this morning deciding on taking his father home on hospice. The patients niece lives close by and will plan to help 24/hr or as needed. Both the son and niece have experience taking care of family members at the end of life. Today the patient is awake with eyes open, shakes his head no when asked if he is in pain. Doesnt answer other questions asked. Family History: Unchanged from Admission Social History: Unchanged from Admission Past Medical History: Unchanged from Admission Objective Active Medications: Acetaminophen (Tylenol Tab*) 650 mg PO Q4H PRN PRN Reason: PAIN Last Admin: 02/01/18 17:31 Dose: 650 mg Albuterol (Ventolin Hfa Inhaler*) 2 puff INH Q6H PRN PRN Reason: SOB/WHEEZING Albuterol/Ipratropium (Duoneb (Albuterol 2.5 Mg/Ipratropium 0.5 Mg)) 1 neb INH Q6H PRN PRN Reason: SOB/WHEEZING Aspirin (Aspirin 81 Mg Chew Tab*) 81 mg PO DAILY [facility] Last Admin: 02/06/18 08:17 Dose: 81 mg Atorvastatin Calcium (Lipitor*) 40 mg PO BEDTIME [facility] Last Admin: 02/05/18 21:08 Dose: 40 mg Dextrose (D50w Syringe 50 Ml*) 12.5 gm IV PUSH .FOR FS < 60 - SS PRN PRN Reason: FS < 60 Famotidine (Pepcid Tab*) 40 mg PO BID [facility] Last Admin: 02/06/18 08:17 Dose: 40 mg Heparin Sodium (Porcine) (Heparin Vial(*)) 5,000 units SUBCUT Q8HR [facility] Last Admin: 02/06/18 05:10 Dose: 5,000 units Sodium Chloride (Ns 0.9% 1000 Ml*) 1,000 mls @ 100 mls/hr IV PER RATE [facility] Last Admin: 02/06/18 08:28 Dose: 100 mls/hr Insulin Human Lispro (Humalog*) 0 units SUBCUT ACHS [facility]; Protocol Last Admin: 02/06/18 07:29 Dose: Not Given Lactulose (Lactulose*) 30 ml PO TID [facility] Last Admin: 02/06/18 08:17 Dose: 30 ml Lidocaine (Xylocaine 2% Viscous*) 15 ml SWISH SPIT TID PRN PRN Reason: pain with swallowing Metoprolol Succinate (Toprol Xl Tab*) 100 mg PO DAILY [facility] Last Admin: 02/06/18 08:17 Dose: 100 mg Morphine Sulfate (Morphine Oral.Soln 10 Mg*) 5 mg PO Q4H PRN PRN Reason: PAIN Nitroglycerin (Nitroglycerin Tab 0.4 Mg*) 0.4 mg SL Q5M PRN PRN Reason: ANGINA Last Admin: 01/27/18 11:35 Dose: 0.4 mg Nystatin (Nystatin Top Powder*) 1 applic TOPICAL TID [facility] Last Admin: 02/06/18 08:17 Dose: 1 applic Ondansetron HCl (Zofran Inj*) 4 mg IV Q6H PRN PRN Reason: NAUSEA Last Admin: 01/27/18 22:47 Dose: 4 mg Vital Signs - 8 hr 02/06/18 02/06/18 03:39 07:34 Temperature 98.6 F 98.4 F Pulse Rate 96 97 Respiratory 24 24 Rate Blood Pressure 137/62 132/65 (mmHg) O2 Sat by Pulse 95 97 Oximetry Oxygen Devices in Use Now: None Appearance: awake in NAD Eyes: PERRLA Ears/Nose/Mouth/Throat: - - poor dentition Respiratory: Symmetrical Chest Expansion and Respiratory Effort, Clear to Auscultation Cardiovascular: NL Sounds; No Murmurs; No JVD, RRR Abdominal: NL Sounds; No Tenderness; No Distention Extremities: - - s/p right BKA Neurological: - - alert - Nutrition: Malnutrition Diagnosis/Plan Malnutrition Assessment by Registered Dietitian: Malnutrition Assessment Clinical Characteristics Acute,Severe Malnutrition Assessment: < or = 50% estimated needs x > or = 5 days Criteria severe wt loss: 23% x 3 weeks Malnutrition Assessment: Ensure Enlive with meals (350 kcal, 20 g pro per Interventions serving) Malnutrition Assessment: Goals 1. As able, advance diet. 2. Pt will tolerate diet advancement w/o additional GI s/sx (vomiting, abd. pain) 3. Ultimately, adequate nutrition to maintain lean body mass and hydration w/o promoting additional undesired wt loss 4. Electrolytes WNL s/p repletion Result Diagrams: 02/06/18 05:08 02/06/18 05:08 Additional Lab and Data: Microbiology and Other Data: Microbiology 01/26/18 18:04 Blood Venous Aerobic Blood Culture - Preliminary Staphylococcus Hominis 01/26/18 18:04 Blood Venous Anaerobic Blood Culture - Preliminary Staphylococcus Hominis 01/26/18 18:04 Blood Venous Blood MRSA/MSSA (PCR) - Final Mrsa Negative S.aureus Negative 01/26/18 13:45 Blood Venous Aerobic Blood Culture - Preliminary No Growth Day 1 01/26/18 13:45 Blood Venous Anaerobic Blood Culture - Preliminary No Growth Day 1 Assess/Plan/Problems-Billing Assessment: Mr. Driscoll is a 62 yo male PMH CAD s/p stents, IDDMT2, and PVD with R BKA who is a current smoker p/w 1 month epigastric/chest pain and altered mental status found to have subacute NSTEMI and NEW metastatic esophageal adenocarcinoma with mets to the liver. - Patient Problems (1) Esophageal adenocarcinoma Comment: - s/p EGD with biopsy 01/[address] Ordonez. Pathology report showing adenocarcinoma - Oncology consult appreciated, poor prognosis - Dr. Spencer discussed with Dr. Monsalve - the plan at this point is no palliative radiation and for Hospice (2) Hepatic metastases Comment: - Multiple liver lesions with mediastinal lymphadenopathy and rising ammonia levels - Oncology following - Received one dose Elitek for suspected tumor lysis, although this is less likely and patient is not on cytotoxic regimen, defer to oncology for further management (3) Bacteremia Comment: - Positive for staph hominus and staph warneri on 01/26 and 01/28 with leukocytosis. - Appreciate ID consult, likely contaminant (4) Malnutrition Comment: - Severe protein calorie malnutrition - Encouraged PO intake including Ensure (5) Lethargy Comment: - Likley toxic metabolic/hepatic encephalopathy in setting of liver mets. (6) STEMI (ST elevation myocardial infarction) Comment: - Metoprolol, ASA, and atorvastatin - Subacute inferior infarction with Q waves, symptoms last month and downtrending troponins - Per Dr. Mireles - heparin gtt not clearly indicated at this time given his STEMI is likely subacute in recent weeks likely . Per Dr. Beck medical management only. (7) Diabetes Comment: - Continue lispro with sliding scale (8) HTN (hypertension) Comment: - Stable on ramipril and metoprolol (9) History of COPD Comment: - Current tobacco abuse - Not in exacerbation - Albuterol PRN (10) DNR (do not resuscitate) discussion Comment: (11) DVT prophylaxis Comment: - SQ heparin Status and Disposition: Inpatient, prognosis very poor. Family plans to take patient home to the sons for end of life care with Hospice
[2018-02-06] MEDS: Morphine ORAL CONCENTRATE* 5 MG/0.25 ML ORAL.SYRIN SL PRN ×2 (16:07→19:43)
[2018-02-06] MEDS ORDERED: Acetaminophen SUPP* 650 MG SUPP PR PRN (18:27)
[2018-02-07] MEDS: Morphine ORAL CONCENTRATE* 5 MG/0.25 ML ORAL.SYRIN SL PRN ×3 (04:13→12:20)
[2018-02-07] MEDS: Nystatin TOP POWDER* 15 GM BTL TOPICAL SCH (09:51)
[2018-02-07 11:12] VITALS: BP 124/61
[2018-02-07 11:16] LABS: H2GEF Result Summary Negative
--- NOTE | 2018-02-07 11:27 | DCNOTE ---
Subjective Date of Service: 02/07/18 Interval History: Patient was awake during the night per family - making some needs known but has mostly been sleeping during the day - fairly unresponsive. VSS this morning stable. Plan to transfer patient to Hospice resident. Family agrees with plan. Patient was made comfort care measures yesterday after he became more unresponsive Family History: Unchanged from Admission Social History: Unchanged from Admission Past Medical History: Unchanged from Admission Objective Active Medications: Acetaminophen (Tylenol Supp*) 650 mg [place] Q4H PRN PRN Reason: FEVER/PAIN Albuterol/Ipratropium (Duoneb (Albuterol 2.5 Mg/Ipratropium 0.5 Mg)) 1 neb INH Q6H PRN PRN Reason: SOB/WHEEZING Lactulose (Lactulose*) 30 ml PO TID [facility] Last Admin: 02/07/18 09:51 Dose: Not Given Lidocaine (Xylocaine 2% Viscous*) 15 ml SWISH SPIT TID PRN PRN Reason: pain with swallowing Morphine Sulfate (Morphine Oral Concentrate*) 5 mg SL Q2H PRN PRN Reason: PAIN Last Admin: 02/07/18 09:50 Dose: 5 mg Nystatin (Nystatin Top Powder*) 1 applic TOPICAL TID [facility] Last Admin: 02/07/18 09:51 Dose: 1 applic Vital Signs - 8 hr 02/07/18 02/07/18 02/07/18 04:13 05:53 09:50 Temperature Pulse Rate Respiratory 24 20 20 Rate Blood Pressure (mmHg) O2 Sat by Pulse Oximetry 02/07/18 10:43 Temperature 98.5 F Pulse Rate 100 Respiratory 20 Rate Blood Pressure 124/61 (mmHg) O2 Sat by Pulse 93 Oximetry Oxygen Devices in Use Now: None Appearance: chronically ill male responding to physical stimuli - opening eyes briefly then clsoes eyes - does respond verbally Eyes: No Scleral Icterus, PERRLA Ears/Nose/Mouth/Throat: - - dry MM Neck: NL Appearance and Movements; NL JVP Respiratory: Symmetrical Chest Expansion and Respiratory Effort, Clear to Auscultation Cardiovascular: - - mild course Abdominal: NL Sounds; No Tenderness; No Distention Extremities: No Edema, No Clubbing, Cyanosis Nutrition: Taking PO's Result Diagrams: 02/06/18 05:08 02/06/18 05:08 Additional Lab and Data: Microbiology and Other Data: Microbiology 01/26/18 18:04 Blood Venous Aerobic Blood Culture - Preliminary Staphylococcus Hominis 01/26/18 18:04 Blood Venous Anaerobic Blood Culture - Preliminary Staphylococcus Hominis 01/26/18 18:04 Blood Venous Blood MRSA/MSSA (PCR) - Final Mrsa Negative S.aureus Negative 01/26/18 13:45 Blood Venous Aerobic Blood Culture - Preliminary No Growth Day 1 01/26/18 13:45 Blood Venous Anaerobic Blood Culture - Preliminary No Growth Day 1 Diagnostic Imaging: CT ABDOMEN AND PELVIS Patient Name: JARVIS DRISCOLL SR Medical Record#: [id number] Ordering Physician: Colin Alcala MD Acct.#: [id number] : 1955 Age: 62 Sex: M Location: EMERGENCY DEPARTMENT Exam Date: 01/26/181558 ADM Status: REG ER Order Information: CT ABD/PEL W Accession Number: [id number] CPT: 11180 INDICATION: Abdominal pain COMPARISON: CT aortogram and runoff July 20, 2015 TECHNIQUE: Axial source images were obtained from the hemidiaphragms to the symphysis pubis following administration of oral and intravenous contrast. 100 mL Visipaque 320 was utilized. Coronal and sagittal reconstructed images were acquired. There is suboptimal contrast opacification due to difficulties with the IV. Lung bases: The lung bases are clear. There is prior cardiothoracic surgery and/ or stenting Liver: There is cirrhotic liver morphology. There are numerous hepatic lesions consistent with diffuse hepatic metastasis. These involve both right and left hepatic lobes. Similar lesions are confluent. The largest lesions measure approximately 4 cm Gallbladder: Cholecystectomy. Spleen: The spleen is mildly enlarged measuring 14 cm in diagonal dimension. There are no masses. Pancreas: No definitive focal pancreatic findings or ductal dilatation. There is extensive adjacent adenopathy is noted below. Adrenal glands: There is no evidence of adrenal mass. Kidneys: The kidneys are normal in size and position. There are prompt nephrograms and there is prompt excretion bilaterally. There is a 5 cm left renal cyst. There is also a left-sided parapelvic cyst There is no evidence of nephrolithiasis. Adenopathy: There is extensive adenopathy. There are multiple enlarged lymph nodes at the diaphragmatic hiatus. There is a confluent periportal mass measuring approximately 6 cm in greatest transverse dimension and there are multiple additional smaller peripancreatic and retroperitoneal lymph nodes extending to near the bifurcation. Assess/Plan/Problems-Billing Assessment: Mr. Driscoll is a 62 yo male PMH CAD s/p stents, IDDMT2, and PVD with R BKA who is a current smoker p/w 1 month epigastric/chest pain and altered mental status found to have subacute NSTEMI and NEW metastatic esophageal adenocarcinoma with mets to the liver. - Patient Problems (1) Comfort measures only status Comment: transfer to Hospice residence (2) Esophageal adenocarcinoma Comment: - s/p EGD with biopsy 01/[address] Ordonez. Pathology report showing adenocarcinoma - Oncology consult appreciated, poor prognosis - Dr. Spencer discussed with Dr. Monsalve - the plan at this point is no palliative radiation and for Hospice - plan to transfer to [facility] residence (3) Hepatic metastases Comment: - Multiple liver lesions with mediastinal lymphadenopathy and rising ammonia levels (4) STEMI (ST elevation myocardial infarction) Comment: (5) DNR (do not resuscitate) discussion Comment: (6) DVT prophylaxis Comment: - SQ heparin Status and Disposition: Inpatient, prognosis very poor. DC to Hospice residence
--- NOTE | 2018-02-07 16:37 | DS ---
CC: Dr. Tree Hernandez * DISCHARGE SUMMARY: DATE OF ADMISSION: 01/26/18 DATE OF DISCHARGE: 02/07/18 PROVIDER: Kristie Martin NP ATTENDING PHYSICIAN: Dr. Stanford * (report dictated by Kristie Martin NP). PRIMARY CARE PROVIDER: Dr. Tree Hernandez. HOSPITAL STATUS: Inpatient. HOSPITAL DISPOSITION: Discharged to hospice residence. DISCHARGE DIAGNOSES: 1. Adenocarcinoma of the esophagus with metastasis to the liver. 2. ST-elevation myocardial infarction. SECONDARY DIAGNOSES: 1. Tobacco abuse. 2. Type 2 diabetes. 3. Hypertension. 4. Coronary artery disease. 5. Hyperlipidemia. 6. Peripheral vascular disease. 7. Status post below the right knee amputation approximately 2 years ago secondary to diabetes. DISCHARGE MEDICATIONS: 1. Morphine oral concentrate 5 mg sublingual q. 4 hours p.r.n. pain or shortness of breath. 2. Ativan 1 mg p.o. q. 8 hours p.r.n. anxiety or agitation. HISTORY OF PRESENT ILLNESS AND HOSPITAL COURSE: Please see history and physical by Dr. Santa Stanford for full admission details but in summary, this is a 62-year-old male who presented to the emergency department on 01/26/18 with abdominal pain and difficulty keeping food down. The patient reports approximately 1 month of abdominal pain and difficulty keeping food down. Reporting that the pain and the difficulty eating seem to come and go and was intermittent. However, over time this became worse and brought him to the emergency department. The patient reported that he believes he lost approximately 100 pounds; however, due to [facility] records, the patient was about 222 pounds in January 2016 and is currently weighing around 189 pounds on admission. The patient underwent an abdomen and pelvis CT on admission which revealed cirrhotic liver morphology with extensive hepatic lesions consistent with diffuse hepatic metastasis with mild circumferential thickening of the distal esophagus suggestive of the possibility of esophageal neoplasm. He was then seen in consultation by data center solutions architect Dr. Ordonez who performed an upper endoscopy and was found to have a large mass in the esophagus extending 27 cm down to 37 cm from the incisors which appeared to be friable and bled easily. However, the pathology consistent with invasive adenocarcinoma, thought to be the primary source. As well on admission, the patient was noted to have a troponin of 0.[address]-elevations on his EKG. At that time, he was seen in consultation by classer, Dr. Mireles, who did not recommend taking the patient to the cardiac label stamper due to EKG show minimal ST-segment elevation in lead III and aVF with Q- wave already developing with no reciprocal changes noted, suggesting an inferior wall IA, age indeterminate with recommendation for aggressive cardiac management and due to his risk of medical cardiac management. The patient never complained of chest pain, the troponins peaked at 0.83, then trended down. The patient was also seen by neurologist, Dr. Moore due to changes in mental status and it was found at that time, the patient was found to be hypoxic with an O2 sat of 66% thinking that this could contribute to his confusion; however, his workup also revealed an elevated ammonia level. The patient was started on lactulose and this shortly improved his mental status. The patient has had a long hospitalization and has waxed and waned throughout hospitalization. His family has been very involved and his son, Ciaran Driscoll Jr. , who is now the healthcare proxy as decided by the patient initially was going to take the patient home on hospice with possible palliative radiation. Over the course of the past 2 days, the patient's status has greatly declined where even the past week, he has not been taking a lot of oral intake with fluids or food. Then, over the past 24 hours has become more unresponsive, having long periods of sleeping, not very responsive to verbal or physical stimuli. He does open his eyes shortly, then closes his eyes again. Per the family, last night the patient was awake in the middle of the night talking to them; however , today on evaluation, he is minimally responsive. Yesterday, there was a family meeting with myself as well as oncologist, Dr. Spencer with the tentative plan to take the patient to home; however, the family decided that this would be very difficult without help from aides in which they cannot afford to pay out of pocket at this time. The decision yesterday was made to make the patient full comfort care status with plan for hospice and the plan today is that the patient will be transported to the hospital residence in [facility]. The family agrees with the plan of care and the patient will be transferred. The patient's medications have been stopped at this time due to the patient is not taking much oral intake and has not been taking his medications over the past several days. The patient does have a Monique catheter which will remain intact. There is some hematuria noted in the Monique catheter. His hemoglobin and hematocrit have remained stable. The last blood work was on 02/06/18, showing hemoglobin of 11.7 and hematocrit of 36. Lactulose has been stopped at this time due to the patient not able to take anything orally. DISCHARGE PLAN: 1. Plan to transport the patient via ambulance today to [facility] care residence. 2. The family agrees with this plan and we will follow the patient at the residence. TIME SPENT: Approximately 60 minutes were spent on this discharge. KRISTIE MARTIN, YELITZA [id number]/CPS #: [id number] OTIS
== END 2018-02-07 12:40 | disposition hospice, inpatient (51) | DRG 240 ==
LOC: ED 15:08 → SSU 20:16 → MEDTELE 21:30
PROVIDERS: ADMIT Hospitalist; ATTEND Hospitalist
PROC: 0DB58ZX Excision of Esophagus, Via Natural or Artificial Opening Endoscopic, Diagnostic (ICD-10-PCS; principal; 2018-01-29)
DX: C15.9 Malignant neoplasm of esophagus, unspecified (principal); I21.3 ST elevation (STEMI) myocardial infarction of unspecified site; E43 Unspecified severe protein-calorie malnutrition; C78.7 Secondary malignant neoplasm of liver and intrahepatic bile duct; R78.81 Bacteremia; R18.8 Other ascites; E87.1 Hypo-osmolality and hyponatremia; I25.10 Atherosclerotic heart disease of native coronary artery without angina pectoris; J44.9 Chronic obstructive pulmonary disease, unspecified; E11.51 Type 2 diabetes mellitus with diabetic peripheral angiopathy without gangrene; E11.42 Type 2 diabetes mellitus with diabetic polyneuropathy; I10 Essential (primary) hypertension; M16.0 Bilateral primary osteoarthritis of hip; E78.5 Hyperlipidemia, unspecified; F17.210 Nicotine dependence, cigarettes, uncomplicated; K72.90 Hepatic failure, unspecified without coma; B95.7 Other staphylococcus as the cause of diseases classified elsewhere; R09.02 Hypoxemia; R31.9 Hematuria, unspecified; G47.33 Obstructive sleep apnea (adult) (pediatric); M17.0 Bilateral primary osteoarthritis of knee; M19.079 Primary osteoarthritis, unspecified ankle and foot; Z51.5 Encounter for palliative care; Z66 Do not resuscitate; R59.0 Localized enlarged lymph nodes; N28.1 Cyst of kidney, acquired; E83.52 Hypercalcemia; R13.10 Dysphagia, unspecified; Z90.49 Acquired absence of other specified parts of digestive tract; Z98.1 Arthrodesis status; Z89.422 Acquired absence of other left toe(s); Z80.9 Family history of malignant neoplasm, unspecified; Z95.5 Presence of coronary angioplasty implant and graft; I25.2 Old myocardial infarction; Z87.01 Personal history of pneumonia (recurrent); Z83.3 Family history of diabetes mellitus; Z82.3 Family history of stroke; Z89.521 Acquired absence of right knee; Z68.28 Body mass index [BMI] 28.0-28.9, adult
CPT/HCPCS: 36415; 36600; 70450; 70553; 71045; 74177; 80048; 80053; 80202; 81003; 81015; 82140; 82550; 82553; 82565; 82803; 82955; 83036; 83605; 83690; 83880; 84100; 84134; 84145; 84443; 84484; 84520; 84550; 85025; 85027; 85379; 85610; 85730; 86140; 87040; 87077; 87086; 87150; 87186; 87205; 88271; 88291; 88305; 88360; 93005; 93306; 99156; 99223; 99232; 99285; A9270-GY; A9579; J0690; J1644; J2250; J2405; J2783; J3010; J3370; Q9967